=== PATIENT | female | born 1950 | race Caucasian/White ===

== ENCOUNTER 2016-09-11 10:35 | Outpatient (RCR) | payer MEDICARE ==
[~2016-09-11 10:35] MED LIST: ASPI-266 PO; EZET1TAB16 PO; NAPR220C11 PO; OXYC1TAB25 PO; Oxycodone Hcl/Acetaminophen PO; PARO20TA4 PO; PROP40TA5 PO
--- OUTSIDE RECORDS SUMMARY | 2016-09-11 10:39 | XMS REPORT | Continuity of Care Document ---
Author Author [facility] Organization [facility] Address Unknown Phone Unavailable Care Team Providers Care Ending Machine Operator Name Role Phone Cher Mei PCP [phone] Source Comments Some departments are not documenting in the electronic medical record. If you do not see the information that you expected, contact Release of Information in the Health Information Management department at [phone] for further assistance in locating additional records.[facility] Active Allergies and Adverse Reactions Allergen Noted Date Severity Reactions Comments Codeine 11/01/2007 NAUSEA ONLY Morphine 11/01/2007 RASH Current Medications Prescription Sig. Disp. Refills Start End Date Status Date VYTORIN 10-40 PO take by mouth Daily. 11/01/19 Active Patient not sure of dose 08 TOBY PO take by mouth Daily. 11/01/19 Active Patient not sure of dose 08 INNOPRAN XL PO take by mouth Daily. 11/01/19 Active Patient not sure of dose 08 TAMOXIFEN PO take by mouth Daily. 11/01/19 Active Patient not sure of dose 08 PAXIL PO take by mouth Daily. 11/01/19 Active Patient not sure of dose 08 Aspirin 81 mg PO Tab take by mouth Daily. 11/01/19 Active 08 MULTIVITAMIN PO take by mouth Daily. 11/01/19 Active 08 Active Problems Not on file Social History Tobacco Use Types Packs/Day Years Used Date Never Assessed Plan of Care Health Maintenance Due Date Last Done Comments Physical (Comprehensive) 02/19/1956 Exam Pertussis Vaccine 02/19/1960 Tetanus Vaccine 1966 Breast Cancer Screening 1989 Colorectal Cancer 1999 Screening Shingles Vaccine 2009 Osteoporosis Screening 2014 Prevnar/Pneumovax (#1) 2014 Influenza Vaccine 06/26/2016 Results from Last 3 Months Not on file
[2016-09-11 11:07] LABS: BASOPHILS % (AUTO) 1 % (0-10); EOSINOPHILS # (AUTO) 0.1 10^3/uL (0.0-0.3); EOSINOPHILS % (AUTO) 1 % (0-10); LYMPHOCYTES % (AUTO) 31 % (12-44); MEAN CORPUSCULAR HEMOGLOBIN 30 PG (25-34); MEAN CORPUSCULAR HGB CONC 34 G/DL (32-36); MEAN CORPUSCULAR VOLUME 89 FL (80-99); MEAN PLATELET VOLUME 8.4 FL (7.4-10.4); MONOCYTES # (AUTO) 0.8 X 10^3 (0.0-1.0); MONOCYTES % (AUTO) 12 % (0-12); NEUTROPHILS # (AUTO) 3.5 X 10^3 (1.8-7.8); NEUTROPHILS % (AUTO) 55 % (42-75); PLATELET COUNT 281 10^3/uL (130-400); RED BLOOD COUNT 4.51 10^6/uL (4.35-5.85); WHITE BLOOD COUNT 6.5 10^3/uL (4.3-11.0)
[2016-09-11 12:01] LABS: BILIRUBIN,TOTAL 0.5 MG/DL (0.1-1.0); CALCIUM 9.1 MG/DL (8.5-10.1); CREATININE SERUM 1.1 MG/DL (0.60-1.30); POTASSIUM 4.2 MMOL/L (3.6-5.0); TOTAL PROTEIN 6.9 G/DL (6.4-8.2)
== END 2016-12-10 | disposition home or self-care (01) ==
LOC: ONC 10:35
PROVIDERS: ATTEND Internal Medicine Hematology & Oncology
DX: Z09 Encounter for follow-up examination after completed treatment for conditions other than malignant neoplasm (principal); Z86.000 Personal history of in-situ neoplasm of breast; I12.9 Hypertensive chronic kidney disease with stage 1 through stage 4 chronic kidney disease, or unspecified chronic kidney disease; N18.3 Chronic kidney disease, stage 3 (moderate); Z90.12 Acquired absence of left breast and nipple
CPT/HCPCS: 36415; 80053; 85025; 99213

== ENCOUNTER → 2017-10-07 | Outpatient (CLI) | payer MEDICARE, OTHER ==
[2017-10-07 10:12] LABS: BASOPHILS # (AUTO) 0.1 10^3/uL (0.0-0.1); BASOPHILS % (AUTO) 1 % (0-10); EOSINOPHILS # (AUTO) 0.1 10^3/uL (0.0-0.3); EOSINOPHILS % (AUTO) 2 % (0-10); LYMPHOCYTES % (AUTO) 36 % (12-44); MEAN CORPUSCULAR HEMOGLOBIN 31 PG (25-34); MEAN CORPUSCULAR HGB CONC 34 G/DL (32-36); MEAN CORPUSCULAR VOLUME 91 FL (80-99); MEAN PLATELET VOLUME 8.8 FL (7.4-10.4); MONOCYTES # (AUTO) 0.5 X 10^3 (0.0-1.0); MONOCYTES % (AUTO) 8 % (0-12); NEUTROPHILS % (AUTO) 53 % (42-75); PLATELET COUNT 259 10^3/uL (130-400); RED BLOOD COUNT 4.55 10^6/uL (4.35-5.85); RED CELL DISTRIBUTION WIDTH 13.1 % (10.0-14.5); WHITE BLOOD COUNT 5.7 10^3/uL (4.3-11.0)
[2017-10-07 10:30] LABS: ALBUMIN 3.9 GM/DL (3.2-4.5); BILIRUBIN,TOTAL 0.4 MG/DL (0.1-1.0); CALCIUM 9.3 MG/DL (8.5-10.1); CREATININE SERUM 1.02 MG/DL (0.60-1.30); POTASSIUM 4.2 MMOL/L (3.6-5.0); TOTAL PROTEIN 7.2 GM/DL (6.4-8.2)
== END ==
LOC: EDSTATUS 12-11 09:43 → ONC 09:59
PROVIDERS: ATTEND Internal Medicine Hematology & Oncology
DX: Z09 Encounter for follow-up examination after completed treatment for conditions other than malignant neoplasm (principal); Z86.000 Personal history of in-situ neoplasm of breast; I12.9 Hypertensive chronic kidney disease with stage 1 through stage 4 chronic kidney disease, or unspecified chronic kidney disease; N18.3 Chronic kidney disease, stage 3 (moderate)
CPT/HCPCS: 36415; 80053; 85025; 99213

== ENCOUNTER → 2018-10-05 | Outpatient (CLI) | payer MEDICARE, OTHER ==
[2018-10-05 10:15] LABS: BASOPHILS % (AUTO) 1 % (0-10); EOSINOPHILS # (AUTO) 0.1 10^3/uL (0.0-0.3); EOSINOPHILS % (AUTO) 1 % (0-10); HEMATOCRIT 41 % (35-52); HEMOGLOBIN 13.7 G/DL (11.5-16.0); LYMPHOCYTES # (AUTO) 1.9 X 10^3 (1.0-4.0); LYMPHOCYTES % (AUTO) 29 % (12-44); MEAN CORPUSCULAR HEMOGLOBIN 30 PG (25-34); MEAN CORPUSCULAR HGB CONC 33 G/DL (32-36); MEAN CORPUSCULAR VOLUME 90 FL (80-99); MEAN PLATELET VOLUME 8.7 FL (7.4-10.4); MONOCYTES # (AUTO) 0.4 X 10^3 (0.0-1.0); MONOCYTES % (AUTO) 6 % (0-12); NEUTROPHILS # (AUTO) 4.3 X 10^3 (1.8-7.8); NEUTROPHILS % (AUTO) 64 % (42-75); PLATELET COUNT 301 10^3/uL (130-400); RED BLOOD COUNT 4.61 10^6/uL (4.35-5.85); RED CELL DISTRIBUTION WIDTH 13.7 % (10.0-14.5); WHITE BLOOD COUNT 6.8 10^3/uL (4.3-11.0)
[2018-10-05 10:41] LABS: ALBUMIN 4.1 GM/DL (3.2-4.5); BILIRUBIN,TOTAL 0.5 MG/DL (0.1-1.0); CALCIUM 9.4 MG/DL (8.5-10.1); POTASSIUM 3.9 MMOL/L (3.6-5.0); TOTAL PROTEIN 7.4 GM/DL (6.4-8.2)
== END ==
LOC: ONC 10:05
PROVIDERS: ATTEND Internal Medicine Hematology & Oncology
DX: Z09 Encounter for follow-up examination after completed treatment for conditions other than malignant neoplasm (principal); Z86.000 Personal history of in-situ neoplasm of breast; I12.9 Hypertensive chronic kidney disease with stage 1 through stage 4 chronic kidney disease, or unspecified chronic kidney disease; N18.3 Chronic kidney disease, stage 3 (moderate); Z79.899 Other long term (current) drug therapy
CPT/HCPCS: 36415; 80053; 85025; 99213

== ENCOUNTER → 2018-10-21 | Outpatient (CLI) | payer MEDICARE, OTHER ==
--- NOTE | 2018-10-21 12:38 | Diagnostic Imaging Report ---
INDICATION: Routine screening. COMPARISON is made with prior right mammograms from 10/12/2017 and 09/08/2016. TECHNIQUE: Unilateral right 2-D and 3-D screening mammography was performed with CAD. FINDINGS: Right breast is heterogeneously dense, limiting the sensitivity of mammography. The parenchymal pattern is stable. There are numerous benign calcifications throughout the right breast. No mass or malignant-appearing microcalcifications are seen. Right axilla is unremarkable. IMPRESSION: BI-RADS category 2. No mammographic features suspicious for malignancy are identified. Dictated by: Dictated on workstation # [id number]
== END ==
LOC: RAD 08:34
PROVIDERS: ATTEND Internal Medicine Hematology & Oncology
DX: D05.12 Intraductal carcinoma in situ of left breast (principal); Z85.3 Personal history of malignant neoplasm of breast

== ENCOUNTER → 2019-10-06 | Outpatient (CLI) | payer MEDICARE, OTHER | LOC: ONC 10:30 | PROVIDERS: ATTEND Internal Medicine Hematology & Oncology | DX: I12.9 Hypertensive chronic kidney disease with stage 1 through stage 4 chronic kidney disease, or unspecified chronic kidney disease (principal); N18.3 Chronic kidney disease, stage 3 (moderate); E78.00 Pure hypercholesterolemia, unspecified; R92.8 Other abnormal and inconclusive findings on diagnostic imaging of breast; Z86.000 Personal history of in-situ neoplasm of breast; Z90.12 Acquired absence of left breast and nipple; Z92.3 Personal history of irradiation; Z79.810 Long term (current) use of selective estrogen receptor modulators (SERMs) | CPT/HCPCS: 99213 ==

== ENCOUNTER → 2019-10-24 | Outpatient (CLI) | payer MEDICARE, OTHER ==
--- NOTE | 2019-10-24 17:58 | Diagnostic Imaging Report ---
INDICATION: Routine screening. COMPARISON: Comparison is made with prior mammograms from 10/21/2018 and 10/12/2017. TECHNIQUE: 2-D and 3-D unilateral right screening mammography was performed. The current study was also evaluated with a Computer Aided Detection (CAD) system. 3-D tomosynthesis was also performed and reviewed. FINDINGS: The right breast remains heterogeneously dense, limiting the sensitivity of mammography. Innumerable calcifications throughout the right breast are again noted, limiting evaluation. There is a cluster in the superior right breast, slightly medial to the nipple line centrally located, which appears to show some more calcifications which are indeterminate. Magnification of this area is recommended. No mass is seen. Right axilla is unremarkable. IMPRESSION: Right breast calcifications. Additional views including magnification and 90 degree lateral views are recommended. ACR BI-RADS Category 0: Incomplete. (Needs additional imaging evaluation). Result letter will be mailed to the patient. Note: At least 10% of breast cancer is not imaged by mammography. Dictated by: Dictated on workstation # [id number]
== END ==
LOC: RAD 10:58
PROVIDERS: ATTEND Internal Medicine Hematology & Oncology
DX: Z12.31 Encounter for screening mammogram for malignant neoplasm of breast (principal); R92.1 Mammographic calcification found on diagnostic imaging of breast; Z86.000 Personal history of in-situ neoplasm of breast

== ENCOUNTER → 2019-10-28 | Outpatient (CLI) | payer MEDICARE, OTHER ==
--- NOTE | 2019-10-28 16:18 | Diagnostic Imaging Report ---
INDICATION: Right breast calcifications. Patient presents for additional views. COMPARISON: Correlation is made with screening study from 10/24/2019. TECHNIQUE: Unilateral right 2-D and 3-D diagnostic mammography was performed including magnification CC and ML views as well as a conventional 90 degree lateral view. The current study was also evaluated with a Computer Aided Detection (CAD) system. 3-D tomosynthesis was also performed and reviewed. FINDINGS: A cluster of microcalcifications in the upper right breast slightly medial to the nipple line is noted and is indeterminate. These appear more numerous than prior exam. There is some pleomorphism present. No associated mass is detected. No other abnormalities are seen. IMPRESSION: Cluster of microcalcifications in the upper and slightly inner right breast mid depth appear more numerous than prior mammograms. There is questionable pleomorphism. Tissue sampling is recommended. These would be amenable to stereotactic biopsy. ACR BI-RADS Category 4: Suspicious abnormality. Result letter will be mailed to the patient. Note: At least 10% of breast cancer is not imaged by mammography. Dictated by: Dictated on workstation # [id number]
== END ==
LOC: RAD 13:04
PROVIDERS: ATTEND Nurse Practitioner Adult Health
DX: D05.12 Intraductal carcinoma in situ of left breast (principal); R92.0 Mammographic microcalcification found on diagnostic imaging of breast; R92.8 Other abnormal and inconclusive findings on diagnostic imaging of breast

== ENCOUNTER → 2019-11-09 | Outpatient (CLI) | payer MEDICARE, OTHER ==
[~2019-11-09] VITALS: Ht 172.7 cm; Wt 90.9 kg
[~2019-11-09] MED LIST changes: +LIDOCAINE 1% INJ 20 ML 20 ML VIAL INJ ONE
--- NOTE | 2019-11-09 14:18 | Diagnostic Imaging Report ---
INDICATION: Right breast calcifications. Patient presents for stereotactic biopsy. TECHNIQUE: The patient was brought to the stereotactic suite and placed in a chair in the sitting upright position. The right breast was positioned craniocaudal. Calcifications in the upper central right breast were stereotactically targeted. The superior right breast was then prepped and draped in the usual sterile fashion. A small amount of 1% lidocaine was utilized for local anesthesia. An 8 gauge stereotactic needle was advanced into the right breast from a craniocaudal approach and placed per stereotactic coordinates. A total of four core biopsies was obtained with the vacuum-assisted device. The specimen radiograph does show microcalcifications in all four samples. The images were viewed on a dedicated workstation. A marker clip was deployed. The needle was removed and hemostasis was obtained. The followup CC and ML mammography demonstrates a marker clip in the upper central right breast. IMPRESSION: Successful stereotactic biopsy of right breast calcifications in the upper central aspect. Pathology results are currently pending. Dictated by: Dictated on workstation # [id number]
== END ==
LOC: RAD 09:51
PROVIDERS: ATTEND Nurse Practitioner Adult Health
DX: D05.12 Intraductal carcinoma in situ of left breast (principal); R92.8 Other abnormal and inconclusive findings on diagnostic imaging of breast
CPT/HCPCS: 19081

== ENCOUNTER 2019-11-24 05:30 | Outpatient (CLI) | payer MEDICARE, OTHER ==
[~2019-11-24] VITALS: Ht 172 cm; Wt 95.4 kg
[~2019-11-24 05:30] MED LIST changes: -LIDOCAINE 1% INJ 20 ML 20 ML VIAL INJ ONE
[2019-11-24] MEDS ORDERED: ASPI-999 PO (09:27)
[2019-11-24] MEDS ORDERED: PROP40TA5 PO (09:27)
[2019-11-24] MEDS ORDERED: SIMV80TA21 PO (09:27)
[2019-11-24] MEDS ORDERED: PARO20TA5 PO (09:27)
== END 2019-11-24 09:39 | disposition home or self-care (01) ==
LOC: PREOP 05:30
PROVIDERS: ATTEND Surgery
DX: Z01.818 Encounter for other preprocedural examination (principal)

== ENCOUNTER 2019-11-25 10:32 | Day surgery (SDC) | payer MEDICARE, OTHER ==
[~2019-11-25] VITALS: Ht 172 cm; Wt 95.4 kg
[2019-11-25] VITALS (8 sets, daily range): BP systolic 98–137; BP diastolic 62–76
[~2019-11-25 10:32] MED LIST changes: +ASPI-999 PO; +PARO20TA5 PO; +SIMV80TA21 PO
[2019-11-25] MEDS ORDERED: LACTATED RINGERS 1,000 ML IV PRN (10:40)
[2019-11-25] MEDS ORDERED: ceFAZolin 2 GM/50 ML NS 50 ML IV ONE (10:45)
[2019-11-25] MEDS ORDERED: PROPOFOL INJECTION 50 ML IV ONE ×2 (12:23→13:38)
[2019-11-25] MEDS ORDERED: MIDAZOLAM 2 MG/2 ML (VERSED) VIAL ONE (12:23)
[2019-11-25] MEDS ORDERED: 0.9% SODIUM CHLORIDE PF INJ 20 ML VIAL ONE (12:43)
[2019-11-25] MEDS ORDERED: BUP/EPI 0.5% 1:200,000 (SENSORCAINE) 30 ML VIAL ONE (12:43)
[2019-11-25] MEDS ORDERED: HEParin (CENTRAL IV FLUSH) 500 UNIT/5 ML SYR ONE (12:43)
--- NOTE | 2019-11-25 13:57 | Progress Note-Post Operative ---
Post-Operative Progess Note Surgeon (s)/Artillery Or Naval Gunfire Observer (s) Surgeon CAROLINA CASAS DO Artillery Or Naval Gunfire Observer: na Pre-Operative Diagnosis Right BREAST CANCER Post-Operative Diagnosis same Procedure & Operative Findings Date of Procedure 11/25/19 Procedure Performed/Findings left IJ u/s guided port placement Anesthesia Type per field project manager Estimated Blood Loss Estimated blood loss (mL): min Specimens/Packing Specimens Removed na CAROLINA CASAS DO Nov 25, 2019 13:57
[2019-11-25] MEDS ORDERED: MEPERIDINE (DEMEROL) INJ 50 MG/ML IVP ONE (14:00)
[2019-11-25] MEDS ORDERED: ONDANSETRON 4 MG/2 ML (SDV) Z0FRAN IVP PRN (14:00)
[2019-11-25] MEDS ORDERED: fentaNYL INJECTION 100 MCG/2 ML AMP IVP ONE (14:00)
--- NOTE | 2019-11-25 14:03 | Discharge Inst-Simple/Standard ---
Discharge Inst-Standard Patient Instructions/Follow Up Plan of Care/Instructions/FU: 2 weeks Jorge Activity as Tolerated: No Discharge Diet: Regular Diet Other Inst to Patient Follow up Appt: Make appointment for 2 week. Instructions: No lifting greater than 10 pounds. No strenuous activity. May shower in 24 hours, no tub bath or soaking. Use incentive spirometer at home as directed. No Smoking Skin/Wound Care: May remove bandages in 24 hours, you have special glue over incisions it will fall off on its own. Place ice pack on 15 min then off 30 min and repeat to reduce swelling and discomfort for first 48 hours while awake. Symptoms to Report: Appetite Changes, Extremity Discoloration, Numbness/Tingling, Swelling Increased, Bleeding Excessive, Eyesight Changes, Pain Increased, Urine Color Change, Constipation(Persistent), Fever over 101 degree F, Pain/Pressure in chest, Urinating Difficulty, Cough Up/Vomit Blood, Heart Beat Irreg/Pounding, Pa in/Pressure in jaw, Vaginal Bleeding Increase, Cramps in feet or legs, Lightheadedness, Pain/Pressure in shoulder, Diarrhea(Persistent), Memory Changes Suddenly, Questions/Concerns, Weight gain consecutive days, Dizziness/Fainting, Nausea/Vomiting, Shortness of Breath, Weight gain over 2 pounds If questions or concerns contact your physician Or seek help at emergency department. CAROLINA CASAS DO Nov 25, 2019 14:03
--- NOTE | 2019-11-25 14:29 | Anesthesia-General Post-Op ---
MAC Patient Condition Mental Status/LOC: Same as Preop Cardiovascular: Satisfactory Nausea/Vomiting: Absent Respiratory: Satisfactory Pain: Controlled Complications: Absent Post Op Complications Complications None Follow Up Care/Instructions Patient Instructions None needed. Anesthesiology Discharge Order Discharge Order Patient is doing well, no complaints, stable vital signs, no apparent adverse anesthesia problems. No complications reported per nursing. RED SEN CRNA Nov 25, 2019 14:29
--- NOTE | 2019-11-25 14:39 | Diagnostic Imaging Report ---
INDICATION: Port placement. TIME OF EXAM: 2:16 p.m. FINDINGS: Left-sided port has tip overlying the SVC. Lungs are clear. No pneumothorax is detected. There is no effusion. IMPRESSION: Port placement. No pneumothorax is identified. Dictated by: Dictated on workstation # [id number]
--- NOTE | 2019-11-25 15:05 | Diagnostic Imaging Report ---
INDICATION: Undergoing port placement. TECHNIQUE: Single intraprocedural images superior [facility] [place] [facility]. FINDINGS/ IMPRESSION: The hospital radiology department provided fluoroscopic imaging for the clinical service in support of an interventional procedure. A radiologist was not involved in the procedure. Please reference the operating provider's procedure note. FLUOROSCOPY TIME: 38.0 seconds. Single intraprocedure image demonstrates a left IJ Ordgsr-E-Tkwx catheter to be present. Tip projects over the right paramediastinal region. If further imaging evaluation is desired, post-procedure chest radiograph would be recommended. Dictated by: Dictated on workstation # [id number]
--- NOTE | 2019-11-25 21:59 | OPERATIVE REPORT ---
DATE OF SERVICE: 11/25/2019 PREOPERATIVE DIAGNOSIS: Right breast cancer. POSTOPERATIVE DIAGNOSIS: Right breast cancer. PROCEDURE: Left internal jugular vein ultrasound-guided port placement. SURGEON: Carolina Patel DO ANESTHESIA: MAC with local. ESTIMATED BLOOD LOSS: Minimal. COMPLICATIONS: None. INDICATIONS: The patient is a 69-year-old female with recent diagnosis of right breast cancer. She needs port for chemotherapy. She understands risks and benefits of procedure and wished to proceed with procedure. Consent was signed in the chart. DESCRIPTION OF PROCEDURE: The patient was taken to the operating suite, was prepped and draped in sterile fashion. Timeout was performed. Ultrasound was used to locate the left internal jugular vein. Local anesthetic was infiltrated around it and the vein was then accessed using micro access needle. Dark nonpulsatile blood was withdrawn. Micro access wire was inserted through the needle and the needle was removed. A #11 blade scalpel was used to make a small stab incision. Dilator was then advanced over the guidewire and the guidewire and the dilator were removed. The normal guidewire was inserted through the sheath and the sheath was then removed. Fluoroscopy assured proper placement. The wire was then secured. Local anesthetic was infiltrated from the left neck down to the left chest for pocket creation. A 15 blade scalpel was used to make a skin incision on the left chest and taken down to the pectoral muscle, which was then bluntly dissected for pocket. The dilator sheath was then advanced over the guidewire under fluoroscopy and the dilator and wire were removed. The Groshong catheter was inserted through the sheath and the sheath was then removed. The Groshong wire was then removed and the catheter was then tunneled from the insertion point down to the pocket that was created on the left chest. The fluoroscopy was used to cut the catheter to length and this was then attached to the port and secured and then placed within the pocket in the usual fashion. The port was then accessed without difficulty and then flushed with saline and then heparin. Subcutaneous tissues were then reapproximated using 3-0 Vicryl and the skin was then closed using Skin Affix at the incision and on the left neck insertion site. The patient tolerated procedure well without any complications. She was taken to recovery room in stable condition. Chest x-ray pending. Job ID: [id number] DocumentID: [id number] Dictated Date: 11/25/2019 20:30:51 Tariff Compiling Clerk Date: 11/25/2019 21:58:42 Dictated By: CAROLINA PATEL DO
== END 2019-11-25 15:00 | disposition home or self-care (01) ==
LOC: SDC 10:32
PROVIDERS: ATTEND Surgery
DX: C50.911 Malignant neoplasm of unspecified site of right female breast (principal); I10 Essential (primary) hypertension; G43.909 Migraine, unspecified, not intractable, without status migrainosus; E78.00 Pure hypercholesterolemia, unspecified; E78.5 Hyperlipidemia, unspecified; E66.9 Obesity, unspecified; F41.9 Anxiety disorder, unspecified; F32.9 Major depressive disorder, single episode, unspecified; Z68.32 Body mass index [BMI] 32.0-32.9, adult; Z90.12 Acquired absence of left breast and nipple; Z79.899 Other long term (current) drug therapy; Z90.49 Acquired absence of other specified parts of digestive tract; Z90.710 Acquired absence of both cervix and uterus; Z88.5 Allergy status to narcotic agent; Z82.49 Family history of ischemic heart disease and other diseases of the circulatory system; Z80.0 Family history of malignant neoplasm of digestive organs
CPT/HCPCS: 71045; 87081

== ENCOUNTER → 2019-11-29 | Outpatient (CLI) | payer MEDICARE, OTHER | END | disposition home or self-care (01) | LOC: PREOP 05:41 | PROVIDERS: ATTEND Surgery | DX: Z01.818 Encounter for other preprocedural examination (principal) ==

== ENCOUNTER → 2019-11-29 | Outpatient (CLI) | payer MEDICARE, OTHER ==
--- NOTE | 2019-11-29 15:02 | Diagnostic Imaging Report ---
INDICATION: Left breast carcinoma. Patient also has newly diagnosed right breast carcinoma. TECHNIQUE: Serum blood glucose level at the time of injection is 94 mg/dL. Patient was administered 14.8 mCi F-18 FDG intravenously in the right antecubital location and PET imaging was performed from the top of the skull through mid thighs. Noncontrast CT was also performed for attenuation correction and anatomic correlation. All CT scans use one or more of the following dose optimizing techniques: Automated exposure control, MA and/or KvP adjustment based on patient size and exam type or iterative reconstruction. COMPARISON: No prior studies are available for comparison. FINDINGS: Symmetric uptake of activity by the brain is identified. There is normal physiologic activity in the oropharynx. There is fairly diffuse and symmetric uptake of activity within both lobes of the thyroid gland. This could be on the basis of chronic thyroiditis. Postsurgical changes of left mastectomy are noted. There is a focus of uptake in the right breast with SUV max of approximately 3.8. This likely represents patient's known recently diagnosed breast carcinoma. No definite mediastinal or hilar hypermetabolism is identified. No pulmonary parenchymal hypermetabolism is identified. Imaging through the abdomen and pelvis demonstrates physiologic activity within the GI and tracts. No suspicious focus of FDG avidity is identified. IMPRESSION: 1. Focus of hypermetabolism in right breast, likely representing patient's recently diagnosed right breast carcinoma. 2. Diffuse uptake in both lobes of the thyroid gland, suggestive of chronic thyroiditis. 3. Otherwise, unremarkable PET/CT study. There are no findings to suggest metastatic disease. Dictated by: Dictated on workstation # [id number]
== END ==
LOC: RAD 11:12
PROVIDERS: ATTEND Nurse Practitioner Adult Health
DX: C50.211 Malignant neoplasm of upper-inner quadrant of right female breast (principal)

== ENCOUNTER → 2019-12-01 | Outpatient (CLI) | payer MEDICARE, OTHER | LOC: CARD 12:55 | PROVIDERS: ATTEND Nurse Practitioner Adult Health | DX: Z01.810 Encounter for preprocedural cardiovascular examination (principal); C50.211 Malignant neoplasm of upper-inner quadrant of right female breast; I34.0 Nonrheumatic mitral (valve) insufficiency | CPT/HCPCS: 93306 ==

== ENCOUNTER → 2020-02-20 | Outpatient (RCR) | payer MEDICARE, OTHER ==
[2019-11-29 09:33] LABS: BASOPHILS % (AUTO) 1 % (0-10); EOSINOPHILS # (AUTO) 0.1 10^3/uL (0.0-0.3); EOSINOPHILS % (AUTO) 2 % (0-10); HEMATOCRIT 37 % (35-52); HEMOGLOBIN 11.6 G/DL (11.5-16.0); LYMPHOCYTES # (AUTO) 1.6 X 10^3 (1.0-4.0); LYMPHOCYTES % (AUTO) 22 % (12-44); MEAN CORPUSCULAR HEMOGLOBIN 27 PG (25-34); MEAN CORPUSCULAR HGB CONC 32 G/DL (32-36); MEAN CORPUSCULAR VOLUME 85 FL (80-99); MEAN PLATELET VOLUME 8.8 FL (7.4-10.4); MONOCYTES # (AUTO) 0.6 X 10^3 (0.0-1.0); MONOCYTES % (AUTO) 9 % (0-12); NEUTROPHILS # (AUTO) 4.6 X 10^3 (1.8-7.8); NEUTROPHILS % (AUTO) 67 % (42-75); PLATELET COUNT 329 10^3/uL (130-400); RED CELL DISTRIBUTION WIDTH 13.9 % (10.0-14.5)
[2019-11-29 09:55] LABS: ALBUMIN 3.9 GM/DL (3.2-4.5); BILIRUBIN,TOTAL 0.3 MG/DL (0.1-1.0); CALCIUM 8.8 MG/DL (8.5-10.1); CREATININE SERUM 0.94 MG/DL (0.60-1.30); POTASSIUM 4.4 MMOL/L (3.6-5.0); TOTAL PROTEIN 7.2 GM/DL (6.4-8.2)
[2019-12-12 09:03] LABS: BASOPHILS % (AUTO) 1 % (0-10); EOSINOPHILS # (AUTO) 0.1 10^3/uL (0.0-0.3); EOSINOPHILS % (AUTO) 2 % (0-10); HEMATOCRIT 35 % (35-52); HEMOGLOBIN 10.9 G/DL (11.5-16.0); LYMPHOCYTES # (AUTO) 1.5 X 10^3 (1.0-4.0); LYMPHOCYTES % (AUTO) 25 % (12-44); MEAN CORPUSCULAR HEMOGLOBIN 27 PG (25-34); MEAN CORPUSCULAR HGB CONC 32 G/DL (32-36); MEAN CORPUSCULAR VOLUME 85 FL (80-99); MEAN PLATELET VOLUME 8.9 FL (7.4-10.4); MONOCYTES # (AUTO) 0.3 X 10^3 (0.0-1.0); MONOCYTES % (AUTO) 5 % (0-12); NEUTROPHILS # (AUTO) 4.1 X 10^3 (1.8-7.8); NEUTROPHILS % (AUTO) 67 % (42-75); PLATELET COUNT 339 10^3/uL (130-400); RED CELL DISTRIBUTION WIDTH 13.9 % (10.0-14.5); WHITE BLOOD COUNT 6.1 10^3/uL (4.3-11.0)
[2019-12-12 09:19] LABS: CALCIUM 8.6 MG/DL (8.5-10.1); CREATININE SERUM 0.92 MG/DL (0.60-1.30); POTASSIUM 3.9 MMOL/L (3.6-5.0)
[2019-12-19 09:25] LABS: BASOPHILS % (AUTO) 0 % (0-10); EOSINOPHILS % (AUTO) 0 % (0-10); HEMATOCRIT 35 % (35-52); HEMOGLOBIN 11.4 G/DL (11.5-16.0); LYMPHOCYTES # (AUTO) 0.7 X 10^3 (1.0-4.0); LYMPHOCYTES % (AUTO) 13 % (12-44); MEAN CORPUSCULAR HEMOGLOBIN 27 PG (25-34); MEAN CORPUSCULAR HGB CONC 32 G/DL (32-36); MEAN CORPUSCULAR VOLUME 83 FL (80-99); MEAN PLATELET VOLUME 8.6 FL (7.4-10.4); MONOCYTES # (AUTO) 0.1 X 10^3 (0.0-1.0); MONOCYTES % (AUTO) 1 % (0-12); NEUTROPHILS # (AUTO) 4.7 X 10^3 (1.8-7.8); NEUTROPHILS % (AUTO) 86 % (42-75); PLATELET COUNT 414 10^3/uL (130-400); RED CELL DISTRIBUTION WIDTH 14.3 % (10.0-14.5); WHITE BLOOD COUNT 5.5 10^3/uL (4.3-11.0)
[2019-12-19 09:47] LABS: CALCIUM 9.2 MG/DL (8.5-10.1); CREATININE SERUM 1.17 MG/DL (0.60-1.30); POTASSIUM 3.9 MMOL/L (3.6-5.0)
[2019-12-26 08:53] LABS: BASOPHILS % (AUTO) 0 % (0-10); EOSINOPHILS % (AUTO) 0 % (0-10); HEMATOCRIT 35 % (35-52); LYMPHOCYTES # (AUTO) 0.6 X 10^3 (1.0-4.0); LYMPHOCYTES % (AUTO) 17 % (12-44); MEAN CORPUSCULAR HEMOGLOBIN 26 PG (25-34); MEAN CORPUSCULAR HGB CONC 31 G/DL (32-36); MEAN CORPUSCULAR VOLUME 84 FL (80-99); MEAN PLATELET VOLUME 8.9 FL (7.4-10.4); MONOCYTES % (AUTO) 1 % (0-12); NEUTROPHILS # (AUTO) 2.8 X 10^3 (1.8-7.8); NEUTROPHILS % (AUTO) 82 % (42-75); PLATELET COUNT 379 10^3/uL (130-400); RED CELL DISTRIBUTION WIDTH 14.4 % (10.0-14.5); WHITE BLOOD COUNT 3.4 10^3/uL (4.3-11.0)
[2019-12-26 09:14] LABS: BILIRUBIN,TOTAL 0.2 MG/DL (0.1-1.0); CALCIUM 8.8 MG/DL (8.5-10.1); CREATININE SERUM 1.09 MG/DL (0.60-1.30); POTASSIUM 3.8 MMOL/L (3.6-5.0); TOTAL PROTEIN 7.2 GM/DL (6.4-8.2)
[2020-01-02 09:06] LABS: BASOPHILS % (AUTO) 1 % (0-10); EOSINOPHILS # (AUTO) 0.1 10^3/uL (0.0-0.3); EOSINOPHILS % (AUTO) 2 % (0-10); HEMATOCRIT 35 % (35-52); HEMOGLOBIN 10.9 G/DL (11.5-16.0); LYMPHOCYTES # (AUTO) 1.4 X 10^3 (1.0-4.0); LYMPHOCYTES % (AUTO) 31 % (12-44); MEAN CORPUSCULAR HEMOGLOBIN 27 PG (25-34); MEAN CORPUSCULAR HGB CONC 31 G/DL (32-36); MEAN CORPUSCULAR VOLUME 85 FL (80-99); MONOCYTES # (AUTO) 0.4 X 10^3 (0.0-1.0); MONOCYTES % (AUTO) 9 % (0-12); NEUTROPHILS # (AUTO) 2.6 X 10^3 (1.8-7.8); NEUTROPHILS % (AUTO) 57 % (42-75); PLATELET COUNT 360 10^3/uL (130-400); RED CELL DISTRIBUTION WIDTH 14.9 % (10.0-14.5); WHITE BLOOD COUNT 4.5 10^3/uL (4.3-11.0)
[2020-01-02 09:25] LABS: CALCIUM 8.8 MG/DL (8.5-10.1); POTASSIUM 3.5 MMOL/L (3.6-5.0)
[2020-01-09 09:24] LABS: BASOPHILS % (AUTO) 1 % (0-10); EOSINOPHILS # (AUTO) 0.1 10^3/uL (0.0-0.3); EOSINOPHILS % (AUTO) 2 % (0-10); HEMATOCRIT 35 % (35-52); HEMOGLOBIN 10.8 G/DL (11.5-16.0); LYMPHOCYTES # (AUTO) 1.5 X 10^3 (1.0-4.0); LYMPHOCYTES % (AUTO) 26 % (12-44); MEAN CORPUSCULAR HEMOGLOBIN 26 PG (25-34); MEAN CORPUSCULAR HGB CONC 31 G/DL (32-36); MEAN CORPUSCULAR VOLUME 84 FL (80-99); MONOCYTES # (AUTO) 0.5 X 10^3 (0.0-1.0); MONOCYTES % (AUTO) 8 % (0-12); NEUTROPHILS # (AUTO) 3.5 X 10^3 (1.8-7.8); NEUTROPHILS % (AUTO) 63 % (42-75); PLATELET COUNT 345 10^3/uL (130-400); WHITE BLOOD COUNT 5.5 10^3/uL (4.3-11.0)
[2020-01-09 09:44] LABS: ALBUMIN 3.8 GM/DL (3.2-4.5); BILIRUBIN,TOTAL 0.4 MG/DL (0.1-1.0); CALCIUM 8.8 MG/DL (8.5-10.1); CREATININE SERUM 0.96 MG/DL (0.60-1.30); POTASSIUM 3.6 MMOL/L (3.6-5.0); TOTAL PROTEIN 6.5 GM/DL (6.4-8.2)
[2020-01-16 09:24] LABS: BASOPHILS # (AUTO) 0.1 10^3/uL (0.0-0.1); BASOPHILS % (AUTO) 1 % (0-10); EOSINOPHILS # (AUTO) 0.1 10^3/uL (0.0-0.3); EOSINOPHILS % (AUTO) 1 % (0-10); HEMATOCRIT 33 % (35-52); HEMOGLOBIN 10.7 G/DL (11.5-16.0); LYMPHOCYTES # (AUTO) 1.6 X 10^3 (1.0-4.0); LYMPHOCYTES % (AUTO) 23 % (12-44); MEAN CORPUSCULAR HEMOGLOBIN 27 PG (25-34); MEAN CORPUSCULAR HGB CONC 32 G/DL (32-36); MEAN CORPUSCULAR VOLUME 84 FL (80-99); MEAN PLATELET VOLUME 8.6 FL (7.4-10.4); MONOCYTES # (AUTO) 0.5 X 10^3 (0.0-1.0); MONOCYTES % (AUTO) 7 % (0-12); NEUTROPHILS # (AUTO) 4.8 X 10^3 (1.8-7.8); NEUTROPHILS % (AUTO) 68 % (42-75); PLATELET COUNT 348 10^3/uL (130-400)
[2020-01-16 09:42] LABS: ALBUMIN 3.8 GM/DL (3.2-4.5); BILIRUBIN,TOTAL 0.3 MG/DL (0.1-1.0); CALCIUM 8.6 MG/DL (8.5-10.1); CREATININE SERUM 0.96 MG/DL (0.60-1.30); POTASSIUM 3.6 MMOL/L (3.6-5.0); TOTAL PROTEIN 6.6 GM/DL (6.4-8.2)
[2020-01-23 09:45] LABS: BASOPHILS # (AUTO) 0.1 10^3/uL (0.0-0.1); BASOPHILS % (AUTO) 1 % (0-10); EOSINOPHILS # (AUTO) 0.1 10^3/uL (0.0-0.3); EOSINOPHILS % (AUTO) 2 % (0-10); HEMATOCRIT 35 % (35-52); HEMOGLOBIN 11.2 G/DL (11.5-16.0); LYMPHOCYTES # (AUTO) 1.5 X 10^3 (1.0-4.0); LYMPHOCYTES % (AUTO) 23 % (12-44); MEAN CORPUSCULAR HEMOGLOBIN 27 PG (25-34); MEAN CORPUSCULAR HGB CONC 32 G/DL (32-36); MEAN CORPUSCULAR VOLUME 84 FL (80-99); MEAN PLATELET VOLUME 8.9 FL (7.4-10.4); MONOCYTES # (AUTO) 0.4 X 10^3 (0.0-1.0); MONOCYTES % (AUTO) 6 % (0-12); NEUTROPHILS # (AUTO) 4.2 X 10^3 (1.8-7.8); NEUTROPHILS % (AUTO) 68 % (42-75); PLATELET COUNT 384 10^3/uL (130-400); RED CELL DISTRIBUTION WIDTH 16.2 % (10.0-14.5); WHITE BLOOD COUNT 6.3 10^3/uL (4.3-11.0)
[2020-01-23 10:01] LABS: CALCIUM 8.5 MG/DL (8.5-10.1); CREATININE SERUM 1.16 MG/DL (0.60-1.30); POTASSIUM 3.3 MMOL/L (3.6-5.0)
[2020-01-30 09:15] LABS: BASOPHILS % (AUTO) 1 % (0-10); EOSINOPHILS # (AUTO) 0.1 10^3/uL (0.0-0.3); EOSINOPHILS % (AUTO) 1 % (0-10); HEMATOCRIT 33 % (35-52); HEMOGLOBIN 10.6 G/DL (11.5-16.0); LYMPHOCYTES # (AUTO) 1.6 X 10^3 (1.0-4.0); LYMPHOCYTES % (AUTO) 27 % (12-44); MEAN CORPUSCULAR HEMOGLOBIN 27 PG (25-34); MEAN CORPUSCULAR HGB CONC 32 G/DL (32-36); MEAN CORPUSCULAR VOLUME 85 FL (80-99); MEAN PLATELET VOLUME 8.5 FL (7.4-10.4); MONOCYTES # (AUTO) 0.4 X 10^3 (0.0-1.0); MONOCYTES % (AUTO) 6 % (0-12); NEUTROPHILS # (AUTO) 3.8 X 10^3 (1.8-7.8); NEUTROPHILS % (AUTO) 64 % (42-75); PLATELET COUNT 346 10^3/uL (130-400); WHITE BLOOD COUNT 5.9 10^3/uL (4.3-11.0)
[2020-01-30 09:35] LABS: CALCIUM 8.6 MG/DL (8.5-10.1); CREATININE SERUM 1.01 MG/DL (0.60-1.30); POTASSIUM 3.5 MMOL/L (3.6-5.0)
[2020-02-06 09:20] LABS: BASOPHILS # (AUTO) 0.1 10^3/uL (0.0-0.1); BASOPHILS % (AUTO) 1 % (0-10); EOSINOPHILS # (AUTO) 0.1 10^3/uL (0.0-0.3); EOSINOPHILS % (AUTO) 1 % (0-10); HEMATOCRIT 34 % (35-52); LYMPHOCYTES # (AUTO) 1.8 X 10^3 (1.0-4.0); LYMPHOCYTES % (AUTO) 23 % (12-44); MEAN CORPUSCULAR HEMOGLOBIN 27 PG (25-34); MEAN CORPUSCULAR HGB CONC 32 G/DL (32-36); MEAN CORPUSCULAR VOLUME 84 FL (80-99); MEAN PLATELET VOLUME 8.5 FL (7.4-10.4); MONOCYTES # (AUTO) 0.6 X 10^3 (0.0-1.0); MONOCYTES % (AUTO) 8 % (0-12); NEUTROPHILS # (AUTO) 5.2 X 10^3 (1.8-7.8); NEUTROPHILS % (AUTO) 67 % (42-75); PLATELET COUNT 386 10^3/uL (130-400); RED CELL DISTRIBUTION WIDTH 17.3 % (10.0-14.5); WHITE BLOOD COUNT 7.8 10^3/uL (4.3-11.0)
[2020-02-06 09:28] LABS: ALBUMIN 3.7 GM/DL (3.2-4.5); CHLORIDE 105 MMOL/L (98-107); POTASSIUM 3.7 MMOL/L (3.6-5.0); SODIUM 140 MMOL/L (135-145)
[2020-02-06 09:30] LABS: CALCIUM 8.6 MG/DL (8.5-10.1)
[2020-02-06 09:31] LABS: GLUCOSE 99 MG/DL (70-105); TOTAL PROTEIN 6.7 GM/DL (6.4-8.2)
[2020-02-06 09:32] LABS: CARBON DIOXIDE 25 MMOL/L (21-32)
[2020-02-06 09:33] LABS: BILIRUBIN,TOTAL 0.3 MG/DL (0.1-1.0)
[2020-02-06 09:34] LABS: ALKALINE PHOSPHATASE 93 U/L (40-136); GFR ESTIMATED > 60
[2020-02-06 09:35] LABS: BUN/CREATININE RATIO 12
[2020-02-06 09:37] LABS: ALANINE AMINOTRANSFERASE 11 U/L (0-55); MAGNESIUM 2.1 MG/DL (1.6-2.4)
[2020-02-13 09:19] LABS: BASOPHILS % (AUTO) 1 % (0-10); EOSINOPHILS # (AUTO) 0.2 10^3/uL (0.0-0.3); EOSINOPHILS % (AUTO) 2 % (0-10); HEMATOCRIT 34 % (35-52); HEMOGLOBIN 10.8 G/DL (11.5-16.0); LYMPHOCYTES # (AUTO) 1.5 X 10^3 (1.0-4.0); LYMPHOCYTES % (AUTO) 20 % (12-44); MEAN CORPUSCULAR HEMOGLOBIN 28 PG (25-34); MEAN CORPUSCULAR HGB CONC 32 G/DL (32-36); MEAN CORPUSCULAR VOLUME 86 FL (80-99); MEAN PLATELET VOLUME 8.7 FL (7.4-10.4); MONOCYTES # (AUTO) 0.5 X 10^3 (0.0-1.0); MONOCYTES % (AUTO) 6 % (0-12); NEUTROPHILS # (AUTO) 5.6 X 10^3 (1.8-7.8); NEUTROPHILS % (AUTO) 72 % (42-75); PLATELET COUNT 369 10^3/uL (130-400); RED CELL DISTRIBUTION WIDTH 17.5 % (10.0-14.5); WHITE BLOOD COUNT 7.8 10^3/uL (4.3-11.0)
[2020-02-13 09:39] LABS: CALCIUM 8.4 MG/DL (8.5-10.1); CREATININE SERUM 0.97 MG/DL (0.60-1.30); POTASSIUM 3.7 MMOL/L (3.6-5.0)
[~2020-02-20] VITALS: Ht 172.7 cm; Wt 96.2 kg
[~2020-02-20] MED LIST changes: +FAMOTIDINE 20MG/2ML IV (CANCER CTR) IV SCH; +NS IV 1000 ML (CANCER CTR) IV SCH; +NS IV SCH; +ONDANSETRON MDV (CANCER CENTER 16 MG, DEXAMETHASONE INJECTION 10 MG in NS (IVPB) CANCER... IV SCH; +PACLITAXEL IV SCH; +SODIUM CHLORIDE IV SCH; +TRASTUZUMAB IV SCH; +diphenhydrAMINE 25 MG TAB (BENADRYL) CANCER CENTER PO SCH; +diphenhydrAMINE 50 MG/ML INJ (CANCER CENTER) IV PRN
[2020-02-20 09:21] LABS: BASOPHILS # (AUTO) 0.1 10^3/uL (0.0-0.1); BASOPHILS % (AUTO) 1 % (0-10); EOSINOPHILS # (AUTO) 0.2 10^3/uL (0.0-0.3); EOSINOPHILS % (AUTO) 2 % (0-10); HEMATOCRIT 35 % (35-52); HEMOGLOBIN 11.1 G/DL (11.5-16.0); LYMPHOCYTES # (AUTO) 1.9 X 10^3 (1.0-4.0); LYMPHOCYTES % (AUTO) 20 % (12-44); MEAN CORPUSCULAR HEMOGLOBIN 28 PG (25-34); MEAN CORPUSCULAR HGB CONC 32 G/DL (32-36); MEAN CORPUSCULAR VOLUME 86 FL (80-99); MEAN PLATELET VOLUME 8.9 FL (7.4-10.4); MONOCYTES # (AUTO) 0.6 X 10^3 (0.0-1.0); MONOCYTES % (AUTO) 7 % (0-12); NEUTROPHILS # (AUTO) 6.7 X 10^3 (1.8-7.8); NEUTROPHILS % (AUTO) 71 % (42-75); PLATELET COUNT 439 10^3/uL (130-400); RED CELL DISTRIBUTION WIDTH 17.8 % (10.0-14.5); WHITE BLOOD COUNT 9.4 10^3/uL (4.3-11.0)
[2020-02-20 09:37] LABS: CALCIUM 8.8 MG/DL (8.5-10.1); CREATININE SERUM 1.04 MG/DL (0.60-1.30); MAGNESIUM 2.1 MG/DL (1.6-2.4); POTASSIUM 3.9 MMOL/L (3.6-5.0)
== END | disposition home or self-care (01) ==
LOC: ONC 11-22 14:25
PROVIDERS: ATTEND Internal Medicine Hematology & Oncology
DX: Z09 Encounter for follow-up examination after completed treatment for conditions other than malignant neoplasm (principal); Z86.000 Personal history of in-situ neoplasm of breast; C50.211 Malignant neoplasm of upper-inner quadrant of right female breast; I12.9 Hypertensive chronic kidney disease with stage 1 through stage 4 chronic kidney disease, or unspecified chronic kidney disease; N18.3 Chronic kidney disease, stage 3 (moderate); Z79.899 Other long term (current) drug therapy
CPT/HCPCS: 36591; 80048; 80053; 83735; 85025; 87015; 87045; 87046; 87324; 87449; 87899; 96375; 96413; 96417

== ENCOUNTER → 2020-02-23 | Outpatient (CLI) | payer MEDICARE, OTHER ==
[~2020-02-23] MED LIST changes: -FAMOTIDINE 20MG/2ML IV (CANCER CTR) IV SCH; -NS IV 1000 ML (CANCER CTR) IV SCH; -NS IV SCH; -ONDANSETRON MDV (CANCER CENTER 16 MG, DEXAMETHASONE INJECTION 10 MG in NS (IVPB) CANCER... IV SCH; -PACLITAXEL IV SCH; -SODIUM CHLORIDE IV SCH; -TRASTUZUMAB IV SCH; -diphenhydrAMINE 25 MG TAB (BENADRYL) CANCER CENTER PO SCH; -diphenhydrAMINE 50 MG/ML INJ (CANCER CENTER) IV PRN
--- NOTE | 2020-02-23 09:35 | Diagnostic Imaging Report ---
INDICATION: Right breast carcinoma. Correlation is made with prior mammograms from 10/24/2019 and 10/21/2018. Unilateral right 2-D and 3-D diagnostic mammography was performed with CAD. Right breast remains heterogenously dense, limiting sensitivity of mammography. There are biopsy changes in the upper right breast mid depth. Previously noted suspicious microcalcifications have largely been removed. There are numerous additional calcifications throughout the right breast which appear to be fairly stable. No discrete mass is identified. The right axilla is unremarkable. IMPRESSION: BI-RADS Category 6 Postbiopsy changes in the right breast. Previously noted suspicious microcalcifications have largely been removed. There are numerous additional calcifications which are benign. No mass is seen. ACR BI-RADS Category 6: Known biopsy proven malignancy. Result letter will be mailed to the patient. Note: At least 10% of breast cancer is not imaged by mammography. Dictated by: Dictated on workstation # [id number]
--- NOTE | 2020-02-23 09:43 | Diagnostic Imaging Report ---
INDICATION: Right breast carcinoma. Correlation made with diagnostic mammogram earlier same day. Sonographic interrogation of the upper right breast from the 10-3 o'clock location was performed. No sonographic abnormality is identified. No discrete solid or cystic mass is detected. IMPRESSION: BI-RADS 6 Known right breast carcinoma status post biopsy. No discrete breast mass is identified sonographically. ACR BI-RADS Category 6: Known biopsy proven malignancy. Result letter will be mailed to the patient. Note: At least 10% of breast cancer is not imaged by mammography. Dictated by: Dictated on workstation # [id number]
== END ==
LOC: RAD 08:36
PROVIDERS: ATTEND Internal Medicine Hematology & Oncology
DX: C50.211 Malignant neoplasm of upper-inner quadrant of right female breast (principal)

== ENCOUNTER → 2020-03-01 | Outpatient (CLI) | payer MEDICARE, OTHER | LOC: CARD 12:39 | PROVIDERS: ATTEND Nurse Practitioner Adult Health | DX: Z51.81 Encounter for therapeutic drug level monitoring (principal); C50.211 Malignant neoplasm of upper-inner quadrant of right female breast; I10 Essential (primary) hypertension; R06.02 Shortness of breath; I34.0 Nonrheumatic mitral (valve) insufficiency | CPT/HCPCS: 93306 ==

== ENCOUNTER 2020-03-12 09:32 | Outpatient (RCR) | payer MEDICARE, OTHER ==
[~2020-03-12] VITALS: Ht 172 cm; Wt 91.8 kg
[~2020-03-12 09:32] MED LIST changes: +PROP20TA5 PO
== END 2020-03-12 15:04 | disposition home or self-care (01) ==
LOC: PREOP 09:32
PROVIDERS: ATTEND Surgery
DX: Z01.818 Encounter for other preprocedural examination (principal); Z01.812 Encounter for preprocedural laboratory examination; C50.911 Malignant neoplasm of unspecified site of right female breast
CPT/HCPCS: 87635

== ENCOUNTER 2020-05-21 08:49 | Outpatient (RCR) | payer MEDICARE, OTHER ==
[2020-02-27 09:12] LABS: BASOPHILS # (AUTO) 0.1 10^3/uL (0.0-0.1); BASOPHILS % (AUTO) 1 % (0-10); EOSINOPHILS # (AUTO) 0.1 10^3/uL (0.0-0.3); EOSINOPHILS % (AUTO) 2 % (0-10); HEMATOCRIT 33 % (35-52); HEMOGLOBIN 10.5 G/DL (11.5-16.0); LYMPHOCYTES # (AUTO) 1.6 X 10^3 (1.0-4.0); LYMPHOCYTES % (AUTO) 24 % (12-44); MEAN CORPUSCULAR HEMOGLOBIN 28 PG (25-34); MEAN CORPUSCULAR HGB CONC 32 G/DL (32-36); MEAN CORPUSCULAR VOLUME 87 FL (80-99); MEAN PLATELET VOLUME 8.6 FL (7.4-10.4); MONOCYTES # (AUTO) 0.4 X 10^3 (0.0-1.0); MONOCYTES % (AUTO) 6 % (0-12); NEUTROPHILS # (AUTO) 4.4 X 10^3 (1.8-7.8); NEUTROPHILS % (AUTO) 67 % (42-75); PLATELET COUNT 416 10^3/uL (130-400); WHITE BLOOD COUNT 6.6 10^3/uL (4.3-11.0)
[2020-02-27 09:35] LABS: ALBUMIN 3.7 GM/DL (3.2-4.5); BILIRUBIN,TOTAL 0.3 MG/DL (0.1-1.0); CALCIUM 8.5 MG/DL (8.5-10.1); CREATININE SERUM 1.02 MG/DL (0.60-1.30); POTASSIUM 3.6 MMOL/L (3.6-5.0); TOTAL PROTEIN 6.6 GM/DL (6.4-8.2)
[2020-03-26 09:12] LABS: BASOPHILS # (AUTO) 0.1 10^3/uL (0.0-0.1); BASOPHILS % (AUTO) 1 % (0-10); EOSINOPHILS # (AUTO) 0.6 10^3/uL (0.0-0.3); EOSINOPHILS % (AUTO) 6 % (0-10); HEMATOCRIT 32 % (35-52); HEMOGLOBIN 9.7 G/DL (11.5-16.0); LYMPHOCYTES # (AUTO) 1.2 X 10^3 (1.0-4.0); LYMPHOCYTES % (AUTO) 12 % (12-44); MEAN CORPUSCULAR HEMOGLOBIN 27 PG (25-34); MEAN CORPUSCULAR HGB CONC 31 G/DL (32-36); MEAN CORPUSCULAR VOLUME 87 FL (80-99); MEAN PLATELET VOLUME 8.8 FL (7.4-10.4); MONOCYTES # (AUTO) 0.5 X 10^3 (0.0-1.0); MONOCYTES % (AUTO) 6 % (0-12); NEUTROPHILS # (AUTO) 7.3 X 10^3 (1.8-7.8); NEUTROPHILS % (AUTO) 75 % (42-75); PLATELET COUNT 407 10^3/uL (130-400); WHITE BLOOD COUNT 9.7 10^3/uL (4.3-11.0)
[2020-03-26 09:37] LABS: ALBUMIN 3.4 GM/DL (3.2-4.5); BILIRUBIN,TOTAL 0.3 MG/DL (0.1-1.0); CALCIUM 8.6 MG/DL (8.5-10.1); CREATININE SERUM 0.99 MG/DL (0.60-1.30); POTASSIUM 3.6 MMOL/L (3.6-5.0); TOTAL PROTEIN 6.8 GM/DL (6.4-8.2)
[2020-04-23 08:59] LABS: BASOPHILS # (AUTO) 0.1 10^3/uL (0.0-0.1); BASOPHILS % (AUTO) 2 % (0-10); EOSINOPHILS # (AUTO) 0.3 10^3/uL (0.0-0.3); EOSINOPHILS % (AUTO) 6 % (0-10); HEMATOCRIT 32 % (35-52); HEMOGLOBIN 9.9 G/DL (11.5-16.0); LYMPHOCYTES # (AUTO) 1.3 X 10^3 (1.0-4.0); LYMPHOCYTES % (AUTO) 27 % (12-44); MEAN CORPUSCULAR HEMOGLOBIN 26 PG (25-34); MEAN CORPUSCULAR HGB CONC 31 G/DL (32-36); MEAN CORPUSCULAR VOLUME 85 FL (80-99); MEAN PLATELET VOLUME 8.4 FL (7.4-10.4); MONOCYTES # (AUTO) 0.5 X 10^3 (0.0-1.0); MONOCYTES % (AUTO) 10 % (0-12); NEUTROPHILS # (AUTO) 2.6 X 10^3 (1.8-7.8); NEUTROPHILS % (AUTO) 55 % (42-75); PLATELET COUNT 359 10^3/uL (130-400); RED CELL DISTRIBUTION WIDTH 15.3 % (10.0-14.5); WHITE BLOOD COUNT 4.8 10^3/uL (4.3-11.0)
[2020-04-23 09:12] LABS: ALBUMIN 3.7 GM/DL (3.2-4.5); POTASSIUM 3.9 MMOL/L (3.6-5.0)
[2020-04-23 09:14] LABS: CALCIUM 8.7 MG/DL (8.5-10.1)
[2020-04-23 09:15] LABS: TOTAL PROTEIN 7.1 GM/DL (6.4-8.2)
[2020-04-23 09:17] LABS: BILIRUBIN,TOTAL 0.3 MG/DL (0.1-1.0)
[2020-04-23 09:18] LABS: CREATININE SERUM 1.02 MG/DL (0.60-1.30)
[~2020-05-21 08:49] MED LIST changes: +DOCU-143 PO; +FAMOTIDINE 20MG/2ML IV (CANCER CTR) IV SCH; +HYDR-3812 PO; +NS IV 1000 ML (CANCER CTR) IV SCH; +NS IV SCH; +ONDANSETRON MDV (CANCER CENTER 16 MG, DEXAMETHASONE INJECTION 10 MG in NS (IVPB) CANCER... IV SCH; +TRASTUZUMAB IV SCH; +diphenhydrAMINE 25 MG TAB (BENADRYL) CANCER CENTER PO SCH
[2020-05-21 09:24] LABS: BASOPHILS # (AUTO) 0.1 10^3/uL (0.0-0.1); BASOPHILS % (AUTO) 1 % (0-10); EOSINOPHILS # (AUTO) 0.2 10^3/uL (0.0-0.3); EOSINOPHILS % (AUTO) 3 % (0-10); HEMATOCRIT 31 % (35-52); HEMOGLOBIN 9.4 G/DL (11.5-16.0); LYMPHOCYTES # (AUTO) 1.6 X 10^3 (1.0-4.0); LYMPHOCYTES % (AUTO) 27 % (12-44); MEAN CORPUSCULAR HEMOGLOBIN 24 PG (25-34); MEAN CORPUSCULAR HGB CONC 30 G/DL (32-36); MEAN CORPUSCULAR VOLUME 81 FL (80-99); MEAN PLATELET VOLUME 8.3 FL (7.4-10.4); MONOCYTES # (AUTO) 0.5 X 10^3 (0.0-1.0); MONOCYTES % (AUTO) 9 % (0-12); NEUTROPHILS # (AUTO) 3.5 X 10^3 (1.8-7.8); NEUTROPHILS % (AUTO) 60 % (42-75); PLATELET COUNT 355 10^3/uL (130-400); RED CELL DISTRIBUTION WIDTH 15.2 % (10.0-14.5); WHITE BLOOD COUNT 5.9 10^3/uL (4.3-11.0)
[2020-05-21 09:43] LABS: ALBUMIN 3.6 GM/DL (3.2-4.5); BILIRUBIN,TOTAL 0.3 MG/DL (0.1-1.0); CALCIUM 8.6 MG/DL (8.5-10.1); CREATININE SERUM 0.95 MG/DL (0.60-1.30); POTASSIUM 4.1 MMOL/L (3.6-5.0); TOTAL PROTEIN 6.9 GM/DL (6.4-8.2)
== END 2020-05-27 | disposition home or self-care (01) ==
LOC: ONC 08:49
PROVIDERS: ATTEND Internal Medicine Hematology & Oncology
DX: Z51.11 Encounter for antineoplastic chemotherapy (principal); C50.211 Malignant neoplasm of upper-inner quadrant of right female breast; I12.9 Hypertensive chronic kidney disease with stage 1 through stage 4 chronic kidney disease, or unspecified chronic kidney disease; N18.3 Chronic kidney disease, stage 3 (moderate); E78.00 Pure hypercholesterolemia, unspecified; Z86.000 Personal history of in-situ neoplasm of breast; Z79.899 Other long term (current) drug therapy; Z90.12 Acquired absence of left breast and nipple; Z92.3 Personal history of irradiation
CPT/HCPCS: 80053; 85025; 96413; G0463; 36591

== ENCOUNTER → 2020-06-11 | Outpatient (CLI) | payer MEDICARE, OTHER ==
[~2020-06-11] MED LIST changes: -FAMOTIDINE 20MG/2ML IV (CANCER CTR) IV SCH; -NS IV 1000 ML (CANCER CTR) IV SCH; -NS IV SCH; -ONDANSETRON MDV (CANCER CENTER 16 MG, DEXAMETHASONE INJECTION 10 MG in NS (IVPB) CANCER... IV SCH; -TRASTUZUMAB IV SCH; -diphenhydrAMINE 25 MG TAB (BENADRYL) CANCER CENTER PO SCH
== END ==
LOC: CARD 09:40
PROVIDERS: ATTEND Internal Medicine Hematology & Oncology
DX: Z51.11 Encounter for antineoplastic chemotherapy (principal); I34.0 Nonrheumatic mitral (valve) insufficiency; I51.7 Cardiomegaly; C50.211 Malignant neoplasm of upper-inner quadrant of right female breast; Z20.828 Contact with and (suspected) exposure to other viral communicable diseases; Z79.899 Other long term (current) drug therapy
CPT/HCPCS: 93306

== ENCOUNTER 2020-08-10 05:34 | Outpatient (RCR) | payer MEDICARE, OTHER ==
[~2020-08-10] VITALS: Ht 172 cm; Wt 88.6 kg
[~2020-08-10 05:34] MED LIST changes: +ACHD5005 PO; -HYDR-3812 PO
[2020-08-14] MEDS ORDERED: SUCR1TAB36 PO (09:49)
[2020-08-14] MEDS ORDERED: PANT40TA2 PO (09:49)
== END 2020-08-10 09:45 | disposition home or self-care (01) ==
LOC: PREOP 05:34
PROVIDERS: ATTEND Surgery
DX: Z01.812 Encounter for preprocedural laboratory examination (principal); Z20.828 Contact with and (suspected) exposure to other viral communicable diseases
CPT/HCPCS: 87635

== ENCOUNTER 2020-08-14 06:58 | Day surgery (SDC) | payer MEDICARE, OTHER ==
[~2020-08-14] VITALS: Ht 172 cm; Wt 88.6 kg
[2020-08-14] MEDS ORDERED: LACTATED RINGERS 1,000 ML IV STA (07:05)
[2020-08-14] MEDS ORDERED: LACTATED RINGERS 1,000 ML IV ONE (07:06)
[2020-08-14] MEDS ORDERED: HURRICAINE EXT TUBE (BENZOCAINE) XX PRN (07:15)
[2020-08-14 07:19] VITALS: BP 134/78
[2020-08-14] MEDS ORDERED: MIDAZOLAM 2 MG/2 ML (VERSED) VIAL ONE (07:23)
[2020-08-14] MEDS ORDERED: PROPOFOL INJECTION 50 ML IV ONE ×2 (07:23→08:42)
[2020-08-14] MEDS ORDERED: HURRICAINE EXT TUBE (BENZOCAINE) ONE (08:21)
[2020-08-14 09:30] VITALS: BP 110/68
[2020-08-14 09:35] VITALS: BP 111/74
--- NOTE | 2020-08-14 09:37 | Progress Note-Post Operative ---
Post-Operative Progess Note Surgeon (s)/Joinery Machinist (s) Surgeon CAROLINA CASAS DO Joinery Machinist: na Pre-Operative Diagnosis iron def anemia Post-Operative Diagnosis hiatal hernia, schotski's ring, reflux esophagititis, small gastric ulcers ascending colon mass, descending colon polyp, sigmoid polyp, rectal polyp, diverticulosis Procedure & Operative Findings Date of Procedure 08/14/20 Procedure Performed/Findings egd c biopsies, colonoscopy c cold biposies ascending colon mass c tattooing, hot bx polypectomy descending colon, snare polypectomy sigmoid colon polyp c tattooing, hot bx polypectomy rectal polyp Anesthesia Type per monorail hooker Estimated Blood Loss Estimated blood loss (mL): scant Specimens/Packing Specimens Removed antum, body, ge, ascending colon, descending colon sigmoid, rectal polyp CAROLINA CASAS DO Aug 14, 2020 09:37
--- NOTE | 2020-08-14 09:38 | Discharge Inst-Simple/Standard ---
Discharge Inst-Standard Discharge Medications New, Converted or Re-Newed RX: RX on Chart Patient Instructions/Follow Up Plan of Care/Instructions/FU: 2 weeks Jorge Activity as Tolerated: Yes Discharge Diet: Regular Diet (ulcer diet) CAROLINA CASAS DO Aug 14, 2020 09:38
[2020-08-14 09:40] VITALS: BP 134/65
[2020-08-14] MEDS ORDERED: SUCR1TAB36 PO (09:49)
[2020-08-14] MEDS ORDERED: PANT40TA2 PO (09:49)
[2020-08-14 10:10] VITALS: BP 113/56
[2020-08-14 10:20] VITALS: BP 113/56
--- NOTE | 2020-08-14 12:00 | OPERATIVE REPORT ---
DATE OF SERVICE: 08/14/2020 PREOPERATIVE DIAGNOSIS: Iron deficiency anemia. POSTOPERATIVE DIAGNOSES: Hiatal hernia, Schatzki's ring, reflux esophagitis, small gastric ulcers, ascending colon mass descending colon polyp, sigmoid polyp, rectal polyp, diverticulosis. PROCEDURE: EGD with biopsies, colonoscopy with cold biopsies, ascending colon mass with tattooing, hot biopsy polypectomy descending colon. Snare polypectomy, sigmoid colon polyp; with tattooing, hot biopsy polypectomy of rectal polyp. SURGEON: Carolina Patel DO ANESTHESIA: Per TECHNOLOGY DIRECTOR. ESTIMATED BLOOD LOSS: Scant. COMPLICATIONS: None. INDICATIONS: The patient is a 70-year-old female with iron deficiency anemia. She understands risks and benefits of procedure and wished to proceed with procedure. Consent was signed in the chart. DESCRIPTION OF PROCEDURE: The patient was taken to endoscopy suite, placed in the left lateral recumbent position. Timeout was performed. Scope was inserted in mouth, down the esophagus, stomach and into the duodenum without difficulty. There were no polyps, masses or ulcerations in the duodenum. Scope was slowly retracted back into the stomach where it was further insufflated. Small antral erosions/ulcerations were present in the antrum and one on the body. Biopsies of the antrum and body were obtained. Scope was retroflexed noting a small hiatal hernia. Scope was then returned to its normal position, slowly withdrawn to distal esophagus. Biopsy of the GE junction was obtained. A small Schatzki's ring was present. Some evidence of reflux esophagitis present. Scope was then slowly retracted back to completely remove noting no other pathology. Digital rectal exam was performed. There were no palpable polyps, masses or ulcerations. Scope was inserted in the rectum and advanced all the way to cecum with minimal difficulty. Prep was adequate. Scope was then slowly retracted back. There were no polyps, masses or ulcerations within the cecum. In the ascending colon, larger rectal mass was present. Multiple cold biopsies were obtained. Just distal to this area, Rimma ink was instilled in three different locations for a total of 3 mL. Scope was then slowly retracted back. No other polyps, masses or ulcerations of the ascending, transverse colon. In the descending colon, a small polyp was present, which hot biopsy polypectomy was performed. Scope was then continuously retracted back into the sigmoid colon where another larger polyp was present, which was able to have snare polypectomy performed in piecemeal. Just distal to this area, this area was tattooed as well in the same fashion previously. Scope was then continuously retracted back in the rectum, a small polyp was present, which hot biopsy polypectomy was performed. In the sigmoid colon, a minimal amount of diverticulosis was present as well to be noted. Once in the rectum, it was retroflexed noting no other pathology, scope was returned to its normal position, slowly withdrawn until completely removed. The patient tolerated procedure well without any complications. She was taken to recovery room in stable condition. RECOMMENDATIONS: The patient to follow up on biopsy results. The patient will be started on Protonix 40 mg daily and Carafate 1 gram four times a day. The patient will await biopsy results. We will discuss surgical options at that time once pathology available. Job ID: [id number] DocumentID: [id number] Dictated Date: 08/14/2020 09:43:09 Computer Lab Para Professional Date: 08/14/2020 12:00:03 Dictated By: CAROLINA PATEL DO
--- NOTE | 2020-08-14 12:10 | Anesthesia-General Post-Op ---
MAC Patient Condition Mental Status/LOC: Same as Preop Cardiovascular: Satisfactory Nausea/Vomiting: Absent Respiratory: Satisfactory Pain: Controlled Complications: Absent Post Op Complications Complications None Follow Up Care/Instructions Patient Instructions None needed. Anesthesiology Discharge Order Discharge Order Patient is doing well, no complaints, stable vital signs, no apparent adverse anesthesia problems. No complications reported per nursing. PAWEL RAMIREZ CRNA Aug 14, 2020 12:10
== END 2020-08-14 10:20 | disposition home or self-care (01) ==
LOC: ENDO 06:58
PROVIDERS: ATTEND Surgery
DX: D50.9 Iron deficiency anemia, unspecified (principal); K44.9 Diaphragmatic hernia without obstruction or gangrene; K29.50 Unspecified chronic gastritis without bleeding; K21.00 Gastro-esophageal reflux disease with esophagitis, without bleeding; D12.4 Benign neoplasm of descending colon; D12.5 Benign neoplasm of sigmoid colon; K62.1 Rectal polyp; K25.9 Gastric ulcer, unspecified as acute or chronic, without hemorrhage or perforation; K57.30 Diverticulosis of large intestine without perforation or abscess without bleeding; I12.9 Hypertensive chronic kidney disease with stage 1 through stage 4 chronic kidney disease, or unspecified chronic kidney disease; N18.30 Chronic kidney disease, stage 3 unspecified; D63.1 Anemia in chronic kidney disease; J43.9 Emphysema, unspecified; E66.9 Obesity, unspecified; Z68.29 Body mass index [BMI] 29.0-29.9, adult; Z79.82 Long term (current) use of aspirin; Z79.51 Long term (current) use of inhaled steroids; Z79.899 Other long term (current) drug therapy; Z88.5 Allergy status to narcotic agent; Z90.12 Acquired absence of left breast and nipple; Z90.710 Acquired absence of both cervix and uterus; Z90.722 Acquired absence of ovaries, bilateral

== ENCOUNTER 2020-08-20 08:58 | Outpatient (RCR) | payer MEDICARE, OTHER ==
[2020-06-18 09:05] LABS: BASOPHILS # (AUTO) 0.1 10^3/uL (0.0-0.1); BASOPHILS % (AUTO) 1 % (0-10); EOSINOPHILS # (AUTO) 0.2 10^3/uL (0.0-0.3); EOSINOPHILS % (AUTO) 2 % (0-10); HEMATOCRIT 33 % (35-52); HEMOGLOBIN 9.9 G/DL (11.5-16.0); LYMPHOCYTES # (AUTO) 1.5 X 10^3 (1.0-4.0); LYMPHOCYTES % (AUTO) 21 % (12-44); MEAN CORPUSCULAR HEMOGLOBIN 24 PG (25-34); MEAN CORPUSCULAR HGB CONC 30 G/DL (32-36); MEAN CORPUSCULAR VOLUME 79 FL (80-99); MEAN PLATELET VOLUME 8.7 FL (7.4-10.4); MONOCYTES # (AUTO) 0.5 X 10^3 (0.0-1.0); MONOCYTES % (AUTO) 7 % (0-12); NEUTROPHILS % (AUTO) 70 % (42-75); PLATELET COUNT 372 10^3/uL (130-400); WHITE BLOOD COUNT 7.2 10^3/uL (4.3-11.0)
[2020-06-18 09:31] LABS: ALBUMIN 3.7 GM/DL (3.2-4.5); BILIRUBIN,TOTAL 0.3 MG/DL (0.1-1.0); CALCIUM 8.5 MG/DL (8.5-10.1); CREATININE SERUM 0.95 MG/DL (0.60-1.30); POTASSIUM 4.1 MMOL/L (3.6-5.0); TOTAL PROTEIN 7.2 GM/DL (6.4-8.2)
[2020-07-16 09:26] LABS: BASOPHILS # (AUTO) 0.1 10^3/uL (0.0-0.1); BASOPHILS % (AUTO) 1 % (0-10); EOSINOPHILS # (AUTO) 0.1 10^3/uL (0.0-0.3); EOSINOPHILS % (AUTO) 2 % (0-10); HEMATOCRIT 37 % (35-52); HEMOGLOBIN 11.5 G/DL (11.5-16.0); LYMPHOCYTES # (AUTO) 1.5 X 10^3 (1.0-4.0); LYMPHOCYTES % (AUTO) 22 % (12-44); MEAN CORPUSCULAR HEMOGLOBIN 26 PG (25-34); MEAN CORPUSCULAR HGB CONC 31 G/DL (32-36); MEAN CORPUSCULAR VOLUME 83 FL (80-99); MEAN PLATELET VOLUME 8.8 FL (7.4-10.4); MONOCYTES # (AUTO) 0.5 X 10^3 (0.0-1.0); MONOCYTES % (AUTO) 8 % (0-12); NEUTROPHILS # (AUTO) 4.5 X 10^3 (1.8-7.8); NEUTROPHILS % (AUTO) 67 % (42-75); PLATELET COUNT 345 10^3/uL (130-400); WHITE BLOOD COUNT 6.8 10^3/uL (4.3-11.0)
[2020-07-16 09:43] LABS: ALBUMIN 3.8 GM/DL (3.2-4.5); BILIRUBIN,TOTAL 0.4 MG/DL (0.1-1.0); CALCIUM 8.6 MG/DL (8.5-10.1); CREATININE SERUM 1.01 MG/DL (0.60-1.30); TOTAL PROTEIN 7.3 GM/DL (6.4-8.2)
[2020-08-13 09:07] LABS: BASOPHILS # (AUTO) 0.1 10^3/uL (0.0-0.1); BASOPHILS % (AUTO) 1 % (0-10); EOSINOPHILS # (AUTO) 0.2 10^3/uL (0.0-0.3); EOSINOPHILS % (AUTO) 2 % (0-10); HEMATOCRIT 37 % (35-52); LYMPHOCYTES # (AUTO) 1.8 10^3/uL (1.0-4.0); LYMPHOCYTES % (AUTO) 27 % (12-44); MEAN CORPUSCULAR HEMOGLOBIN 28 pg (25-34); MEAN CORPUSCULAR HGB CONC 33 g/dL (32-36); MEAN CORPUSCULAR VOLUME 86 fL (80-99); MEAN PLATELET VOLUME 8.8 fL (9.0-12.2); MONOCYTES # (AUTO) 0.5 10^3/uL (0.0-1.0); MONOCYTES % (AUTO) 7 % (0-12); NEUTROPHILS # (AUTO) 4.2 10^3/uL (1.8-7.8); NEUTROPHILS % (AUTO) 63 % (42-75); PLATELET COUNT 322 10^3/uL (130-400); WHITE BLOOD COUNT 6.7 10^3/uL (4.3-11.0)
[2020-08-13 09:29] LABS: ALBUMIN 3.8 GM/DL (3.2-4.5); BILIRUBIN,TOTAL 0.5 MG/DL (0.1-1.0); CALCIUM 8.7 MG/DL (8.5-10.1); CREATININE SERUM 1.03 MG/DL (0.60-1.30); POTASSIUM 3.8 MMOL/L (3.6-5.0); TOTAL PROTEIN 7.1 GM/DL (6.4-8.2)
[~2020-08-20 08:58] MED LIST changes: +FERRIC CARBOXYMALTOSE (CANCER) 750 MG in NS (IVPB) CANCER CENTER 250 ML IV SCH; +NS IV 1000 ML (CANCER CTR) IV SCH; +NS IV SCH; +PANT40TA2 PO; +SUCR1TAB36 PO; +TRASTUZUMAB ANNS IV SCH; +TRASTUZUMAB IV SCH
== END 2020-08-26 | disposition home or self-care (01) ==
LOC: ONC 08:58
PROVIDERS: ATTEND Internal Medicine Hematology & Oncology
DX: Z51.11 Encounter for antineoplastic chemotherapy (principal); C50.211 Malignant neoplasm of upper-inner quadrant of right female breast; I12.9 Hypertensive chronic kidney disease with stage 1 through stage 4 chronic kidney disease, or unspecified chronic kidney disease; N18.30 Chronic kidney disease, stage 3 unspecified; E78.00 Pure hypercholesterolemia, unspecified; Z86.000 Personal history of in-situ neoplasm of breast; Z79.899 Other long term (current) drug therapy; Z90.12 Acquired absence of left breast and nipple; Z92.3 Personal history of irradiation
CPT/HCPCS: 36591; 80053; 82728; 83540; 85025; 96365; 96367; 96413

== ENCOUNTER → 2020-08-23 | Outpatient (CLI) | payer MEDICARE, OTHER ==
[~2020-08-23] MED LIST changes: -FERRIC CARBOXYMALTOSE (CANCER) 750 MG in NS (IVPB) CANCER CENTER 250 ML IV SCH; -NS IV 1000 ML (CANCER CTR) IV SCH; -NS IV SCH; -TRASTUZUMAB ANNS IV SCH; -TRASTUZUMAB IV SCH
[2020-08-23 08:30] LABS: BASOPHILS # (AUTO) 0.1 10^3/uL (0.0-0.1); BASOPHILS % (AUTO) 1 % (0-10); EOSINOPHILS # (AUTO) 0.2 10^3/uL (0.0-0.3); EOSINOPHILS % (AUTO) 3 % (0-10); HEMATOCRIT 35 % (35-52); HEMOGLOBIN 11.4 g/dL (11.5-16.0); LYMPHOCYTES # (AUTO) 1.7 10^3/uL (1.0-4.0); LYMPHOCYTES % (AUTO) 26 % (12-44); MEAN CORPUSCULAR HEMOGLOBIN 29 pg (25-34); MEAN CORPUSCULAR HGB CONC 33 g/dL (32-36); MEAN CORPUSCULAR VOLUME 87 fL (80-99); MEAN PLATELET VOLUME 8.8 fL (9.0-12.2); MONOCYTES # (AUTO) 0.5 10^3/uL (0.0-1.0); MONOCYTES % (AUTO) 7 % (0-12); NEUTROPHILS % (AUTO) 63 % (42-75); PLATELET COUNT 302 10^3/uL (130-400); WHITE BLOOD COUNT 6.4 10^3/uL (4.3-11.0)
--- NOTE | 2020-08-23 08:43 | Diagnostic Imaging Report ---
INDICATION: Colon cancer PA and lateral chest Left IJ Port-A-Cath tip projects over the SVC. Heart size and pulmonary vascularity are normal. Lungs are clear. There are no effusions or pneumothoraces. IMPRESSION: No acute abnormalities in the chest. Dictated by: Dictated on workstation # [id number]
[2020-08-23 08:49] LABS: ALBUMIN 3.7 GM/DL (3.2-4.5); BILIRUBIN,TOTAL 0.4 MG/DL (0.1-1.0); CALCIUM 8.7 MG/DL (8.5-10.1); CREATININE SERUM 1.11 MG/DL (0.60-1.30); POTASSIUM 3.6 MMOL/L (3.6-5.0); TOTAL PROTEIN 6.8 GM/DL (6.4-8.2)
== END ==
LOC: LAB 08:05 → RAD 08:05
PROVIDERS: ATTEND Surgery
DX: C18.9 Malignant neoplasm of colon, unspecified (principal)
CPT/HCPCS: 36415; 71046; 80053; 82378; 85025

== ENCOUNTER → 2020-08-29 | Outpatient (CLI) | payer MEDICARE, OTHER ==
[~2020-08-29] MED LIST changes: +CATHETER FLUSH 10 ML SYR IV PRN; +HOLD METFORMIN - RECEIVED CONTRAST 20 ML VIAL IV SCH; +IOHEXOL 350 MG/ML 100 ML (OMNIPAQUE 350) VIAL IV ONE; +LETR2.5T6 PO; +NS 100 ML (IVPB) BAG IV ONE; +PANT40TA52 PO; +SUCR1TAB PO
[2020-08-29 09:26] LABS: BASOPHILS # (AUTO) 0.1 10^3/uL (0.0-0.1); BASOPHILS % (AUTO) 1 % (0-10); EOSINOPHILS # (AUTO) 0.2 10^3/uL (0.0-0.3); EOSINOPHILS % (AUTO) 3 % (0-10); HEMATOCRIT 34 % (35-52); HEMOGLOBIN 10.8 g/dL (11.5-16.0); LYMPHOCYTES # (AUTO) 1.2 10^3/uL (1.0-4.0); LYMPHOCYTES % (AUTO) 22 % (12-44); MEAN CORPUSCULAR HEMOGLOBIN 29 pg (25-34); MEAN CORPUSCULAR HGB CONC 32 g/dL (32-36); MEAN CORPUSCULAR VOLUME 90 fL (80-99); MEAN PLATELET VOLUME 8.8 fL (9.0-12.2); MONOCYTES # (AUTO) 0.4 10^3/uL (0.0-1.0); MONOCYTES % (AUTO) 7 % (0-12); NEUTROPHILS # (AUTO) 3.7 10^3/uL (1.8-7.8); NEUTROPHILS % (AUTO) 67 % (42-75); PLATELET COUNT 264 10^3/uL (130-400); WHITE BLOOD COUNT 5.5 10^3/uL (4.3-11.0)
[2020-08-29 09:49] LABS: ALBUMIN 3.7 GM/DL (3.2-4.5); POTASSIUM 3.9 MMOL/L (3.6-5.0)
[2020-08-29 09:50] LABS: CALCIUM 8.5 MG/DL (8.5-10.1)
[2020-08-29 09:51] LABS: TOTAL PROTEIN 6.7 GM/DL (6.4-8.2)
[2020-08-29 09:53] LABS: BILIRUBIN,TOTAL 0.3 MG/DL (0.1-1.0)
--- NOTE | 2020-08-29 10:26 | Diagnostic Imaging Report ---
PROCEDURE: CT abdomen and pelvis with contrast. TECHNIQUE: Multiple contiguous axial images were obtained through the abdomen and pelvis after administration of intravenous contrast. Auto Exposure Controls were utilized during the CT exam to meet ALARA standards for radiation dose reduction. All CT scans use one or more of the following dose optimizing techniques: automated exposure control, MA and/or KvP adjustment based on patient size and exam type or iterative reconstruction. INDICATION: Colon carcinoma. COMPARISON: Correlation is made to prior CT from 10/04/2007. FINDINGS: The lung bases are clear. No discrete liver mass is identified. Gallbladder is surgically absent. No biliary ductal dilatation is seen. Pancreas and spleen are unremarkable. No adrenal mass is identified. Kidneys are unremarkable. Aorta is non-aneurysmal. No central, retroperitoneal or mesenteric lymphadenopathy is detected. There is diverticulosis of the sigmoid but no evidence of acute diverticulitis. Cecum is located in the midline deep pelvis. No pelvic lymphadenopathy is identified. Bladder is unremarkable. Uterus appears to be surgically absent. IMPRESSION: 1. Uncomplicated diverticulosis. 2. No abdominal or pelvic lymphadenopathy or mass is detected. Dictated by: Dictated on workstation # [id number]
== END ==
LOC: RAD 09:45
PROVIDERS: ATTEND Surgery
DX: C18.9 Malignant neoplasm of colon, unspecified (principal)
CPT/HCPCS: 36415; 74177; 80053; 82378; 85025

== ENCOUNTER 2020-09-03 05:45 | Outpatient (RCR) | payer MEDICARE, OTHER ==
[~2020-09-03] VITALS: Ht 172.7 cm; Wt 84.1 kg
[~2020-09-03 05:45] MED LIST changes: -CATHETER FLUSH 10 ML SYR IV PRN; -HOLD METFORMIN - RECEIVED CONTRAST 20 ML VIAL IV SCH; -IOHEXOL 350 MG/ML 100 ML (OMNIPAQUE 350) VIAL IV ONE; -NS 100 ML (IVPB) BAG IV ONE
== END 2020-09-03 09:45 | disposition home or self-care (01) ==
LOC: PREOP 05:45
PROVIDERS: ATTEND Surgery
DX: Z01.812 Encounter for preprocedural laboratory examination (principal); C18.9 Malignant neoplasm of colon, unspecified; Z20.828 Contact with and (suspected) exposure to other viral communicable diseases
CPT/HCPCS: 87635

== ENCOUNTER 2020-09-10 06:01 | Inpatient (IN) | payer MEDICARE, OTHER ==
[~2020-09-10] VITALS: Ht 172.2 cm; Wt 82.6 kg
[~2020-09-10 06:01] MED LIST changes: +HYDR-4226 PO
[2020-09-10] MEDS ORDERED: NS IV 1000 ML 1,000 ML IV STA (06:24)
[2020-09-10] MEDS ORDERED: FAMOTIDINE 20MG/2ML IV (PEPCID) IV STA (06:24)
--- NOTE | 2020-09-10 06:24 | ED GI ---
General Stated Complaint: VOMITING - POST SURG History of Present Illness Date Seen by Provider: Sep 10, 2020 Time Seen by Provider: 06:15 Allergies and Home Medications Allergies Coded Allergies: morphine (Unverified Allergy, Mild, RASH, has rec Lortab in the past, 09/06/20) codeine (Unverified Adverse Reaction, Mild, NAUSEA, 08/09/20) Home Medications Hydrocodone/Acetaminophen 1 Each Tablet, 1 TAB PO Q4-6HR Prescribed by: CAROLINA PATEL on 09/09/20 0946 Letrozole 2.5 Mg Tablet, 2.5 MG PO DAILY, (Reported) Pantoprazole Sodium 40 Mg Tablet.dr, 40 MG PO DAILY, (Reported) Paroxetine HCl 20 Mg Tablet, 20 MG PO DAILY, (Reported) Propranolol HCl 40 Mg Tablet, 40 MG PO BID, (Reported) Simvastatin 80 Mg Tablet, 80 MG PO HS, (Reported) Sucralfate 1 Gm Tablet, 1 GM PO QID PRN for ULCERS, (Reported) Patient Home Medication List Home Medication List Reviewed: Yes Review of Systems Review of Systems Constitutional: No chills, No fever EENTM: No Symptoms Reported Respiratory: No Symptoms Reported Cardiovascular: No Symptoms Reported Gastrointestinal: Abdominal Pain, Nausea, Vomiting Genitourinary: No Symptoms Reported Musculoskeletal: no symptoms reported Skin: no symptoms reported Endocrine: No Symptoms Reported Past Dyxldcp-Dfeynr-Byckpm Hx Past Med/Social Hx: Reviewed Nursing Past Med/Soc Hx Patient Social History Alcohol Beverage of Choice: Wine 2nd Hand Smoke Exposure: No Recent Hopitalizations: No Immunizations Up To Date Tetanus Booster (TDap): Less than 5yrs Date of Pneumonia Vaccine: Aug 01, 2019 Date of Influenza Vaccine: Jul 30, 2020 Seasonal Allergies Seasonal Allergies: Yes (MILD) Past Medical History Surgeries: Yes (ACOUSTIC NEUROMA, JUAN MASTECTOMY, PORT) Gallbladder, Hysterectomy Respiratory: No Currently Using CPAP: No Currently Using BIPAP: No Cardiac: Yes High Cholesterol, Hypertension Neurological: Yes Headaches /Migraines 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 Sexually Transmitted Disease: No HIV/AIDS: No Genitourinary: No Gastrointestinal: Yes (colon ca) Chronic Diarrhea Musculoskeletal: Yes (HANDS/FEET) Arthritis Endocrine: No HEENT: Yes (GLASSES) Loss of Vision: Denies Hearing Impairment: Denies Cancer: Yes Breast Did You Recieve Any Treatments: Yes What Type of Treatment Did You: Chemotherapy, Radiation, Surgical Intervention Psychosocial: Yes Anxiety, Depression Integumentary: No Recent Skin Changes Blood Disorders: Yes (FE DEF ANEMIA) Adverse Reaction/Blood Tranf: No (N/A) Family Medical History Completed stroke 19 MOTHER, FH: pancreatic cancer 19 FATHER, Hypertension 19 FATHER, 19 MOTHER, G8 BROTHER, G8 SISTER Respiratory disorder G8 BROTHER, Physical Exam Vital Signs Vital Signs - First Documented 09/10/20 06:10 Temp 35.4 Pulse 88 Resp 20 B/P (MAP) 120/82 (95) O2 Delivery Room Air Capillary Refill : Height/Weight/BMI Height: 5'8.00" Weight: 195lbs. 0.0oz. [id number]; 28.19 BMI Method: General Appearance: no apparent distress Respiratory: lungs clear, normal breath sounds Cardiovascular: normal peripheral pulses, regular rate, rhythm Gastrointestinal: soft; No guarding, No rebound; other (post surgical tende rness, incisions c/d/i ) Extremities: normal range of motion Neurologic/Psychiatric: alert, normal mood/affect, oriented x 3 Skin: other (abdominal midline incision, well healing, no signs of infection ) Progress/Results/Core Measures Results/Orders Lab Results Laboratory Tests Test 09/10/20 06:20 Range/Units White Blood Count 13.6 H 4.3-11.0 10^3/uL Red Blood Count 3.90 3.80-5.11 10^6/uL Hemoglobin 11.4 #L 11.5-16.0 g/dL Hematocrit 36 35-52 % Mean Corpuscular Volume 92 80-99 fL Mean Corpuscular Hemoglobin 29 25-34 pg Mean Corpuscular Hemoglobin Concent 32 32-36 g/dL Red Cell Distribution Width 16.2 H 10.0-14.5 % Platelet Count 426 H 130-400 10^3/uL Mean Platelet Volume 8.8 L 9.0-12.2 fL Immature Granulocyte % (Auto) 0 % Neutrophils (%) (Auto) 84 H 42-75 % Lymphocytes (%) (Auto) 10 L 12-44 % Monocytes (%) (Auto) 4 0-12 % Eosinophils (%) (Auto) 1 0-10 % Basophils (%) (Auto) 0 0-10 % Neutrophils # (Auto) 11.5 H 1.8-7.8 10^3/uL Lymphocytes # (Auto) 1.4 1.0-4.0 10^3/uL Monocytes # (Auto) 0.6 0.0-1.0 10^3/uL Eosinophils # (Auto) 0.2 0.0-0.3 10^3/uL Basophils # (Auto) 0.0 0.0-0.1 10^3/uL Immature Granulocyte # (Auto) 0.1 0.0-0.1 10^3/uL Sodium Level 141 135-145 MMOL/L Potassium Level 3.8 3.6-5.0 MMOL/L Chloride Level 104 98-107 MMOL/L Carbon Dioxide Level 23 21-32 MMOL/L Anion Gap 14 5-14 MMOL/L Blood Urea Nitrogen 17 7-18 MG/DL Creatinine 1.11 0.60-1.30 MG/DL Estimat Glomerular Filtration Rate 48 BUN/Creatinine Ratio 15 Glucose Level 132 H 70-105 MG/DL Calcium Level 9.3 8.5-10.1 MG/DL Corrected Calcium 9.5 8.5-10.1 MG/DL Total Bilirubin 0.5 0.1-1.0 MG/DL Aspartate Amino Transf (AST/SGOT) 17 5-34 U/L Alanine Aminotransferase (ALT/SGPT) 19 0-55 U/L Alkaline Phosphatase 83 40-136 U/L Total Protein 7.5 6.4-8.2 GM/DL Albumin 3.8 3.2-4.5 GM/DL My Orders Orders - EDWARDS,YANETH L DO Cbc With Automated Diff (09/10/20 06:24) Comprehensive Metabolic Panel (09/10/20 06:24) Ua Culture If Indicated (09/10/20 06:24) Acute Abd Series (09/10/20 06:24) Ondansetron Injection (Zofran Injectio (09/10/20 06:30) Ns Iv 1000 Ml (Sodium Chloride 0.9%) (09/10/20 06:24) Famotidine Injection (Pepcid Injection) (09/10/20 06:24) Ed Iv/Invasive Line Start (09/10/20 06:24) Promethazine Injection (Phenergan Injec (09/10/20 07:35) Medications Given in ED Current Medications Medications Dose Ordered Sig/Mary Route Start Time Stop Time Status Last Admin Dose Admin Ondansetron HCl 4 mg ONCE ONCE IVP 09/10/20 06:30 09/10/20 06:31 DC 09/10/20 06:37 4 MG Vital Signs/I&O 09/10/20 06:10 Temp 35.4 Pulse 88 Resp 20 B/P (MAP) 120/82 (95) O2 Delivery Room Air Progress Progress Note : Time: 08:13 Progress Note Discussed with Dr. Patel. Patient with what appears be a postop ileus. We will admit her for IV fluids and further management per Dr. Patel. Patient admitted in stable condition Diagnostic Imaging Diagonstic Imaging: Xray Plain Films/CT/US/NM/MRI: abdomen Comments post op ileus Reviewed: Reviewed by Me, Reviewed/Discussed Departure Communication (Admissions) Time/Spoke to Admitting Phy: 08:00 okay to admit, iv fluids, please consult hospitalist Time/Spoke to Consulting Phy: 08:16 Impression Primary Impression: Ileus following gastrointestinal surgery Disposition: ADMITTED INPATIENT Condition: Stable Admissions Decision to Admit Reason: Admit from ER (General) Decision to Admit/Date: Sep 10, 2020 Time/Decision to Admit Time: 08:15 Departure-Patient Inst. Referrals: SRINATH LONG MD (PCP/Family) Primary Care Physician YANETH EDWARDS DO Sep 10, 2020 06:23
[2020-09-10] MEDS ORDERED: ONDANSETRON 4 MG/2 ML (SDV) Z0FRAN IVP ONE (06:30)
[2020-09-10 06:37] LABS: BASOPHILS % (AUTO) 0 % (0-10); EOSINOPHILS # (AUTO) 0.2 10^3/uL (0.0-0.3); EOSINOPHILS % (AUTO) 1 % (0-10); HEMATOCRIT 36 % (35-52); HEMOGLOBIN 11.4 g/dL (11.5-16.0); LYMPHOCYTES # (AUTO) 1.4 10^3/uL (1.0-4.0); LYMPHOCYTES % (AUTO) 10 % (12-44); MEAN CORPUSCULAR HEMOGLOBIN 29 pg (25-34); MEAN CORPUSCULAR HGB CONC 32 g/dL (32-36); MEAN CORPUSCULAR VOLUME 92 fL (80-99); MEAN PLATELET VOLUME 8.8 fL (9.0-12.2); MONOCYTES # (AUTO) 0.6 10^3/uL (0.0-1.0); MONOCYTES % (AUTO) 4 % (0-12); NEUTROPHILS # (AUTO) 11.5 10^3/uL (1.8-7.8); NEUTROPHILS % (AUTO) 84 % (42-75); PLATELET COUNT 426 10^3/uL (130-400); WHITE BLOOD COUNT 13.6 10^3/uL (4.3-11.0)
[2020-09-10 06:50] LABS: ALBUMIN 3.8 GM/DL (3.2-4.5)
[2020-09-10 06:51] LABS: POTASSIUM 3.8 MMOL/L (3.6-5.0)
[2020-09-10 06:52] LABS: CALCIUM 9.3 MG/DL (8.5-10.1)
[2020-09-10 06:53] LABS: TOTAL PROTEIN 7.5 GM/DL (6.4-8.2)
[2020-09-10 06:55] LABS: BILIRUBIN,TOTAL 0.5 MG/DL (0.1-1.0)
[2020-09-10 06:57] LABS: CREATININE SERUM 1.11 MG/DL (0.60-1.30)
--- NOTE | 2020-09-10 06:59 | NUR ---
REPORT TO ABRIL VERAS
[2020-09-10] MEDS ORDERED: PROMETHAZINE INJ 25 MG/ML (PHENERGAN) AMP IVP STA (07:35)
--- NOTE | 2020-09-10 08:12 | Diagnostic Imaging Report ---
INDICATION: Abdominal pain. Supine and upright views of the abdomen are obtained with single view of the chest. FINDINGS: Lungs appear clear bilaterally. There is diffuse gaseous distention of small bowel. No definite free intraperitoneal gas is identified. IMPRESSION: Mild dilatation in gaseous distention of small bowel. This may reflect small bowel ileus although at least partial distal small bowel obstruction cannot be fully excluded. Dictated by: Dictated on workstation # [id number]
--- NOTE | 2020-09-10 08:18 | NUR ---
CALLED FOR ROOM
--- NOTE | 2020-09-10 08:22 | NUR ---
CALLED AND GAVE UPDATE TO AND BRING HER THINGS TO ER DOOR AND WE WILL GET THEN TO HER.
--- NOTE | 2020-09-10 08:36 | NUR ---
CALLED TO GIVE REPORT NURSE WILL CALL BACK.
--- NOTE | 2020-09-10 08:50 | NUR ---
CALLED HOUSE SUP TO COME GET PATIENT AND TRANSPORT TO FLOOR. WILL SEND SOMEONE.
--- NOTE | 2020-09-10 09:44 | NUR ---
CALLED HOUSE CHECKING TO SEE WHEN THEY MAY BE COMING TO GET PATIENT
--- NOTE | 2020-09-10 09:48 | NUR ---
STAFF FROM FLOOR HERE TO GET PATIENT.
--- NOTE | 2020-09-10 09:57 | NUR ---
NEDA RIVERA admitted to room 417-1, with an admitting diagnosis of POST OP ILEUS, on 09/10/20 from ED via WHEELCHAIR, accompanied by ED STAFF.NEDA RIVERA introduced to surroundings, call light, bed controls, phone, TV, temperature control, lights, meal times, smoking policy, visitor policy, side rail policy, bathrooms and showers. Patient Rights given to patient in the handbook. NEDA RIVERA verbalizes understanding that [facility] is not responsible for the loss or damage to any personal effects or valuables that are kept in the patients posession during their hospitalization. NEDA RIVERA verbalizes understanding of Interdisciplinary Patient Education. Patient and/or family were informed about the Rapid Response Team and its purpose.
[2020-09-10 10:04] VITALS: BP 156/81
[2020-09-10] MEDS ORDERED: ONDANSETRON 4 MG/2 ML (SDV) Z0FRAN IVP PRN ×2 (10:30→18:30)
[2020-09-10] MEDS ORDERED: NS IV 1000 ML 1,000 ML IV SCH (10:30)
--- NOTE | 2020-09-10 10:55 | Consultation - Hospitalist ---
ROBERT TYLER MED STUDENT 09/10/20 1055: HPI History of Present Illness: HPI/Chief Complaint Medicine was asked to consult for medical management on Rossana Hallman, a 70y/o F with PMH of colorectal ca r/c, breast ca r/c, HTN, hyperc holesterolemia, and gastric ulcer. Pt presented to the ER this morning with nausea and vomiting. Pt was discharged yesterday after being monitored post sub- total colectomy, performed by Dr Patel, for resection of colorectal adenocarcinoma. Pt returned to ER this morning after having persistent nausea, vomiting and dehydration. Pt looked more nauseous than when I last spoke to her two days ago, Pt states nausea got a little worse last night and she vomited 'black-green and oily' emesis five times, after speaking with a nurse on the phone pt then returned to ER. Pts nausea has persisted since the surgery, pt denies much of any improvement since the surgery. Pt states she fell full 'no room for another bit' of food when she attempts to eat. Pt denies any abd pain, chest pain, or fever. Source: patient, EMS notes reviewed, old records, other Date Seen 09/10/20 Attending Physician Mike Patel DO PCP Cher Mei MD Referring Physician Date of Admission Sep 10, 2020 at 08:10 Home Medications & Allergies Home Medications Reviewed patient Home Medication Reconciliation performed by pharmacy medication reconciliations hvac technician and/or nursing. Patients Allergies have been reviewed. Allergies Allergies Coded Allergies morphine (Unverified Allergy, Mild, RASH, has rec Lortab in the past, 09/06/20) codeine (Unverified Adverse Reaction, Mild, NAUSEA, 08/09/20) Past Blpevlo-Snpjri-Hiykxt Hx Patient Social History Alcohol Use: Regular Use Alcohol Beverage of Choice: Wine Recreational Drug Use: No 2nd Hand Smoke Exposure: No Recent Foreign Travel: No Contact w/other who traveled: No Recent Hopitalizations: No Recent Infectious Disease Expo: No Immunizations Up To Date Tetanus Booster (TDap): Less than 5yrs Date of Pneumonia Vaccine: Aug 01, 2019 Date of Influenza Vaccine: Jul 30, 2020 Seasonal Allergies Seasonal Allergies: Yes (MILD) Past Medical History Surgeries: Gallbladder, Hysterectomy Currently Using CPAP: No Currently Using BIPAP: No Cardiac: High Cholesterol, Hypertension Neurological: Headaches /Migraines Reproductive: No Sexually Transmitted Disease: No HIV/AIDS: No Hysterectomy Gastrointestinal: Chronic Diarrhea Musculoskeletal: Arthritis Loss of Vision: Denies Hearing Impairment: Denies Cancer: Breast Did You Recieve Any Treatments: Yes What Type of Treatment Did You: Chemotherapy, Radiation, Surgical Intervention Psychosocial: Anxiety, Depression Skin/Integumentary: Recent Skin Changes History of Blood Disorders: Yes (FE DEF ANEMIA) Adverse Reaction to Blood Rowley: No (N/A) Family History Completed stroke 19 MOTHER, FH: pancreatic cancer 19 FATHER, Hypertension 19 FATHER, 19 MOTHER, G8 BROTHER, G8 SISTER Respiratory disorder G8 BROTHER, Review of Systems Constitutional: No chills; diaphoresis; No dizziness, No fever Respiratory: No cough, No dyspnea on exertion, No short of breath Cardiovascular: No chest pain, No palpitations, No syncope Gastrointestinal: No abdominal pain, No constipation; diarrhea, nausea, vomiting Genitourinary: No dysuria, No incontinence Physical Exam Physical Exam Vital Signs Vital Signs - First Documented 09/10/20 09/10/20 06:10 08:50 Temp 35.4 Pulse 88 Resp 20 B/P (MAP) 120/82 (95) Pulse Ox 99 O2 Delivery Room Air Capillary Refill : Less Than 3 Seconds Height, Weight, BMI Height: 5'8.00" Weight: 195lbs. 0.0oz. 88.498498ry; 27.85 BMI Method: General Appearance: WD/WN, Mild Distress Eyes: Bilateral Eye Normal Inspection, Bilateral Eye PERRL, Bilateral Eye EOMI HEENT: PERRL/EOMI, Normal ENT Inspection Neck: Full Range of Motion, Normal Inspection Respiratory: Lungs Clear, Normal Breath Sounds, No Accessory Muscle Use, No Respiratory Distress Cardiovascular: Regular Rate, Rhythm, No Gallop, No JVD, No Murmur, Normal Peripheral Pulses Gastrointestinal: Soft, Abnormal Bowel Sounds (hyperactive BS), Distended, Tenderness Rectal: Deferred Extremity: Normal Capillary Refill, Normal Inspection Neurologic/Psychiatric: Alert, Oriented x3, Normal Mood/Affect, planograph operator II-XII Norm as Tested Skin: Normal Color, Warm/Dry Results Results/Procedures Labs Laboratory Tests 09/10/20 06:20 Patient resulted labs reviewed. Assessment/Plan Assessment and Plan Assess & Plan/Chief Complaint Post-op ileus likely causing intractable nausea and vomiting. 09/10 abd series mild gaseous SB distention likely from ileus, partial SBO could not be ruled out. NG tube ordered by sx. Repeat CMP and mag levels tomorrow. Continue IV NS solution Pt started on zofran and promethazine. Pt on NPO status, let surgery advance diet at there discretion. Encourage ambulation, consider PT/OT. Leukocytosis Pt has an elevated WBC, platelet count, and Hgb today compared to labs from couple days ago. This is likely 2/2 volume contraction due to intractable nausea and vomiting Vs an infectious etiology Vs a stress response. Colorectal adenocarcinoma Post resection. Brest Ca, r/c. Ulcer HTN Hypercholesterolemia Hold home medication. Pt on NPO status Start I.V. pantoprazole. DVT prophylaxis Start lovenox 40mg MAEVE GOODEN MD 09/10/20 1530: HPI Referring Physician Dr Patel Past Tuvsqkv-Kyzgyy-Jlhgbv Hx Past Med/Social Hx: Reviewed Nursing Past Med/Soc Hx Family History Completed stroke 19 MOTHER, FH: pancreatic cancer 19 FATHER, Hypertension 19 FATHER, 19 MOTHER, G8 BROTHER, G8 SISTER Respiratory disorder G8 BROTHER, Assessment/Plan Assessment and Plan Assess & Plan/Chief Complaint Pt admitted with post op ileus s/p total colectomy for newly diagnosed colorectal cancer, not yet staged. Management of ileus per primary. Continue with IV fluids and antiemetics. NGT ordered by Surgery. Continue PPI for small gastric ulcers and reflux esophagitis. Resume home meds when able to take PO. Diagnosis/Problems Diagnosis/Problems (1) Ileus following gastrointestinal surgery Status: Acute (2) HLD (hyperlipidemia) Status: Chronic (3) HTN (hypertension) Status: Chronic (4) GERD (gastroesophageal reflux disease) Status: Chronic (5) Colon cancer Status: Acute Qualifiers: Colon location: unspecified part of colon Qualified Codes: C18.9 - Malignant neoplasm of colon, unspecified (6) Breast cancer Status: Chronic Qualifiers: Breast location: unspecified site of breast Estrogen receptor status: unspecified Patient sex: female Laterality: unspecified laterality Qualified Codes: C50.919 - Malignant neoplasm of unspecified site of unspecified female breast (7) Depression Status: Chronic (8) Iron deficiency anemia (9) S/P colectomy Status: Acute Supervisory-Addendum Brief Verification & Attestation Participated in pt care: history, MDM, physical Personally performed: exam, history, MDM, supervision of care Care discussed with: Medical Student Procedures: n/a Results interpretation: Verified all documentation Verification and Attestation of Medical Student E/M Service A medical student performed and documented this service in my presence. I revie wed and verified all information documented by the medical student and made modifications to such information, when appropriate. I personally performed the physical exam and medical decision making. Maeve Gooden, Sep 10, 2020,15:26 ROBERT TYLER MED STUDENT Sep 10, 2020 10:55 MAEVE GOODEN MD Sep 10, 2020 15:30
[2020-09-10 12:00] VITALS: BP 145/80
--- NOTE | 2020-09-10 12:30 | NUR ---
CASAS OF PTS ON GOING NAUSEA AND VOMITING. ORDERS TO PLACE NG TUBE OBTAINED AT THIS TIME.
[2020-09-10] MEDS ORDERED: PROMETHAZINE INJ 25 MG/ML (PHENERGAN) AMP IVP PRN (13:30)
[2020-09-10] MEDS ORDERED: LIDOCAINE 2% VISCOUS 15 ML UDC ONE (14:01)
[2020-09-10] MEDS ORDERED: CHLORASEPTIC SPRAY 177 ML LIQUID MC PRN (14:15)
--- NOTE | 2020-09-10 14:39 | NUR ---
PT UNABLE TO TOLERATE NG PLACEMENT. AUGUSTO NOTIFIED. WILL NOT ATTEMPT PLACEMENT AGAIN AT THIS TIME PER AUGUSTO.
--- NOTE | 2020-09-10 15:05 | NUR ---
Pt is Anglican. Would like Communion when not NPO. Rn Field offered blessing.
[2020-09-10] MEDS ORDERED: PROMETHAZINE INJ 25 MG/ML (PHENERGAN) AMP ONE (15:47)
[2020-09-10] MEDS: PROMETHAZINE INJ 25 MG/ML (PHENERGAN) AMP IVP PRN ×2 (15:53→23:11)
[2020-09-10] MEDS: fentaNYL INJECTION 100 MCG/2 ML AMP IVP PRN (15:54)
[2020-09-10 16:00] VITALS: BP 124/81
[2020-09-10] MEDS ORDERED: ACHD5005 PO (16:05)
--- NOTE | 2020-09-10 16:07 | NUR ---
I SPOKE WITH THE PATIENT AND WENT THROUGH THE EXTERNAL MED HISTORY TO COMPLETE THIS MED REC. PATIENT WAS HERE LAST WEEK AND MEDICATIONS STAYED THE SAME, THE ONLY THING I ADDED WAS HYDRO/APAP. PATIENT IS NOT ON ANY OTC AT THIS TIME.
--- NOTE | 2020-09-10 17:34 | History & Physical-Surgical ---
CAMILLE SNIDER MED STUDENT 09/10/20 1734: History of Present Illness History of Present Illness Reason for visit/HPI N/V, s/p subtotal colectomy Date of Admission Sep 10, 2020 at 08:10 Date Seen by a Provider: Sep 10, 2020 Time Seen by a Provider: 17:00 I consulted on this patient on 09/10/20 17:00 Attending Physician Carolina Casas DO Admitting Physician Cher Mei MD Consult Rossana Hallman is a 70 YO female who had a subtotal colectomy on 09/06 for colon cancer. Pt was passing gas and having bowel movements, so she was discharged from the hospital yesterday. She returned to the ER this morning for nausea and vomiting. Pt still having liquid bowel movements. Labs done in the ER showed WBC 13.6 and hgb 11.4. Acute abdominal series showed mild dilatation and gaseous distension of small bowel, indicative of ileus or partial obstruction. After admission pt received Phenergan and Fentanyl for her symptoms and on exam denied abdominal pain. Allergies and Home Medications Allergies Coded Allergies: morphine (Unverified Allergy, Mild, RASH, has rec Lortab in the past, 09/06/20) codeine (Unverified Adverse Reaction, Mild, NAUSEA, 08/09/20) Home Medications Hydrocodone/Acetaminophen 1 Each Tablet, 1 EACH PO Q4H PRN for PAIN-MODERATE (5- 7), (Reported) Letrozole 2.5 Mg Tablet, 2.5 MG PO DAILY, (Reported) Pantoprazole Sodium 40 Mg Tablet.dr, 40 MG PO DAILY, (Reported) Paroxetine HCl 20 Mg Tablet, 20 MG PO DAILY, (Reported) Propranolol HCl 40 Mg Tablet, 40 MG PO BID, (Reported) Simvastatin 80 Mg Tablet, 80 MG PO HS, (Reported) Sucralfate 1 Gm Tablet, 1 GM PO QID PRN for ULCERS, (Reported) Patient Home Medication List Home Medication List Reviewed: Yes Past Ybynnyz-Qkegsr-Zbgwlk Hx Patient Social History Alcohol Use: Regular Use Number of Drinks Today: HH Recreational Drug Use: No 2nd Hand Smoke Exposure: No Recent Foreign Travel: No Contact w/Someone Who Travel: No Recent Infectious Disease Expo: No Recent Hopitalizations: No Immunizations Up To Date Tetanus Booster (TDap): Less than 5yrs Date of Pneumonia Vaccine: Aug 01, 2019 Date of Influenza Vaccine: Jul 30, 2020 Seasonal Allergies Seasonal Allergies: Yes (MILD) Surgeries History of Surgeries: Yes (ACOUSTIC NEUROMA, JUAN MASTECTOMY, PORT) Surgeries: Gallbladder, Hysterectomy Respiratory History of Respiratory Disorde: No Cardiovascular History of Cardiac Disorders: Yes Cardiac Disorders: High Cholesterol, Hypertension Neurological History of Neurological Disord: Yes Neurological Disorders: Headaches /Migraines Reproductive System Hx Reproductive Disorders: No Sexually Transmitted Disease: No HIV/AIDS: No ARTS THERAPIST History: Hysterectomy Genitourinary History of Genitourinary Disor: No Gastrointestinal History of Gastrointestinal Di: Yes (colon ca) Gastrointestinal Disorders: Chronic Diarrhea Musculoskeletal History of Musculoskeletal Dis: Yes (HANDS/FEET) Musculoskeletal Disorders: Arthritis Endocrine History of Endocrine Disorders: No HEENT History of HEENT Disorders: Yes (GLASSES) Loss of Vision: Denies Hearing Impairment: Denies Cancer History of Cancer: Yes Cancer: Breast Psychosocial History of Psychiatric Problem: Yes Behavioral Health Disorders: Anxiety, Depression Integumentary History of Skin or Integumenta: No Skin/Integumentary Disorders: Recent Skin Changes Blood Transfusions History of Blood Disorders: Yes (FE DEF ANEMIA) Adverse Reaction to a Blood Tr: No (N/A) Family Medical History Family Medial History: Completed stroke 19 MOTHER, FH: pancreatic cancer 19 FATHER, Hypertension 19 FATHER, 19 MOTHER, G8 BROTHER, G8 SISTER Respiratory disorder G8 BROTHER, Review of Systems Constitutional: No chills, No fever EENTM: No blurred vision, No double vision Respiratory: No cough, No short of breath Cardiovascular: No chest pain, No palpitations Gastrointestinal: nausea, vomiting Genitourinary: No dysuria, No frequency Musculoskeletal: No back pain, No joint pain Skin: No change in color, No change in hair/nails Psychiatric/Neurological: Denies Headache, Denies Numbness All Other Systems Reviewed Negative Unless Noted: Yes Physical Exam Vital Signs Vital Signs - First Documented 09/10/20 09/10/20 06:10 08:50 Temp 35.4 Pulse 88 Resp 20 B/P (MAP) 120/82 (95) Pulse Ox 99 O2 Delivery Room Air Capillary Refill : Less Than 3 Seconds Height, Weight, BMI Height: 5'8.00" Weight: 195lbs. 0.0oz. [id number]; 27.85 BMI Method: General Appearance: No Apparent Distress, WD/WN Eyes: Bilateral Eye Normal Inspection, Bilateral Eye EOMI HEENT: PERRL/EOMI, Normal ENT Inspection Neck: Normal Inspection, Supple Respiratory: Chest Non Tender, No Accessory Muscle Use, No Respiratory Distress Cardiovascular: Regular Rate, Rhythm, No Edema Gastrointestinal: Non Tender, Soft, Distended Rectal: Deferred Extremity: Normal Inspection, Non Tender, No Pedal Edema Neurologic/Psychiatric: Alert, Oriented x3, No Motor/Sensory Deficits, Normal Mood/Affect Skin: Normal Color, Warm/Dry Data Review Labs Laboratory Tests 09/10/20 06:20: White Blood Count 13.6H, Red Blood Count 3.90, Hemoglobin 11.4#L, Hematocrit 36, Mean Corpuscular Volume 92, Mean Corpuscular Hemoglobin 29, Mean Corpuscular Hemoglobin Concent 32, Red Cell Distribution Width 16.2H, Platelet Count 426H, Mean Platelet Volume 8.8L, Immature Granulocyte % (Auto) 0, Neutrophils (%) (Auto) 84H, Lymphocytes (%) (Auto) 10L, Monocytes (%) (Auto) 4, Eosinophils (%) (Auto) 1, Basophils (%) (Auto) 0, Neutrophils # (Auto) 11.5H, Lymphocytes # (Auto) 1.4, Monocytes # (Auto) 0.6, Eosinophils # (Auto) 0.2, Basophils # (Auto) 0.0, Immature Granulocyte # (Auto) 0.1, Sodium Level 141, Potassium Level 3.8, Chloride Level 104, Carbon Dioxide Level 23, Anion Gap 14, Blood Urea Nitrogen 17, Creatinine 1.11, Estimat Glomerular Filtration Rate 48, BUN/Creatinine Ratio 15, Glucose Level 132H, Calcium Level 9.3, Corrected Calcium 9.5, Total Bilirubin 0.5, Aspartate Amino Transf (AST/SGOT) 17, Alanine Aminotransferase (ALT/SGPT) 19, Alkaline Phosphatase 83, Total Protein 7.5, Albumin 3.8 Assessment/Plan Assessment/Plan Admission Diagonsis N/V, post-op ileus Assessment/Plan s/p subtotal colectomy colon cancer N/V post-op ileus IV fluids monitor labs pain control NPO encouraged ambulation and using incentive spirometer NG tube not placed d/t pt still having bowel movements Clinical Quality Measures DVT/VTE Risk/Contraindication: Risk Factor Score Per Nursin RFS Level Per Nursing on Admit: 4+=Very High CAROLINA CASAS DO 09/11/20 1631: History of Present Illness History of Present Illness Reason for visit/HPI Rossana Hallman is a 70 YO female who had a subtotal colectomy on 09/06 for colon cancer. Pt was passing gas and having bowel movements, so she was discharged from the hospital yesterday. She returned to the ER this morning for nausea and vomiting. Pt still having liquid bowel movements. Labs done in the ER showed WBC 13.6 and hgb 11.4. Acute abdominal series showed mild dilatation and gaseous distension of small bowel, indicative of ileus or partial obstruction. After admission pt received Phenergan and Fentanyl for her symptoms and on exam denied abdominal pain. Patient is a 70-year-old female who just underwent subtotal colectomy. Patient was just discharged yesterday after passing flatus. Patient went home began having increasing nausea and vomiting. She states she still having some slight liquid bowel movements. She had an x-ray of abdomen demonstrating mild dilatation gaseous distention of the small bowel. Patient with no other comp laints at this time. Denies any fever sweats chills shortness of breath or chest pain. Allergies and Home Medications Allergies Coded Allergies: morphine (Unverified Allergy, Mild, RASH, has rec Lortab in the past, 09/06/20) codeine (Unverified Adverse Reaction, Mild, NAUSEA, 08/09/20) Home Medications Hydrocodone/Acetaminophen 1 Each Tablet, 1 EACH PO Q4H PRN for PAIN-MODERATE (5- 7), (Reported) Letrozole 2.5 Mg Tablet, 2.5 MG PO DAILY, (Reported) Pantoprazole Sodium 40 Mg Tablet.dr, 40 MG PO DAILY, (Reported) Paroxetine HCl 20 Mg Tablet, 20 MG PO DAILY, (Reported) Propranolol HCl 40 Mg Tablet, 40 MG PO BID, (Reported) Simvastatin 80 Mg Tablet, 80 MG PO HS, (Reported) Sucralfate 1 Gm Tablet, 1 GM PO QID PRN for ULCERS, (Reported) Patient Home Medication List Home Medication List Reviewed: Yes Past Ngwcnqg-Kdbqla-Mliehh Hx Reviewed Nursing Assessment Reviewed/Agree w Nursing PMH: Yes Family Medical History Significant Family History: No Pertinent Family Hx Family Medial History: Completed stroke 19 MOTHER, FH: pancreatic cancer 19 FATHER, Hypertension 19 FATHER, 19 MOTHER, G8 BROTHER, G8 SISTER Respiratory disorder G8 BROTHER, Review of Systems Constitutional: No chills, No fever EENTM: No blurred vision, No double vision Respiratory: No cough, No short of breath Cardiovascular: No chest pain, No palpitations Gastrointestinal: nausea, vomiting Genitourinary: No dysuria, No frequency Musculoskeletal: No back pain, No joint pain Skin: No change in color, No change in hair/nails Psychiatric/Neurological: Denies Headache, Denies Numbness All Other Systems Reviewed Negative Unless Noted: Yes (Negative excepted noted.) Physical Exam General Appearance: No Apparent Distress, WD/WN HEENT: PERRL/EOMI, Normal ENT Inspection Neck: Normal Inspection, Supple Respiratory: Chest Non Tender, No Accessory Muscle Use, No Respiratory Distress Cardiovascular: Regular Rate, Rhythm, No Edema Gastrointestinal: Distended, Other (Incisional tenderness incisions are clean dry intact no signs of infection) Rectal: Deferred Back: Normal Inspection, No CVA Tenderness Extremity: Normal Inspection, Non Tender Neurologic/Psychiatric: Alert, Oriented x3, No Motor/Sensory Deficits, Normal Mood/Affect Skin: Normal Color, Warm/Dry Lymphatic: No Adenopathy Assessment/Plan Assessment/Plan Admission Diagonsis Nausea vomiting Postop ileus Status post subtotal colectomy Admission Status: Inpatient Order (span 2 midnights) Reason for Inpatient Admission: Patient needs to be admitted for return of bowel function and continue monitoring. We will likely need two nights minimum Assessment/Plan s/p subtotal colectomy colon cancer N/V post-op ileus IV fluids monitor labs pain control NPO encouraged ambulation and using incentive spirometer NG tube not placed d/t pt still having bowel movements Supervisory-Addendum Brief Verification & Attestation Participated in pt care: history, MDM, physical Personally performed: exam, history, MDM, supervision of care Care discussed with: Medical Student Procedures: n/a Results interpretation: Verified all documentation Verification and Attestation of Medical Student E/M Service A medical student performed and documented this service in my presence. I reviewed and verified all information documented by the medical student and made modifications to such information, when appropriate. I personally performed the physical exam and medical decision making. Carolina Casas, Sep 10, 2020,17:00 SNIDER,CAMILLE MED STUDENT Sep 10, 2020 17:34 CAROLINA CASAS DO Sep 11, 2020 16:31
[2020-09-10] MEDS: LACTATED RINGERS 1,000 ML IV SCH (19:53)
[2020-09-10 20:00] VITALS: BP 134/84
[2020-09-10] MEDS: ONDANSETRON 4 MG/2 ML (SDV) Z0FRAN IVP PRN (20:37)
--- NOTE | 2020-09-10 23:37 | NUR ---
Recvd report from Noel, assuming care of patient at this time.
[2020-09-11 00:06] VITALS: BP 170/79
[2020-09-11] MEDS: ONDANSETRON 4 MG/2 ML (SDV) Z0FRAN IVP PRN ×3 (02:06→20:29)
[2020-09-11] MEDS: fentaNYL INJECTION 100 MCG/2 ML AMP IVP PRN ×4 (02:06→15:14)
[2020-09-11] MEDS: LACTATED RINGERS 1,000 ML IV SCH ×3 (03:53→20:27)
[2020-09-11 04:00] VITALS: BP 157/77
[2020-09-11 05:01] LABS: BASOPHILS % (AUTO) 0 % (0-10); EOSINOPHILS # (AUTO) 0.1 10^3/uL (0.0-0.3); EOSINOPHILS % (AUTO) 1 % (0-10); HEMATOCRIT 31 % (35-52); HEMOGLOBIN 9.8 g/dL (11.5-16.0); LYMPHOCYTES % (AUTO) 13 % (12-44); MEAN CORPUSCULAR HEMOGLOBIN 29 pg (25-34); MEAN CORPUSCULAR HGB CONC 32 g/dL (32-36); MEAN CORPUSCULAR VOLUME 91 fL (80-99); MEAN PLATELET VOLUME 8.9 fL (9.0-12.2); MONOCYTES # (AUTO) 0.5 10^3/uL (0.0-1.0); MONOCYTES % (AUTO) 7 % (0-12); NEUTROPHILS # (AUTO) 6.1 10^3/uL (1.8-7.8); NEUTROPHILS % (AUTO) 79 % (42-75); PLATELET COUNT 392 10^3/uL (130-400); WHITE BLOOD COUNT 7.7 10^3/uL (4.3-11.0)
[2020-09-11 05:13] LABS: ALBUMIN 3.5 GM/DL (3.2-4.5); CHLORIDE 109 MMOL/L (98-107); POTASSIUM 3.5 MMOL/L (3.6-5.0); SODIUM 144 MMOL/L (135-145)
[2020-09-11 05:14] LABS: CALCIUM 8.2 MG/DL (8.5-10.1)
[2020-09-11 05:15] LABS: GLUCOSE 124 MG/DL (70-105); TOTAL PROTEIN 6.6 GM/DL (6.4-8.2)
[2020-09-11 05:16] LABS: CARBON DIOXIDE 20 MMOL/L (21-32)
[2020-09-11 05:17] LABS: BILIRUBIN,TOTAL 0.4 MG/DL (0.1-1.0)
[2020-09-11 05:19] LABS: ALKALINE PHOSPHATASE 68 U/L (40-136); GFR ESTIMATED > 60
[2020-09-11 05:20] LABS: BUN/CREATININE RATIO 21
[2020-09-11 05:22] LABS: ALANINE AMINOTRANSFERASE 18 U/L (0-55)
[2020-09-11] MEDS: PROMETHAZINE INJ 25 MG/ML (PHENERGAN) AMP IVP PRN ×2 (06:08→15:14)
--- NOTE | 2020-09-11 07:35 | Progress Note - Surgery ---
CAMILLE SNIDER MED STUDENT 09/11/20 0734: Subjective Date Seen by a Provider: Sep 11, 2020 Time Seen by a Provider: 06:45 Subjective/Events-last exam Per nurse, pt had nausea all night and one episode of vomiting that was dark green and feculent-smelling. Nurse states has had liquid BM's, but none since midnight. Pt complains of nausea and dizziness, but denies any abdominal pain, headache, or shortness of breath. Says her pain is under control with medication, but whatever she is being given for nausea is not helping. Has not been ambulating or using IS much because she does not feel well. WBC today is 7.7, hgb is 9.8, down from 11.4 yesterday. Potassium 3.5. Objective Exam Vital Signs Date Time Temp Pulse Resp B/P (MAP) Pulse Ox O2 Delivery O2 Flow Rate FiO2 09/11/20 04:00 36.6 101 20 157/77 (103) 95 Room Air 09/11/20 00:06 36.9 105 16 170/79 (109) 97 Room Air 09/10/20 20:39 Room Air 09/10/20 20:00 36.3 101 16 134/84 (101) 97 Room Air 09/10/20 16:00 36.6 99 16 124/81 (95) 95 Room Air 09/10/20 12:00 36.1 80 20 145/80 (101) 98 Room Air 09/10/20 11:00 Room Air 09/10/20 10:04 35.6 82 20 156/81 97 Room Air 09/10/20 08:50 75 18 135/72 99 Room Air I & O 09/11/20 07:00 Intake Total 3050 ml Output Total 650 ml Balance 2400 ml Capillary Refill : Less Than 3 Seconds General Appearance: No Apparent Distress, WD/WN HEENT: PERRL/EOMI, Normal ENT Inspection Neck: Normal Inspection, Supple Respiratory: Chest Non Tender, No Accessory Muscle Use, No Respiratory Distress Cardiovascular: No Edema, Tachycardia Gastrointestinal: soft; No guarding, No rebound; other (mild diffuse tenderness, incisions c/d/i ) Extremity: Normal Inspection, Non Tender, No Pedal Edema Neurologic/Psychiatric: Oriented x3, No Motor/Sensory Deficits, Normal Mood/ Affect, Other (awake but drowsy) Skin: Normal Color, Warm/Dry Results Lab Laboratory Tests 09/11/20 04:50: White Blood Count 7.7, Red Blood Count 3.38L, Hemoglobin 9.8L, Hematocrit 31L, Mean Corpuscular Volume 91, Mean Corpuscular Hemoglobin 29, Mean Corpuscular He moglobin Concent 32, Red Cell Distribution Width 16.0H, Platelet Count 392, Mean Platelet Volume 8.9L, Immature Granulocyte % (Auto) 0, Neutrophils (%) (Auto) 79H, Lymphocytes (%) (Auto) 13, Monocytes (%) (Auto) 7, Eosinophils (%) (Auto) 1, Basophils (%) (Auto) 0, Neutrophils # (Auto) 6.1, Lymphocytes # (Auto) 1.0, Monocytes # (Auto) 0.5, Eosinophils # (Auto) 0.1, Basophils # (Auto) 0.0, Immature Granulocyte # (Auto) 0.0, Sodium Level 144, Potassium Level 3.5L, Chloride Level 109H, Carbon Dioxide Level 20L, Anion Gap 15H, Blood Urea Nitrogen 17, Creatinine 0.80, Estimat Glomerular Filtration Rate > 60, BUN/Creatinine Ratio 21, Glucose Level 124H, Calcium Level 8.2L, Corrected Calcium 8.6, Total Bilirubin 0.4, Aspartate Amino Transf (AST/SGOT) 15, Alanine Aminotransferase (ALT/SGPT) 18, Alkaline Phosphatase 68, Total Protein 6.6, Albumin 3.5 Assessment/Plan Assessment/Plan Assessment/Plan s/p subtotal colectomy colon cancer N/V post-op ileus mild hypokalemia IV fluids anti-emetics monitor labs pain control NPO no NG tube-pt having BM's Clinical Quality Measures DVT/VTE Risk/Contraindication: Risk Factor Score Per Nursin RFS Level Per Nursing on Admit: 4+=Very High CAROLINA PATEL DO 09/12/201930: Subjective Subjective/Events-last exam Patient still with nausea and some emesis. Still having some slight liquid bowel movement. Pain is under control. Ambulating some in the room. No other complaints at this time denies any fever sweats chills shortness of breath or chest pain. Objective Exam General Appearance: No Apparent Distress, WD/WN HEENT: PERRL/EOMI Neck: Non Tender, Supple Respiratory: Chest Non Tender, No Accessory Muscle Use, No Respiratory Distress Cardiovascular: Regular Rate, Rhythm, No JVD Gastrointestinal: soft, tenderness (Incisional, incisions clean dry intact no signs of infection) Neurologic/Psychiatric: Alert, Oriented x3, No Motor/Sensory Deficits Skin: Normal Color, Warm/Dry Lymphatic: No Adenopathy Assessment/Plan Assessment/Plan Assessment/Plan s/p subtotal colectomy colon cancer N/V post-op ileus mild hypokalemia IV fluids anti-emetics monitor labs pain control NPO no NG tube-pt having BM's Supervisory-Addendum Brief Verification & Attestation Participated in pt care: history, MDM, physical Personally performed: exam, history, MDM, supervision of care Care discussed with: Medical Student Procedures: n/a Results interpretation: Verified all documentation Verification and Attestation of Medical Student E/M Service A medical student performed and documented this service in my presence. I reviewed and verified all information documented by the medical student and made modifications to such information, when appropriate. I personally performed the physical exam and medical decision making. Carolina Patel, Sep 11, 2020,19:31 CAMILLE SNIDER MED STUDENT Sep 11, 2020 07:34 CAROLINA PATEL DO Sep 12, 2020 19:31
[2020-09-11 08:02] VITALS: BP 147/85
--- NOTE | 2020-09-11 08:52 | Progress Note - Hospitalist ---
ROBERT TYLER MED STUDENT 09/11/20 0852: Subjective HPI/CC On Admission Time Seen by Provider: 08:25 Medicine was asked to consult for medical management on Rossana Hallman, a 70y/o F with PMH of colorectal ca r/c, breast ca r/c, HTN, hypercholesterolemia, and gastric ulcer. Pt presented to the ER this morning with nausea and vomiting. Pt was discharged yesterday after being monitored post sub-total colectomy, performed by Dr Patel, for resection of colorectal adenocarcinoma. Pt returned to ER this morning after having persistent nausea, vomiting and dehydration. Pt looked more nauseous than when I last spoke to her two days ago, Pt states nausea got a little worse last night and she vomited 'black-green and oily' emesis five times, after speaking with a nurse on the phone pt then returned to ER. Pts nausea has persisted since the surgery, pt denies much of any improvement since the surgery. Pt states she fell full 'no room for another bit' of food when she attempts to eat. Pt denies any abd pain, chest pain, or fever. Subjective/Events-last exam Pts nausea is worse then when I last spoke to her yesterday. When asked if its the worse its been since the sx she agreed that yes it was. Pt vomited and passed stool 30 minutes before my visit. Pt denies any relief with current anti- emetic regimen. Pt has no other complaints at this time, but is clearly distressed from the severity of her nausea. Pt had the NGT removed yesterday because it was causing her pain and discomfort. No calf tenderness palpated or erythema inspected apon PE. Review of Systems General: No Night Sweats, No Fatigue Pulmonary: No Dyspnea, No Cough, No Pleuritic Chest Pain Cardiovascular: No: Chest Pain, Palpitations Gastrointestinal: Nausea, Vomiting, Diarrhea; No: Abdominal Pain, Constipation Objective Exam Vital Signs Vital Signs Date Time Temp Pulse Resp B/P (MAP) Pulse Ox O2 Delivery O2 Flow Rate FiO2 09/11/20 08:02 36.8 99 16 147/85 (105) 97 Room Air Capillary Refill : Less Than 3 Seconds General Appearance: WD/WN, Mild Distress HEENT: PERRL/EOMI; No Moist Mucous Membranes; Other (Dry mucous membranes ) Neck: Full Range of Motion, Normal Inspection Respiratory: Lungs Clear, Normal Breath Sounds, No Accessory Muscle Use, No Respiratory Distress Cardiovascular: Regular Rate, Rhythm, No Edema, No JVD, Normal Peripheral Pulse s Gastrointestinal: Normal Bowel Sounds, Other (did not palpate stomach due to pts level of nausea. ) Rectal: Deferred Extremity: Normal Inspection, Non Tender, No Calf Tenderness, No Pedal Edema Neurologic/Psychiatric: Alert, Oriented x3, film replacement orderer II-XII Norm as Tested, Depressed Affect Results/Procedures Lab Laboratory Tests 09/11/20 04:50 Patient resulted labs reviewed. Assessment/Plan Assessment and Plan Assess & Plan/Chief Complaint Post-op ileus likely causing intractable nausea and vomiting. NG tube discontinued due to pt intolerance. Repeat CMP and mag levels tomorrow. Continue fluid replacement. Contine zofran and promethazine. Continue increasing Zofran to 8mg Q8hr. Pt on NPO status, let surgery advance diet at there discretion. Encourage ambulation, consider PT/OT. Add scopolamine to regimen. Hypokalemia Mildly decreased at 3.5 today. Add 40mEQ K I.V. Post-surgical anemia, normocytic. Hgb decreased to 9.8 today from 11.4. This is likely 2/2 pt fluid dehydration. Current Hgb status similiar to values from last week. Follow serially, no intervention required. Prerenal DELMI Resolved. Creatinine decreased to 0.8 from 1.11 yesterday. Colorectal adenocarcinoma Post resection via subtotal colectomy; this sx is source of post-op ileus. Brest Ca, post resection via b/l mastectomy. Gastric Ulcer HTN Hypercholesterolemia Hold home medication. Pt on NPO status Start I.V. pantoprazole. DVT prophylaxis Start lovenox 40mg Clinical Quality Measures DVT/VTE Risk/Contraindication: Risk Factor Score Per Nursin RFS Level Per Nursing on Admit: 4+=Very High MAEVE GOODEN MD 09/11/20 1456: Assessment/Plan Assessment and Plan Assess & Plan/Chief Complaint Pt about the same as yesterday. Still passing gas but still having nausea. Was unable to tolerate NGT placement so no decompression was done. Will increase Zofran dose and add scopolamine patch. Discussed with Surgery and plan to continue to monitor. Diagnosis/Problems Diagnosis/Problems (1) S/P colectomy Status: Acute (2) Colon cancer Status: Acute Qualifiers: Qualified Codes: C18.9 - Malignant neoplasm of colon, unspecified (3) Breast cancer Status: Chronic Qualifiers: Qualified Codes: C50.919 - Malignant neoplasm of unspecified site of unspecified female breast (4) GERD (gastroesophageal reflux disease) Status: Chronic (5) HTN (hypertension) Status: Chronic (6) HLD (hyperlipidemia) Status: Chronic (7) Ileus following gastrointestinal surgery Status: Acute Supervisory-Addendum Brief Verification & Attestation Participated in pt care: history, MDM, physical Personally performed: exam, history, MDM, supervision of care Care discussed with: Medical Student Procedures: n/a Results interpretation: Verified all documentation Verification and Attestation of Medical Student E/M Service A medical student performed and documented this service in my presence. I reviewed and verified all information documented by the medical student and made modifications to such information, when appropriate. I personally performed the physical exam and medical decision making. Maeve Gooden, Sep 11, 2020,14:51 ROBERT TYLER MED STUDENT Sep 11, 2020 08:52 MAEVE GOODEN MD Sep 11, 2020 14:56
[2020-09-11] MEDS ORDERED: SCOPOLAMINE 1.5 MG (TRANSDERM-SCOP) PATCH TD NR (09:30)
[2020-09-11] MEDS: PANTOPRAZOLE 40 MG (PROTONIX) VIAL IV SCH (09:44)
[2020-09-11 11:44] VITALS: BP 143/84
--- NOTE | 2020-09-11 14:03 | NUR ---
International Project Engineer provided prayer and blessing.
[2020-09-11 15:30] VITALS: BP 153/84
[2020-09-11 19:31] VITALS: BP 146/82
[2020-09-12 00:13] VITALS: BP 132/62
[2020-09-12] MEDS: LACTATED RINGERS 1,000 ML IV SCH ×3 (04:54→22:13)
[2020-09-12 04:59] VITALS: BP 111/58
[2020-09-12 07:56] VITALS: BP 125/72
[2020-09-12] MEDS: PANTOPRAZOLE 40 MG (PROTONIX) VIAL IV SCH (08:32)
--- NOTE | 2020-09-12 08:52 | Progress Note - Surgery ---
CAMILLE SNIDER MED STUDENT 09/12/20 0852: Subjective Date Seen by a Provider: Sep 12, 2020 Time Seen by a Provider: 07:00 Subjective/Events-last exam Pt states she feels much improved from yesterday after scopolamine patch. States she only had one episode of vomiting after the patch was placed, none today. Continues to pass flatus and have liquid bowel movements. Has been eating ice chips with no problems. States she has not been walking or using incentive spirometer because of her nausea yesterday but says she will work on it today. Objective Exam Vital Signs Date Time Temp Pulse Resp B/P (MAP) Pulse Ox O2 Delivery O2 Flow Rate FiO2 09/12/20 07:56 36.4 74 20 125/72 (89) 97 Room Air 09/12/20 04:59 36.4 83 20 111/58 (75) 97 Room Air 09/12/20 00:13 36.5 88 18 132/62 (85) 95 Room Air 09/11/20 20:27 Room Air 09/11/20 19:31 36.6 101 20 146/82 (103) 98 Room Air 09/11/20 15:30 36.4 106 18 153/84 (107) 97 Room Air 09/11/20 11:44 36.8 103 18 143/84 (103) 98 Room Air I & O 09/12/20 07:00 Intake Total 1000 ml Output Total 1250 ml Balance -250 ml Capillary Refill : Less Than 3 Seconds General Appearance: No Apparent Distress, WD/WN HEENT: PERRL/EOMI, Normal ENT Inspection Neck: Normal Inspection, Supple Respiratory: Chest Non Tender, No Accessory Muscle Use, No Respiratory Distress Cardiovascular: Regular Rate, Rhythm, No Edema Gastrointestinal: non tender, soft; No guarding, No rebound; other (incision c/d/i) Extremity: Normal Inspection, Non Tender, No Pedal Edema Neurologic/Psychiatric: Alert, Oriented x3, No Motor/Sensory Deficits, Normal Mood/Affect, Other (somnolent, but awake and answering questions) Skin: Normal Color, Warm/Dry Lymphatic: No Adenopathy Assessment/Plan Assessment/Plan Assessment/Plan s/p subtotal colectomy colon cancer N/V post-op ileus IV fluids monitor labs pain control advance to clear liquid diet encouraged ambulation and using incentive spirometer NG tube not placed d/t pt still having bowel movements Clinical Quality Measures DVT/VTE Risk/Contraindication: Risk Factor Score Per Nursin RFS Level Per Nursing on Admit: 4+=Very High CAROLINA PATEL DO 09/12/201933: Subjective Subjective/Events-last exam Patient is having better bowel movements. She is not really having any nausea or vomiting after scopolamine patch placed. Patient tolerating ice chips and wanting liquids. She is walking some she is using incentive spirometer minimally, but planning on increasing activity now. Denies any fever chills shortness of breath or chest pain at this time. Objective Exam General Appearance: No Apparent Distress, WD/WN HEENT: PERRL/EOMI, Normal ENT Inspection Neck: Normal Inspection, Supple Respiratory: Chest Non Tender, No Accessory Muscle Use, No Respiratory Distress Cardiovascular: Regular Rate, Rhythm, No Edema Gastrointestinal: non tender, soft; No guarding, No rebound; other (incision c/d/i) Extremity: Normal Inspection, Non Tender Neurologic/Psychiatric: Alert, Oriented x3, No Motor/Sensory Deficits, Normal Mood/Affect Skin: Normal Color, Warm/Dry Lymphatic: No Adenopathy Assessment/Plan Assessment/Plan Assessment/Plan s/p subtotal colectomy colon cancer N/V post-op ileus Hypokalemia IV fluids replace potassium monitor labs pain control advance to clear liquid diet encouraged ambulation and using incentive spirometer Supervisory-Addendum Brief Verification & Attestation Participated in pt care: history, MDM, physical Personally performed: exam, history, MDM, supervision of care Care discussed with: Medical Student Procedures: n/a Results interpretation: Verified all documentation Verification and Attestation of Medical Student E/M Service A medical student performed and documented this service in my presence. I reviewed and verified all information documented by the medical student and made modifications to such information, when appropriate. I personally performed the physical exam and medical decision making. Carolina Patel, Sep 12, 2020,19:33 CAMILLE SNIDER MED STUDENT Sep 12, 2020 08:52 CAROLINA PATEL DO Sep 12, 2020 19:34
[2020-09-12 09:19] LABS: HEMOGLOBIN 8.8 g/dL (11.5-16.0); WHITE BLOOD COUNT 6.8 10^3/uL (4.3-11.0)
[2020-09-12 09:29] LABS: CHLORIDE 109 MMOL/L (98-107); POTASSIUM 2.8 MMOL/L (3.6-5.0); SODIUM 145 MMOL/L (135-145)
[2020-09-12 09:30] LABS: CALCIUM 7.9 MG/DL (8.5-10.1)
[2020-09-12 09:31] LABS: GLUCOSE 87 MG/DL (70-105)
[2020-09-12 09:32] LABS: CARBON DIOXIDE 26 MMOL/L (21-32)
[2020-09-12 09:35] LABS: CREATININE SERUM 0.81 MG/DL (0.60-1.30); GFR ESTIMATED > 60
[2020-09-12 09:36] LABS: BUN/CREATININE RATIO 19
--- NOTE | 2020-09-12 09:57 | Progress Note - Hospitalist ---
ROBERT TYLER MED STUDENT 09/12/20 0957: Subjective HPI/CC On Admission Time Seen by Provider: 08:40 Medicine was asked to consult for medical management on Rossana Hallman, a 70y/o F with PMH of colorectal ca r/c, breast ca r/c, HTN, hypercholesterolemia, and gastric ulcer. Pt presented to the ER this morning with nausea and vomiting. Pt was discharged yesterday after being monitored post sub-total colectomy, performed by Dr Patel, for resection of colorectal adenocarcinoma. Pt returned to ER this morning after having persistent nausea, vomiting and dehydration. Pt looked more nauseous than when I last spoke to her two days ago, Pt states nausea got a little worse last night and she vomited 'black-green and oily' emesis five times, after speaking with a nurse on the phone pt then returned to ER. Pts nausea has persisted since the surgery, pt denies much of any improvement since the surgery. Pt states she fell full 'no room for another bit' of food when she attempts to eat. Pt denies any abd pain, chest pain, or fever. Subjective/Events-last exam Pt markedly improved compared to yesterday visit. Pt has near no nausea and rest, and only notices it when she changes positions in bed. Pt has not received Zofran or promethazine this morning. Pt states her improvement started yesterday after the scopolamine patch was started and credits it for her improvement. Pt inquired about advancing her diet today. Pt has been passing frequent diarrhea the past day too. Pt denies any abd pain, chest pain, calf tenderness, and has negative Jer sign b/l. Review of Systems General: No Chills, No Night Sweats, No Fatigue Pulmonary: No Dyspnea, No Cough, No Pleuritic Chest Pain Cardiovascular: No: Chest Pain, Palpitations, Edema Gastrointestinal: Nausea, Diarrhea; No: Vomiting, Abdominal Pain, Constipation Genitourinary: No Dysuria, No Incontinence Objective Exam Vital Signs Vital Signs Date Time Temp Pulse Resp B/P (MAP) Pulse Ox O2 Delivery O2 Flow Rate FiO2 09/12/20 08:00 Room Air 09/12/20 07:56 36.4 74 20 125/72 (89) 97 Capillary Refill : Less Than 3 Seconds General Appearance: No Apparent Distress, Chronically ill HEENT: PERRL/EOMI, Normal ENT Inspection, Moist Mucous Membranes Neck: Full Range of Motion, Normal Inspection Respiratory: Lungs Clear, Normal Breath Sounds, No Accessory Muscle Use, No Respiratory Distress Cardiovascular: Regular Rate, Rhythm, No Edema, No Gallop, No Murmur, Normal Peripheral Pulses Gastrointestinal: Normal Bowel Sounds, Soft, Tenderness, Other (abd sx site c/d/i ) Rectal: Deferred Extremity: Normal Capillary Refill, Normal Inspection, No Calf Tenderness, No Pedal Edema, Other (neg jer sign b/l ) Neurologic/Psychiatric: Alert, Oriented x3, Normal Mood/Affect, census enumerator II-XII Norm as Tested Skin: Normal Color, Warm/Dry Results/Procedures Lab Laboratory Tests 09/12/20 09:07 Patient resulted labs reviewed. Assessment/Plan Assessment and Plan Assess & Plan/Chief Complaint Post-op ileus likely causing intractable nausea and vomiting. Continue fluid replacement. Discontinue zofran and promethazine. Continue scopolamine patch. Pt on NPO status, let surgery advance diet at there discretion. Encourage ambulation, consider PT/OT. Hypokalemia Moderately decreased at 2.8 today. Add 120mEQ K I.V. Post-surgical anemia, normocytic. Current Hgb status similiar to values from last week. Follow serially, no intervention required. Colorectal adenocarcinoma Post resection via subtotal colectomy; this sx is source of post-op ileus. Brest Ca, post resection via b/l mastectomy. Gastric Ulcer HTN Hypercholesterolemia Hold home medication. I.V. pantoprazole. DVT prophylaxis lovenox 40mg Prerenal DELMI Resolved. Clinical Quality Measures DVT/VTE Risk/Contraindication: Risk Factor Score Per Nursin RFS Level Per Nursing on Admit: 4+=Very High MAEVE GOODEN MD 09/12/20 1300: Assessment/Plan Assessment and Plan Assess & Plan/Chief Complaint patient doing much better. No further vomiting since last night. Would like to advance diet. Discussed with Surgery and will advance diet and monitor with hopeful plan to DC home tomorrow. Supervisory-Addendum Brief Verification & Attestation Participated in pt care: history, MDM, physical Personally performed: exam, history, MDM, supervision of care Care discussed with: Medical Student Procedures: n/a Results interpretation: Verified all documentation Verification and Attestation of Medical Student E/M Service A medical student performed and documented this service in my presence. I reviewed and verified all information documented by the medical student and made modifications to such information, when appropriate. I personally performed the physical exam and medical decision making. Maeve Gooden, Sep 12, 2020,12:57 ROBERT TYLER MED STUDENT Sep 12, 2020 09:57 MAEVE GOODEN MD Sep 12, 2020 13:00
[2020-09-12 12:00] VITALS: BP 118/62
--- NOTE | 2020-09-12 14:13 | Physical Therapy Evaluation ---
PT Evaluation-General Medical Diagnosis Admission Date Sep 10, 2020 at 08:10 Medical Diagnosis: subtotal colectomy Onset Date: Sep 10, 2020 Therapy Diagnosis Therapy Diagnosis: impaired mobility Height/Weight Height (Feet): 5 Height (Inches): 8.00 Weight (Pounds): 195 Weight (Ounces): 0.0 Precautions Precautions/Isolations: Standard Precautions Referral Physician: Giacomo Reason for Referral: Evaluation/Treatment Medical History Additional Medical History urgeries History of Surgeries: Yes (ACOUSTIC NEUROMA, JUAN MASTECTOMY, PORT) Surgeries: Gallbladder, Hysterectomy Respiratory History of Respiratory Disorde: No Cardiovascular History of Cardiac Disorders: Yes Cardiac Disorders: High Cholesterol, Hypertension Neurological History of Neurological Disord: Yes Neurological Disorders: Headaches /Migraines Reproductive System Hx Reproductive Disorders: No Sexually Transmitted Disease: No HIV/AIDS: 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 Genitourinary History of Genitourinary Disor: No Gastrointestinal History of Gastrointestinal Di: Yes (colon ca) Gastrointestinal Disorders: Chronic Diarrhea Musculoskeletal History of Musculoskeletal Dis: Yes (HANDS/FEET) Musculoskeletal Disorders: Arthritis Endocrine History of Endocrine Disorders: No HEENT History of HEENT Disorders: Yes (GLASSES) Loss of Vision: Denies Hearing Impairment: Denies Cancer History of Cancer: Yes Cancer: Breast Psychosocial History of Psychiatric Problem: Yes Behavioral Health Disorders: Anxiety, Depression Reviewed History: Yes Social History Home: Single Level Current Living Status: Spouse Entry Into Home: Stairs With Railing PT Steps Into Home: 4 Prior Prior Level of Function SCALE: Activities may be completed with or without assistive devices. 6-Gyvydhwopr-pinjhcg completes the activity by him/herself with no assistance from a helper. 5-Set-up or Clean-up Assistance-helper sets up or cleans up; patient completes activity. [place] assists only prior to or following the activity. 4-Supervision or Touching Assistance-helper provides verbal cues and/or touching/steadying and/or contact guard assistance as patient completes activity. Assistance may be provided throughout the activity or intermittently. 3-Partial/Moderate Assistance-helper does LESS THAN HALF the effort. [place] lifts, holds or supports trunk or limbs, but provides less than half the effort. 2-Substantial/Maximal Assistance-helper does MORE THAN HALF the effort. [place] lifts or holds trunk or limbs and provides more than half the effort. 7-Cbhwsxuyo-eqocof does ALL the effort. Patient does none of the effort to complete the activity. Or, the assistance of 2 or more helpers is required for the patient to complete the activity. If activity was not attempted, code reason: 7-Patient Refused. 9-Not Applicable-not attempted and the patient did not perform the activity before the current illness, exacerbation or injury. 10-Not Attempted due to Environmental Limitations-(lack of equipment, weather restraints, etc.). 88-Not Attempted due to Medical Conditions or Safety Concerns. Bed Mobility: 6 Transfers (B,C,W/C): 6 Gait: 6 Stairs: 6 Indoor Mobility (Ambulation): Independent Stairs: Independent PT Evaluation-Current Subjective Patient in bed pre tx, agrees to PT, has no pain at rest. Patient states she just ambulated in the hallway with nursing several hundred feet. She says she doesn't need any help other than to have somebody push the IV pole. Patient states she has no unsteadiness and feels totally confident in her ability to ambulate here and at home. The nurse also says she is ambulating in the anaya way with them, without difficulty. Pt/Family Goals "to go home" Objective Patient Orientation: Person, Place, Situation Attachments: IV ROM/Strength ROM Lower Extremities WNL Strength Lower Extremities LLE (hip flexion 5/5, knee flexion 5/5, knee extension 5/5, dorsiflexion 5/5), RLE (hip flexion 5/5, knee flexion 5/5, knee extension 5/5, dorsiflexion 5/5) Sensory Hearing: Functional Sensation Right Lower Extremit: Intact Sensation Left Lower Extremity: Intact Assessment/Needs Patient is ambulating in the hallway with nursing without difficulty. She has no strength or ROM impairments. Patient states she has no unsteadiness or lightheadedness during activity or ambulation. Patient will be discharged at this time. Rehab Potential: Good PT Plan Treatment/Plan Treatment Plan: Discontinue PT Treatment Duration: Sep 12, 2020 Frequency: Patient and/or Family Agrees t: Yes Discharge Recommendations Plan DC Therapy Discharge Recommendati: Home & Family Time/GCodes Time In: 1355 Time Out: 1405 Total Billed Treatment Time: 10 Total Billed Treatment 1 visit EVL CIRILO PURI PT Sep 12, 2020 14:13
--- NOTE | 2020-09-12 14:41 | NUR ---
"RD ASSESSMENT PMHx: s/p subtotal colectomy 09/06/2020; hypercholesterolemia; HTN; chronic diarrhea; CA(breast,colon) PT INTERACTION: Pt was awake and pleasant during nutritional assessment. Pt states current appetite is good. Note PO intake 25% x1meal, per chart review. Pt states following a regular diet at home, and has no issues with chewing/swallowing food. Pt states some recent issues with nausea and vomiting. Note episode of vomiting on 09/10, per chart review. Pt states recent issues with diarrhea. Note last BM was 09/11 and pt not currently on bowel regimen per chart review. Pt states recent wt loss, but is unsure of amount/timeframe. Note recent 20# wt loss x6mon, per chart review. ABNORMAL NUTRITION-RELATED LAB VALUES LOW: K 2.8; Ca 7.9; HIGH: Cl 109; Est. kcal needs: 0808-5729 kcal | 20-25 kcal/kg Est. Pro needs: 66-83 g Pro | 0.8-1.0 g Pro/kg PES STATEMENT: Inadequate oral intake (NI-2.1) related to loss of appetite, nausea, vomiting, and diarrhea, as evidenced by pt interview, chart review, and PO intake 25% x1meal. INTERVENTION: Continue with current diet order of Clear Liquid diet. Would recommend diet advancement as medically able and as tolerated. Pt may benefit from nutrition supplementation if PO intake declines. Encouraged pt to eat when able. Will continue to follow and reassess as pt needs, intake, and status change. Fifi Gerber, MS RD LD"
[2020-09-12 16:36] VITALS: BP 132/66
--- NOTE | 2020-09-12 18:44 | NUR ---
CALLED DR ALFARO ABOUT LOW POTASSIUM LAB. NEW ORDER RECEIVED.
[2020-09-12] MEDS: POTASSIUM CL 10MEQ/50ML IVPB 50 ML IV SCH ×4 (18:51→22:05)
[2020-09-12 21:00] VITALS: BP 132/89
[2020-09-13 00:36] VITALS: BP 139/77
[2020-09-13] MEDS: ONDANSETRON 4 MG/2 ML (SDV) Z0FRAN IVP PRN (00:46)
--- NOTE | 2020-09-13 01:30 | NUR ---
0046-pt c/o upset stomach, gas, heartburn, nausea prn zofran given-see dec 119-pt resting in bed with eyes closed, respirations even not labored, no distress noted
[2020-09-13 04:20] VITALS: BP 144/69
[2020-09-13] MEDS: PROMETHAZINE INJ 25 MG/ML (PHENERGAN) AMP IVP PRN (05:19)
[2020-09-13 06:46] LABS: HEMOGLOBIN 9.4 g/dL (11.5-16.0); MEAN PLATELET VOLUME 8.8 fL (9.0-12.2); WHITE BLOOD COUNT 7.6 10^3/uL (4.3-11.0)
[2020-09-13] MEDS: LACTATED RINGERS 1,000 ML IV SCH ×3 (06:54→16:01)
--- NOTE | 2020-09-13 06:57 | NUR ---
0519-pt voices nausea-prn Phenergan given see dec 599-pt resting in bed with eyes closed, respirations even not labored, no distress noted
[2020-09-13 07:11] LABS: BUN/CREATININE RATIO 10; CARBON DIOXIDE 24 MMOL/L (21-32); CHLORIDE 105 MMOL/L (98-107); CREATININE SERUM 0.78 MG/DL (0.60-1.30); GFR ESTIMATED > 60; GLUCOSE 102 MG/DL (70-105); MAGNESIUM 1.8 MG/DL (1.6-2.4); POTASSIUM 2.8 MMOL/L (3.6-5.0); SODIUM 140 MMOL/L (135-145)
[2020-09-13 07:45] VITALS: BP 130/65
--- NOTE | 2020-09-13 08:49 | Progress Note - Hospitalist ---
ROBERT TYLER MED STUDENT 09/13/20 0849: Subjective HPI/CC On Admission Medicine was asked to consult for medical management on Rossana Hallman, a 70y/o F with PMH of colorectal ca r/c, breast ca r/c, HTN, hypercholesterolemia, and gastric ulcer. Pt presented to the ER this morning with nausea and vomiting. Pt was discharged yesterday after being monitored post sub-total colectomy, performed by Dr Patel, for resection of colorectal adenoca rcinoma. Pt returned to ER this morning after having persistent nausea, vomiting and dehydration. Pt looked more nauseous than when I last spoke to her two days ago, Pt states nausea got a little worse last night and she vomited 'black-green and oily' emesis five times, after speaking with a nurse on the phone pt then returned to ER. Pts nausea has persisted since the surgery, pt denies much of an y improvement since the surgery. Pt states she fell full 'no room for another bit' of food when she attempts to eat. Pt denies any abd pain, chest pain, or fever. Subjective/Events-last exam Pts nausea has increased since yesterday. Pt states she was doing well throughout the day and tried a liquid diet with tolerance, but around midnight last night nausea has came back and persisted. Pt then received Zofran and later Promethazine this morning. Pt denies any improvement in nausea since it started, but does endorse that nausea is not as bad as a couple days ago when she rep orted back to the ED. Pt regularly passing stool. Pt denies abd pain, chest pain, and palpitations. Review of Systems General: No Chills, No Night Sweats Pulmonary: No Dyspnea, No Cough, No Pleuritic Chest Pain Cardiovascular: No: Chest Pain, Palpitations, Edema Gastrointestinal: Nausea, Diarrhea; No: Vomiting, Abdominal Pain, Constipation Genitourinary: No Dysuria, No Incontinence Objective Exam Vital Signs Vital Signs Date Time Temp Pulse Resp B/P (MAP) Pulse Ox O2 Delivery O2 Flow Rate FiO2 09/13/20 07:45 36.5 102 22 130/65 (86) 94 Room Air Capillary Refill : Less Than 3 Seconds General Appearance: No Apparent Distress, Chronically ill HEENT: PERRL/EOMI, Normal ENT Inspection, Moist Mucous Membranes Neck: Full Range of Motion, Normal Inspection Respiratory: Lungs Clear, Normal Breath Sounds, No Accessory Muscle Use, No Respiratory Distress Cardiovascular: Regular Rate, Rhythm, No Edema, No JVD, No Murmur, Normal Peripheral Pulses Gastrointestinal: Normal Bowel Sounds, Non Tender, Soft, Other (abd sx incision sites c/d/i ) Rectal: Deferred Extremity: Normal Capillary Refill, Non Tender, No Calf Tenderness, No Pedal Edema Neurologic/Psychiatric: Alert, Oriented x3, Normal Mood/Affect, station captain II-XII Norm as Tested Results/Procedures Lab Laboratory Tests 09/12/20 09:07 09/13/20 06:40 Patient resulted labs reviewed. Assessment/Plan Assessment and Plan Assess & Plan/Chief Complaint Post-op ileus likely causing intractable nausea and vomiting. Continue fluid replacement. zofran and promethazine given this morning. Pt went all yesterday without either. Continue scopolamine patch. Pt on liquid diet, let surgery advance diet at there discretion. Encourage ambulation, consulted PT/OT. Hypokalemia Likely contributes to post-op ileus and nausea. Moderately decreased at 2.8 today. Add 120mEQ K I.V. Post-surgical anemia, normocytic. Current Hgb status similiar to values from last week. Follow serially, no intervention required. Colorectal adenocarcinoma Post resection via subtotal colectomy; this sx is source of post-op ileus. [place] Ca, post resection via b/l mastectomy. Gastric Ulcer HTN Hypercholesterolemia Hold home medication. I.V. pantoprazole. DVT prophylaxis lovenox 40mg Prerenal DELMI Resolved. Clinical Quality Measures DVT/VTE Risk/Contraindication: Risk Factor Score Per Nursin RFS Level Per Nursing on Admit: 4+=Very High MAEVE GOODEN MD 09/13/20 1645: Subjective HPI/CC On Admission Date Seen by Provider: Sep 13, 2020 Time Seen by Provider: 16:42 Assessment/Plan Assessment and Plan Assess & Plan/Chief Complaint Patient a little worse overnight with nausea but doing better now. Will continue to take it slow with oral intake and continue antinausea regimen. Supervisory-Addendum Brief Verification & Attestation Participated in pt care: history, MDM, physical Personally performed: exam, history, MDM, supervision of care Care discussed with: Medical Student Procedures: n/a Results interpretation: Verified all documentation Verification and Attestation of Medical Student E/M Service A medical student performed and documented this service in my presence. I reviewed and verified all information documented by the medical student and made modifications to such information, when appropriate. I personally performed the physical exam and medical decision making. Maeve Gooden, Sep 13, 2020,16:43 ROBERT TYLER MED STUDENT Sep 13, 2020 08:49 MAEVE GOODEN MD Sep 13, 2020 16:45
[2020-09-13] MEDS: PANTOPRAZOLE 40 MG (PROTONIX) VIAL IV SCH (08:58)
[2020-09-13] MEDS: POTASSIUM CL 10MEQ/50ML IVPB 50 ML IV SCH ×5 (08:58→13:25)
[2020-09-13 11:52] VITALS: BP 133/79
--- NOTE | 2020-09-13 13:55 | Physician Query Clarification ---
"Physician Query-General Query to Physician: The medical record reflects the following clinical scenario: History/Risk factors: Laparoscopic hand assisted Subtotal Colectomy 09/06, General Anesthesia Clinical Findings: Intractable N/V, SBO could not be ruled out on Abd series Treatment: NPO, NG tube, Zofran, IV fluids, Surgical consult Question: Can you further specify Post-op ileus per the clinical indicators above? Please document response in the Progress Notes or Discharge Summary. 1. Is the Ileus due to/related to/complication of the previous surgery/colectomy? 2. Post-operative phase Ileus (not related to or considered a complication to the previous procedure) 3. Other, with explanation of clinical findings 4. Clinically undetermined, no explanation for clinical findings Please remember a lack of response to the above will prompt a phone page by CDI/coding staff. In responding to this query, please exercise your independent professional judgment. The purpose of this communication is to more accurately reflect the complexity of your patients condition. The fact that a question is asked does not imply that any particular answer is desired or expected. The medical record reflects the following clinical scenario: Juju Moreno, MSN, RN RN Specialist-Clinical Doc Improvement CD -Health Info Mgmt Operations [address] [facility] t: [phone] | f: [phone] If you are unable to reach me at my extension, I may be working from home. Eva malin contact me at [phone] PHYSICIAN RESPONSE: Based on the clinical findings in the record, please respond to the query above on this document as an addendum. Physician Response: Physician Response 2 If you have questions please contact: Procurement Manager: Ext: Thank you for your time and cooperation. Clinical Hair Or Beauty Salon Manager/Procurement Manager This is a permanent part of the medical record JUJU MORENO Sep 13, 2020 13:55 CAROLINA CASAS DO Oct 05, 2020 20:12"
[2020-09-13] MEDS ORDERED: MAGNESIUM 1 GM/100 ML IVPB 200 ML IV ONE (14:31)
[2020-09-13] MEDS: MAGNESIUM 1 GM/100 ML IVPB 100 ML IV SCH ×2 (14:43→16:01)
--- NOTE | 2020-09-13 15:14 | Progress Note - Surgery ---
CAMILLE SNIDER MED STUDENT 09/13/20 1514: Subjective Date Seen by a Provider: Sep 13, 2020 Time Seen by a Provider: 07:15 Subjective/Events-last exam Pt states she is doing well, but having some nausea. No vomiting or pain. Continues to have liquid BM's. Able to have some bites of food. States she has been walking and using IS today. Potassium is 2.8 today. Objective Exam Vital Signs Date Time Temp Pulse Resp B/P (MAP) Pulse Ox O2 Delivery O2 Flow Rate FiO2 09/13/20 11:52 36.7 98 20 133/79 (97) 95 Room Air 09/13/20 08:00 Room Air 09/13/20 07:45 36.5 102 22 130/65 (86) 94 Room Air 09/13/20 04:20 37.0 93 18 144/69 (94) 95 Room Air 09/13/20 00:36 36.3 98 20 139/77 (97) 96 Room Air 09/12/20 21:00 36.4 84 20 132/89 (103) 97 Room Air 09/12/20 19:45 Room Air 09/12/20 16:36 36.6 76 18 132/66 (88) 95 Room Air I & O 09/13/20 07:00 Intake Total 1970 ml Output Total 725 ml Balance 1245 ml Capillary Refill : Less Than 3 SecondsLess Than 3 Seconds General Appearance: No Apparent Distress, Chronically ill HEENT: PERRL/EOMI, Normal ENT Inspection Neck: Normal Inspection, Supple Respiratory: Chest Non Tender, No Accessory Muscle Use, No Respiratory Distress Cardiovascular: Regular Rate, Rhythm, No Edema Gastrointestinal: non tender, soft; No guarding, No rebound; other (incision c/d/i) Extremity: Non Tender, No Calf Tenderness, No Pedal Edema Neurologic/Psychiatric: Alert, Oriented x3, No Motor/Sensory Deficits, Normal Mood/Affect Skin: Normal Color, Warm/Dry Lymphatic: No Adenopathy Results Lab Laboratory Tests 09/13/20 06:40: White Blood Count 7.6, Red Blood Count 3.16L, Hemoglobin 9.4L, Hematocrit 29L, Mean Corpuscular Volume 92, Mean Corpuscular Hemoglobin 30, Mean Corpuscular Hemoglobin Concent 32, Red Cell Distribution Width 15.9H, Platelet Count 307, Mean Platelet Volume 8.8L, Sodium Level 140, Potassium Level 2.8L, Chloride Level 105, Carbon Dioxide Level 24, Anion Gap 11, Blood Urea Nitrogen 8, Creatinine 0.78, Estimat Glomerular Filtration Rate > 60, BUN/Creatinine Ratio 10, Glucose Level 102, Calcium Level 8.0L, Magnesium Level 1.8 Assessment/Plan Assessment/Plan Assessment/Plan s/p subtotal colectomy colon cancer N/V post-op ileus Hypokalemia IV fluids replace potassium monitor labs pain control advance to soft diet encouraged ambulation and using incentive spirometer Clinical Quality Measures DVT/VTE Risk/Contraindication: Risk Factor Score Per Nursin RFS Level Per Nursing on Admit: 4+=Very High MACIE PATELTT Arleen DO 09/13/202226: Subjective Subjective/Events-last exam Some nausea today no vomiting. Her pain is under control. Patient having better bowel movements and passing flatus. Patient tolerating liquids but wants food. Potassium decreased and being replaced. Denies any fever sweats chills shortness of breath or chest pain. Objective Exam General Appearance: No Apparent Distress, Chronically ill HEENT: PERRL/EOMI, Normal ENT Inspection Respiratory: Chest Non Tender, No Accessory Muscle Use, No Respiratory Distress Cardiovascular: Regular Rate, Rhythm, No Edema Gastrointestinal: non tender, soft, other (incision c/d/i, minimal distention) Extremity: Non Tender, No Calf Tenderness Neurologic/Psychiatric: Alert, Oriented x3, No Motor/Sensory Deficits, Normal Mood/Affect Skin: Normal Color, Warm/Dry Lymphatic: No Adenopathy Assessment/Plan Assessment/Plan Assessment/Plan s/p subtotal colectomy colon cancer N/V post-op ileus Hypokalemia Potassium being replaced. Continue to follow and replace as needed Patient wanting food we will try a soft diet Patient to continue increasing activity and using incentive spirometer as she is doing. Supervisory-Addendum Brief Verification & Attestation Participated in pt care: history, MDM, physical Personally performed: exam, history, MDM, supervision of care Care discussed with: Medical Student Procedures: n/a Results interpretation: Verified all documentation Verification and Attestation of Medical Student E/M Service A medical student performed and documented this service in my presence. I reviewed and verified all information documented by the medical student and made modifications to such information, when appropriate. I personally performed the physical exam and medical decision making. Carolina Patel, Sep 13, 2020,22:26 CAMILLE SNIDER MED STUDENT Sep 13, 2020 15:14 CAROLINA PATEL DO Sep 13, 2020 22:27
[2020-09-13 16:34] VITALS: BP 129/73
[2020-09-13 20:16] VITALS: BP 138/96
[2020-09-14] VITALS: BP 135/71
[2020-09-14] MEDS: LACTATED RINGERS 1,000 ML IV SCH ×2 (00:59→09:05)
[2020-09-14 03:32] VITALS: BP 136/65
[2020-09-14 05:57] LABS: CHLORIDE 102 MMOL/L (98-107); SODIUM 138 MMOL/L (135-145)
[2020-09-14 05:58] LABS: CALCIUM 7.7 MG/DL (8.5-10.1)
[2020-09-14 05:59] LABS: GLUCOSE 102 MG/DL (70-105)
[2020-09-14 06:00] LABS: CARBON DIOXIDE 25 MMOL/L (21-32)
[2020-09-14] MEDS ORDERED: KCL 20 MEQ TAB (K-DUR) PO SCH (06:00)
[2020-09-14] MEDS ORDERED: MAGNESIUM 1 GM/100 ML IVPB 100 ML IV SCH (06:00)
[2020-09-14] MEDS ORDERED: POTASSIUM CL 10MEQ/50ML IVPB 50 ML IV SCH (06:00)
[2020-09-14 06:03] LABS: CREATININE SERUM 0.76 MG/DL (0.60-1.30); GFR ESTIMATED > 60
[2020-09-14 06:04] LABS: BUN/CREATININE RATIO 7
[2020-09-14 06:05] LABS: MAGNESIUM 2.1 MG/DL (1.6-2.4)
[2020-09-14] MEDS: POTASSIUM CL 10MEQ/50ML IVPB 50 ML IV SCH ×5 (06:33→10:17)
--- NOTE | 2020-09-14 07:41 | Progress Note - Surgery ---
CAMILLE SNIDER MED STUDENT 09/14/20 0741: Subjective Date Seen by a Provider: Sep 14, 2020 Time Seen by a Provider: 06:50 Subjective/Events-last exam Pt doing well today, no N/V. Objective Exam Vital Signs Date Time Temp Pulse Resp B/P (MAP) Pulse Ox O2 Delivery O2 Flow Rate FiO2 09/14/20 03:32 36.6 94 19 136/65 (88) 98 Room Air 09/14/20 00:00 36.5 94 19 135/71 (92) 92 Room Air 09/13/20 20:16 36.4 94 18 138/96 (110) 94 Room Air 09/13/20 20:00 Room Air 09/13/20 16:34 36.6 93 22 129/73 (91) 94 Room Air 09/13/20 11:52 36.7 98 20 133/79 (97) 95 Room Air 09/13/20 08:00 Room Air 09/13/20 07:45 36.5 102 22 130/65 (86) 94 Room Air I & O 09/14/20 07:00 Intake Total 2370 ml Output Total 500 ml Balance 1870 ml Capillary Refill : Less Than 3 SecondsLess Than 3 Seconds General Appearance: No Apparent Distress, Chronically ill HEENT: PERRL/EOMI, Normal ENT Inspection Neck: Normal Inspection, Supple Respiratory: Chest Non Tender, No Accessory Muscle Use, No Respiratory Distress Cardiovascular: Regular Rate, Rhythm, No Edema Gastrointestinal: non tender, soft, other (incision c/d/i, minimal distention) Extremity: Non Tender, No Calf Tenderness Neurologic/Psychiatric: Alert, Oriented x3, No Motor/Sensory Deficits, Normal Mood/Affect Skin: Normal Color, Warm/Dry Lymphatic: No Adenopathy Results Lab Laboratory Tests 09/13/20 16:25: Potassium Level 3.3L 09/14/20 05:20: Potassium Level 3.0L, Sodium Level 138, Chloride Level 102, Carbon Dioxide Level 25, Anion Gap 11, Blood Urea Nitrogen 5L, Creatinine 0.76, Estimat Glomerular Filtration Rate > 60, BUN/Creatinine Ratio 7, Glucose Level 102, Calcium Level 7.7L, Magnesium Level 2.1 Assessment/Plan Assessment/Plan Assessment/Plan s/p subtotal colectomy colon cancer N/V post-op ileus Hypokalemia Potassium being replaced. Continue to follow and replace as needed Patient wanting food we will try a soft diet Patient to continue increasing activity and using incentive spirometer as she is doing. Clinical Quality Measures DVT/VTE Risk/Contraindication: Risk Factor Score Per Nursin RFS Level Per Nursing on Admit: 4+=Very High CAROLINA PATEL DO 09/14/20 1419: Subjective Subjective/Events-last exam Patient no n/v. Tolerating diet. Multiple bowel movements. Wanting to go home. Denies fever sweats chills shortness of breath or chest pain. Objective Exam General Appearance: No Apparent Distress, Chronically ill HEENT: PERRL/EOMI, Normal ENT Inspection Neck: Normal Inspection, Supple Respiratory: Chest Non Tender, No Accessory Muscle Use, No Respiratory Distress Cardiovascular: Regular Rate, Rhythm, No Edema Gastrointestinal: non tender, soft, other (incision c/d/i, minimal distention) Extremity: Non Tender, No Calf Tenderness Neurologic/Psychiatric: Alert, Oriented x3, No Motor/Sensory Deficits, Normal Mood/Affect Skin: Normal Color, Warm/Dry Lymphatic: No Adenopathy Assessment/Plan Assessment/Plan Assessment/Plan s/p subtotal colectomy colon cancer N/V post-op ileus Hypokalemia Potassium being replaced. Continue to follow and replace as needed, can follow up labs outpatient, diet as tolerates Patient to continue increasing activity and using incentive spirometer as she is doing. Will dc home any issues be seen at that time. Supervisory-Addendum Brief Verification & Attestation Participated in pt care: history, MDM, physical Personally performed: exam, history, MDM, supervision of care Care discussed with: Medical Student Procedures: n/a Results interpretation: Verified all documentation Verification and Attestation of Medical Student E/M Service A medical student performed and documented this service in my presence. I reviewed and verified all information documented by the medical student and made modifications to such information, when appropriate. I personally performed the physical exam and medical decision making. Carolina Patel, Sep 14, 2020,14:19 CAMILLE SNIDER MED STUDENT Sep 14, 2020 07:41 CAROLINA PATEL DO Sep 14, 2020 14:19
[2020-09-14 08:04] VITALS: BP_SYST 115; BP_SYST 136; BP_DIAS 60; BP_DIAS 73
[2020-09-14] MEDS: PANTOPRAZOLE 40 MG (PROTONIX) VIAL IV SCH (09:05)
--- NOTE | 2020-09-14 09:08 | Progress Note - Hospitalist ---
ROBERT TYLER MED STUDENT 09/14/20 0908: Subjective HPI/CC On Admission Time Seen by Provider: 08:25 Medicine was asked to consult for medical management on Rossana Hallman, a 70y/o F with PMH of colorectal ca r/c, breast ca r/c, HTN, hypercholesterolemia, and gastric ulcer. Pt presented to the ER this morning with nausea and vomiting. Pt was discharged yesterday after being monitored post sub-total colectomy, performed by Dr Patel, for resection of colorectal adenocarcinoma. Pt returned to ER this morning after having persistent nausea, vomiting and dehydration. Pt looked more nauseous than when I last spoke to her two days ago, Pt states nausea got a little worse last night and she vomited 'black-green and oily' emesis five times, after speaking with a nurse on the phone pt then returned to ER. Pts nausea has persisted since the surgery, pt denies much of any improvement since the surgery. Pt states she fell full 'no room for another bit' of food when she attempts to eat. Pt denies any abd pain, chest pain, or fever. Subjective/Events-last exam Pt denies any nausea since yesterday around 18:00. Pt tolerate liquid diet last night without postprandial pain or nausea, and ate all her eggs this morning without aggrevation of symptoms. Pt denies abd pain, chest pain or calf pain. Review of Systems General: No Chills, No Night Sweats Pulmonary: No Dyspnea, No Cough, No Pleuritic Chest Pain Cardiovascular: No: Chest Pain, Palpitations Gastrointestinal: Diarrhea; No: Nausea, Vomiting, Abdominal Pain Genitourinary: No Dysuria, No Incontinence Objective Exam Vital Signs Vital Signs Date Time Temp Pulse Resp B/P (MAP) Pulse Ox O2 Delivery O2 Flow Rate FiO2 09/14/20 08:04 36.6 96 18 115/60 (78) 93 Room Air Capillary Refill : Less Than 3 SecondsLess Than 3 Seconds General Appearance: No Apparent Distress, Chronically ill HEENT: PERRL/EOMI, Normal ENT Inspection, Moist Mucous Membranes Neck: Full Range of Motion, Normal Inspection Respiratory: Lungs Clear, Normal Breath Sounds, No Accessory Muscle Use, No Res piratory Distress Cardiovascular: Regular Rate, Rhythm, No Gallop, No Murmur, Normal Peripheral Pulses Gastrointestinal: Normal Bowel Sounds, Non Tender, Soft Rectal: Deferred Extremity: Normal Capillary Refill, No Calf Tenderness, No Pedal Edema Neurologic/Psychiatric: Alert, Oriented x3, Normal Mood/Affect, partition making machine operator II-XII Norm as Tested Skin: Normal Color, Warm/Dry Results/Procedures Lab Laboratory Tests 09/13/20 16:25 09/14/20 05:20 Patient resulted labs reviewed. Assessment/Plan Assessment and Plan Assess & Plan/Chief Complaint Post-op ileus likely causing intractable N/V due to sub-total colecotmy. Continue fluid replacement. zofran and promethazine has not been given since yesterday morning. Replace scopolamine patch. Pt on softs diet, let surgery advance diet at there discretion. Encourage ambulation Pt appears medically stable and ready for discharge. Hypokalemia Likely contributes to post-op ileus and nausea. Moderately decreased at 3.0 today. Add 100mEQ K I.V. Post-surgical anemia, normocytic. Current Hgb status similiar to values from last week. Follow serially, no intervention required. Colorectal adenocarcinoma Post resection via subtotal colectomy; this sx is source of post-op ileus. Brest Ca, post resection via b/l mastectomy. Gastric Ulcer HTN Hypercholesterolemia Hold home medication. I.V. pantoprazole. DVT prophylaxis lovenox 40mg Prerenal DELMI Resolved. Clinical Quality Measures DVT/VTE Risk/Contraindication: Risk Factor Score Per Nursin RFS Level Per Nursing on Admit: 4+=Very High MAEVE GOODEN MD 09/14/20 1429: Assessment/Plan Assessment and Plan Assess & Plan/Chief Complaint Patient is doing much better. No further nausea since last night. Doing well with current diet. Hopeful that she will be able to DC home today. Will sign off. Supervisory-Addendum Brief Verification & Attestation Participated in pt care: history, MDM, physical Personally performed: exam, history, MDM, supervision of care Care discussed with: Medical Student Procedures: n/a Results interpretation: Verified all documentation Verification and Attestation of Medical Student E/M Service A medical student performed and documented this service in my presence. I reviewed and verified all information documented by the medical student and made modifications to such information, when appropriate. I personally performed the physical exam and medical decision making. Maeve Gooden, Sep 14, 2020,14:28 ROBERT TYLER MED STUDENT Sep 14, 2020 09:08 MAEVE GOODEN MD Sep 14, 2020 14:29
[2020-09-14] MEDS ORDERED: SCOPOLAMINE PATCH REMOVAL TP ONE (09:45)
--- NOTE | 2020-09-14 11:20 | NUR ---
Pt feels much better and states her nausea has definitely lessened. She is pleased with plan to be discharged home today and has no post- hospital needs.pt's will be her primary caregiver.
[2020-09-14] MEDS ORDERED: SCOP1PAT11 TD (14:28)
[2020-09-14] MEDS ORDERED: POTA20TA8 PO (14:28)
--- NOTE | 2020-09-14 15:04 | Discharge Inst-Simple/Standard ---
Discharge Inst-Standard Discharge Medications New, Converted or Re-Newed RX: Transmitted to Pharmacy Patient Instructions/Follow Up Plan of Care/Instructions/FU: 1-2 weeks Jorge Have BMP drawn with in the next week to check electrolytes. Call office if need t order, or have drawn with cancer center. Activity as Tolerated: No Discharge Diet: Soft Diet Other Inst to Patient Follow up Appt: Make appointment for 1-2 week. Instructions: No lifting greater than 10 pounds. No strenuous activity. May shower in 24 hours, no tub bath or soaking. Use incentive spirometer at home as directed. No Smoking Skin/Wound Care: Keep incisions clean and dry. Symptoms to Report: Appetite Changes, Extremity Discoloration, Numbness/Tingling, Swelling Increased, Bleeding Excessive, Eyesight Changes, Pain Increased, Urine Color Change, Constipation(Persistent), Fever over 101 degree F, Pain/Pressure in chest, Urinating Difficulty, Cough Up/Vomit Blood, Heart Beat Irreg/Pounding, Pain/Pressure in jaw, Vaginal Bleeding Increase, Cramps in feet or legs, Lightheadedness, Pain/Pressure in shoulder, Diarrhea(Persistent), Memory Changes Suddenly, Questions/Concerns, Weight gain consecutive days, Dizziness/Fainting, Nausea/Vomiting, Shortness of Breath, Weight gain over 2 pounds If questions or concerns contact your physician Or seek help at emergency department. CAROLINA CASAS DO Sep 14, 2020 15:04
[2020-09-14 15:38] VITALS: BP 115/60
== END 2020-09-14 15:39 | disposition home or self-care (01) | DRG 390 ==
LOC: EDUNIT# 06:01 → ER 06:03 → 4TH 08:10
PROVIDERS: ADMIT Surgery; ATTEND Surgery
PROC: 0D9670Z Drainage of Stomach with Drainage Device, Via Natural or Artificial Opening (ICD-10-PCS; principal; 2020-09-10)
DX: K56.7 Ileus, unspecified (principal); E86.0 Dehydration; I10 Essential (primary) hypertension; E78.00 Pure hypercholesterolemia, unspecified; E78.5 Hyperlipidemia, unspecified; K25.9 Gastric ulcer, unspecified as acute or chronic, without hemorrhage or perforation; K21.00 Gastro-esophageal reflux disease with esophagitis, without bleeding; E87.6 Hypokalemia; D50.9 Iron deficiency anemia, unspecified; M19.041 Primary osteoarthritis, right hand; M19.042 Primary osteoarthritis, left hand; M19.071 Primary osteoarthritis, right ankle and foot; M19.072 Primary osteoarthritis, left ankle and foot; F41.9 Anxiety disorder, unspecified; J30.2 Other seasonal allergic rhinitis; G43.909 Migraine, unspecified, not intractable, without status migrainosus; Z85.3 Personal history of malignant neoplasm of breast; Z85.038 Personal history of other malignant neoplasm of large intestine; Z92.21 Personal history of antineoplastic chemotherapy; Z90.49 Acquired absence of other specified parts of digestive tract; Z90.13 Acquired absence of bilateral breasts and nipples; Z92.3 Personal history of irradiation
CPT/HCPCS: 36415; 74022; 80048; 80053; 83735; 84132; 85025; 85027; 96361; 96365; 96375

== ENCOUNTER → 2020-10-04 | Outpatient (CLI) | payer MEDICARE, OTHER ==
[~2020-10-04] MED LIST changes: +POTA20TA8 PO; +SCOP1PAT11 TD
== END ==
LOC: CARD 10:59
PROVIDERS: ATTEND Internal Medicine Hematology & Oncology
DX: C50.219 Malignant neoplasm of upper-inner quadrant of unspecified female breast (principal); I08.1 Rheumatic disorders of both mitral and tricuspid valves; Z79.899 Other long term (current) drug therapy
CPT/HCPCS: 93306

== ENCOUNTER 2020-10-22 08:46 | Outpatient (RCR) | payer MEDICARE, OTHER ==
[2020-09-24 09:23] LABS: BASOPHILS # (AUTO) 0.1 10^3/uL (0.0-0.1); BASOPHILS % (AUTO) 1 % (0-10); EOSINOPHILS # (AUTO) 0.6 10^3/uL (0.0-0.3); EOSINOPHILS % (AUTO) 8 % (0-10); HEMATOCRIT 33 % (35-52); HEMOGLOBIN 10.7 g/dL (11.5-16.0); LYMPHOCYTES # (AUTO) 1.5 10^3/uL (1.0-4.0); LYMPHOCYTES % (AUTO) 21 % (12-44); MEAN CORPUSCULAR HEMOGLOBIN 29 pg (25-34); MEAN CORPUSCULAR HGB CONC 32 g/dL (32-36); MEAN CORPUSCULAR VOLUME 91 fL (80-99); MEAN PLATELET VOLUME 8.7 fL (9.0-12.2); MONOCYTES # (AUTO) 0.5 10^3/uL (0.0-1.0); MONOCYTES % (AUTO) 6 % (0-12); NEUTROPHILS # (AUTO) 4.4 10^3/uL (1.8-7.8); NEUTROPHILS % (AUTO) 63 % (42-75); PLATELET COUNT 372 10^3/uL (130-400)
[2020-09-24 09:43] LABS: CALCIUM 8.7 MG/DL (8.5-10.1); CREATININE SERUM 0.97 MG/DL (0.60-1.30); POTASSIUM 3.7 MMOL/L (3.6-5.0)
[2020-09-24 10:34] LABS: MAGNESIUM 1.5 MG/DL (1.6-2.4)
[2020-10-02 14:16] LABS: BASOPHILS # (AUTO) 0.1 10^3/uL (0.0-0.1); BASOPHILS % (AUTO) 2 % (0-10); EOSINOPHILS # (AUTO) 0.7 10^3/uL (0.0-0.3); EOSINOPHILS % (AUTO) 10 % (0-10); HEMATOCRIT 33 % (35-52); HEMOGLOBIN 10.6 g/dL (11.5-16.0); LYMPHOCYTES # (AUTO) 1.7 10^3/uL (1.0-4.0); LYMPHOCYTES % (AUTO) 23 % (12-44); MEAN CORPUSCULAR HEMOGLOBIN 29 pg (25-34); MEAN CORPUSCULAR HGB CONC 32 g/dL (32-36); MEAN CORPUSCULAR VOLUME 90 fL (80-99); MEAN PLATELET VOLUME 8.8 fL (9.0-12.2); MONOCYTES # (AUTO) 0.5 10^3/uL (0.0-1.0); MONOCYTES % (AUTO) 7 % (0-12); NEUTROPHILS # (AUTO) 4.1 10^3/uL (1.8-7.8); NEUTROPHILS % (AUTO) 58 % (42-75); PLATELET COUNT 325 10^3/uL (130-400); WHITE BLOOD COUNT 7.1 10^3/uL (4.3-11.0)
[2020-10-02 14:32] LABS: ALBUMIN 3.8 GM/DL (3.2-4.5)
[2020-10-02 14:33] LABS: POTASSIUM 3.6 MMOL/L (3.6-5.0)
[2020-10-02 14:34] LABS: CALCIUM 8.2 MG/DL (8.5-10.1)
[2020-10-02 14:37] LABS: BILIRUBIN,TOTAL 0.4 MG/DL (0.1-1.0)
[2020-10-02 14:39] LABS: CREATININE SERUM 1.03 MG/DL (0.60-1.30)
[~2020-10-22 08:46] MED LIST changes: +NS IV 1000 ML (CANCER CTR) IV SCH; +NS IV SCH; +TRASTUZUMAB ANNS IV SCH
[2020-10-29 09:05] LABS: BASOPHILS # (AUTO) 0.1 10^3/uL (0.0-0.1); BASOPHILS % (AUTO) 1 % (0-10); EOSINOPHILS # (AUTO) 0.2 10^3/uL (0.0-0.3); EOSINOPHILS % (AUTO) 3 % (0-10); HEMATOCRIT 35 % (35-52); LYMPHOCYTES # (AUTO) 1.6 10^3/uL (1.0-4.0); LYMPHOCYTES % (AUTO) 24 % (12-44); MEAN CORPUSCULAR HEMOGLOBIN 28 pg (25-34); MEAN CORPUSCULAR HGB CONC 31 g/dL (32-36); MEAN CORPUSCULAR VOLUME 89 fL (80-99); MONOCYTES # (AUTO) 0.5 10^3/uL (0.0-1.0); MONOCYTES % (AUTO) 7 % (0-12); NEUTROPHILS # (AUTO) 4.3 10^3/uL (1.8-7.8); NEUTROPHILS % (AUTO) 64 % (42-75); PLATELET COUNT 334 10^3/uL (130-400); WHITE BLOOD COUNT 6.8 10^3/uL (4.3-11.0)
[2020-10-29 09:17] LABS: ALBUMIN 3.9 GM/DL (3.2-4.5); BILIRUBIN,TOTAL 0.3 MG/DL (0.1-1.0); CALCIUM 8.7 MG/DL (8.5-10.1); CREATININE SERUM 1.01 MG/DL (0.60-1.30); POTASSIUM 4.1 MMOL/L (3.6-5.0); TOTAL PROTEIN 7.2 GM/DL (6.4-8.2)
== END 2020-10-29 08:41 | disposition home or self-care (01) ==
LOC: ONC 08:46
PROVIDERS: ATTEND Internal Medicine Hematology & Oncology
DX: Z51.11 Encounter for antineoplastic chemotherapy (principal); C50.211 Malignant neoplasm of upper-inner quadrant of right female breast; I12.9 Hypertensive chronic kidney disease with stage 1 through stage 4 chronic kidney disease, or unspecified chronic kidney disease; N18.30 Chronic kidney disease, stage 3 unspecified; E78.00 Pure hypercholesterolemia, unspecified; Z86.000 Personal history of in-situ neoplasm of breast; Z79.899 Other long term (current) drug therapy; Z90.12 Acquired absence of left breast and nipple; Z92.3 Personal history of irradiation
CPT/HCPCS: 36591; 80048; 80053; 83735; 85025; 96413

== ENCOUNTER 2020-12-24 09:40 | Outpatient (RCR) | payer MEDICARE, OTHER ==
[2020-11-26 09:15] LABS: BASOPHILS # (AUTO) 0.1 10^3/uL (0.0-0.1); BASOPHILS % (AUTO) 1 % (0-10); EOSINOPHILS # (AUTO) 0.2 10^3/uL (0.0-0.3); EOSINOPHILS % (AUTO) 3 % (0-10); HEMATOCRIT 37 % (35-52); HEMOGLOBIN 11.6 g/dL (11.5-16.0); LYMPHOCYTES # (AUTO) 1.4 10^3/uL (1.0-4.0); LYMPHOCYTES % (AUTO) 22 % (12-44); MEAN CORPUSCULAR HEMOGLOBIN 27 pg (25-34); MEAN CORPUSCULAR HGB CONC 32 g/dL (32-36); MEAN CORPUSCULAR VOLUME 87 fL (80-99); MEAN PLATELET VOLUME 8.8 fL (9.0-12.2); MONOCYTES # (AUTO) 0.4 10^3/uL (0.0-1.0); MONOCYTES % (AUTO) 7 % (0-12); NEUTROPHILS # (AUTO) 4.3 10^3/uL (1.8-7.8); NEUTROPHILS % (AUTO) 67 % (42-75); PLATELET COUNT 331 10^3/uL (130-400); WHITE BLOOD COUNT 6.3 10^3/uL (4.3-11.0)
[2020-11-26 09:32] LABS: ALBUMIN 3.8 GM/DL (3.2-4.5); BILIRUBIN,TOTAL 0.4 MG/DL (0.1-1.0); CALCIUM 8.7 MG/DL (8.5-10.1); CREATININE SERUM 1.09 MG/DL (0.60-1.30); POTASSIUM 3.8 MMOL/L (3.6-5.0)
[2020-12-24 09:55] LABS: BASOPHILS # (AUTO) 0.1 10^3/uL (0.0-0.1); BASOPHILS % (AUTO) 2 % (0-10); EOSINOPHILS # (AUTO) 0.2 10^3/uL (0.0-0.3); EOSINOPHILS % (AUTO) 3 % (0-10); HEMATOCRIT 37 % (35-52); HEMOGLOBIN 11.8 g/dL (11.5-16.0); LYMPHOCYTES # (AUTO) 1.6 10^3/uL (1.0-4.0); LYMPHOCYTES % (AUTO) 26 % (12-44); MEAN CORPUSCULAR HEMOGLOBIN 27 pg (25-34); MEAN CORPUSCULAR HGB CONC 32 g/dL (32-36); MEAN CORPUSCULAR VOLUME 85 fL (80-99); MEAN PLATELET VOLUME 8.9 fL (9.0-12.2); MONOCYTES # (AUTO) 0.4 10^3/uL (0.0-1.0); MONOCYTES % (AUTO) 6 % (0-12); NEUTROPHILS # (AUTO) 3.9 10^3/uL (1.8-7.8); NEUTROPHILS % (AUTO) 63 % (42-75); PLATELET COUNT 307 10^3/uL (130-400); WHITE BLOOD COUNT 6.2 10^3/uL (4.3-11.0)
[2020-12-24 10:14] LABS: ALBUMIN 3.8 GM/DL (3.2-4.5); BILIRUBIN,TOTAL 0.3 MG/DL (0.1-1.0); CALCIUM 8.7 MG/DL (8.5-10.1); POTASSIUM 3.9 MMOL/L (3.6-5.0)
== END 2021-01-27 | disposition home or self-care (01) ==
LOC: ONC 09:40
PROVIDERS: ATTEND Internal Medicine Hematology & Oncology
DX: Z51.11 Encounter for antineoplastic chemotherapy (principal); C50.211 Malignant neoplasm of upper-inner quadrant of right female breast; C18.2 Malignant neoplasm of ascending colon; C18.7 Malignant neoplasm of sigmoid colon; I12.9 Hypertensive chronic kidney disease with stage 1 through stage 4 chronic kidney disease, or unspecified chronic kidney disease; N18.30 Chronic kidney disease, stage 3 unspecified; E78.00 Pure hypercholesterolemia, unspecified; Z86.000 Personal history of in-situ neoplasm of breast; Z79.899 Other long term (current) drug therapy; Z90.12 Acquired absence of left breast and nipple; Z92.3 Personal history of irradiation
CPT/HCPCS: 96413; G0463; 36591; 80053; 85025; 88381

== ENCOUNTER 2021-03-18 08:47 | Outpatient (RCR) | payer MEDICARE, OTHER ==
[~2021-03-18 08:47] MED LIST changes: -NS IV 1000 ML (CANCER CTR) IV SCH; -NS IV SCH; -TRASTUZUMAB ANNS IV SCH
[2021-03-18 09:10] LABS: BASOPHILS # (AUTO) 0.1 10^3/uL (0.0-0.1); BASOPHILS % (AUTO) 2 % (0-10); EOSINOPHILS # (AUTO) 0.3 10^3/uL (0.0-0.3); EOSINOPHILS % (AUTO) 5 % (0-10); HEMATOCRIT 37 % (35-52); LYMPHOCYTES # (AUTO) 1.5 10^3/uL (1.0-4.0); LYMPHOCYTES % (AUTO) 24 % (12-44); MEAN CORPUSCULAR HEMOGLOBIN 28 pg (25-34); MEAN CORPUSCULAR HGB CONC 33 g/dL (32-36); MEAN CORPUSCULAR VOLUME 86 fL (80-99); MEAN PLATELET VOLUME 8.7 fL (9.0-12.2); MONOCYTES # (AUTO) 0.5 10^3/uL (0.0-1.0); MONOCYTES % (AUTO) 8 % (0-12); NEUTROPHILS # (AUTO) 3.7 10^3/uL (1.8-7.8); NEUTROPHILS % (AUTO) 61 % (42-75); PLATELET COUNT 267 10^3/uL (130-400)
[2021-03-18 09:31] LABS: ALBUMIN 3.8 GM/DL (3.2-4.5); BILIRUBIN,TOTAL 0.3 MG/DL (0.1-1.0); CALCIUM 8.6 MG/DL (8.5-10.1); CREATININE SERUM 1.05 MG/DL (0.60-1.30); TOTAL PROTEIN 7.1 GM/DL (6.4-8.2)
[2021-03-18 15:29] LABS: MAGNESIUM 1.9 MG/DL (1.6-2.4)
== END 2021-06-14 14:44 | disposition home or self-care (01) ==
LOC: ONC 08:47
PROVIDERS: ATTEND Internal Medicine Hematology & Oncology
DX: Z51.11 Encounter for antineoplastic chemotherapy (principal); C50.211 Malignant neoplasm of upper-inner quadrant of right female breast; C18.2 Malignant neoplasm of ascending colon; C18.7 Malignant neoplasm of sigmoid colon; I12.9 Hypertensive chronic kidney disease with stage 1 through stage 4 chronic kidney disease, or unspecified chronic kidney disease; N18.30 Chronic kidney disease, stage 3 unspecified; E78.00 Pure hypercholesterolemia, unspecified; Z86.000 Personal history of in-situ neoplasm of breast; Z79.899 Other long term (current) drug therapy; Z90.12 Acquired absence of left breast and nipple; Z92.3 Personal history of irradiation
CPT/HCPCS: 80053; 83735; 85025; G0463; 36591

== ENCOUNTER 2021-08-20 05:42 | Outpatient (CLI) | payer MEDICARE, OTHER ==
[~2021-08-20] VITALS: Ht 172.7 cm; Wt 86.2 kg
[~2021-08-20 05:42] MED LIST changes: +SCOP1PAT10 TD; -SCOP1PAT11 TD
[2021-08-21] MEDS ORDERED: GABA300C PO (08:42)
[2021-08-21] MEDS ORDERED: ASPI-999 PO (08:42)
== END 2021-08-21 10:05 | disposition home or self-care (01) ==
LOC: PREOP 05:42
PROVIDERS: ATTEND Surgery
DX: Z01.818 Encounter for other preprocedural examination (principal)

== ENCOUNTER 2021-08-27 09:32 | Day surgery (SDC) | payer MEDICARE, OTHER ==
[~2021-08-27] VITALS: Ht 172.7 cm; Wt 86.2 kg
[~2021-08-27 09:32] MED LIST changes: +GABA300C PO
[2021-08-27] MEDS ORDERED: LACTATED RINGERS 1,000 ML IV STA (09:33)
--- NOTE | 2021-08-27 09:42 | Progress Note-Pre Operative ---
Pre-Operative Progress Note H&P Reviewed The H&P was reviewed, patient examined and no changes noted. Date Seen by Provider: Aug 27, 2021 Time Seen by Provider: 09:42 Date H&P Reviewed: Aug 27, 2021 Time H&P Reviewed: 09:42 Pre-Operative Diagnosis: hx colon cancer CAROLINA CASAS DO Aug 27, 2021 09:42
[2021-08-27] MEDS ORDERED: LACTATED RINGERS 1,000 ML IV ONE (09:46)
[2021-08-27 09:54] VITALS: BP 135/82
[2021-08-27] MEDS ORDERED: PROPOFOL INJECTION 50 ML IV ONE (10:07)
[2021-08-27] MEDS ORDERED: MIDAZOLAM 2 MG/2 ML (VERSED) VIAL ONE (10:07)
[2021-08-27 10:30] VITALS: BP 127/76
--- NOTE | 2021-08-27 10:33 | Progress Note-Post Operative ---
Post-Operative Progess Note Surgeon (s)/Motion Pictures Cartoonist (s) Surgeon CAROLINA CASAS DO Motion Pictures Cartoonist: Marquez Escudero Pre-Operative Diagnosis hx colon cancer Post-Operative Diagnosis Inflammed anastomosis Procedure & Operative Findings Date of Procedure 08/27/21 Procedure Performed/Findings Flexible sigmoidoscopy with cold bx anastomosis Anesthesia Type Managed by BACK TENDER PAPER MACHINE Estimated Blood Loss Estimated blood loss (mL): none Specimens/Packing Specimens Removed Cold bx anastomosis CAROLINA CASAS DO Aug 27, 2021 10:33
[2021-08-27 10:35] VITALS: BP_SYST 120; BP_SYST 122; BP_DIAS 65; BP_DIAS 67
--- NOTE | 2021-08-27 10:36 | Discharge Inst-Simple/Standard ---
Discharge Inst-Standard Patient Instructions/Follow Up Plan of Care/Instructions/FU: 2 weeks Activity as Tolerated: Yes Discharge Diet: Regular Diet CAROLINA CASAS DO Aug 27, 2021 10:36
[2021-08-27 10:40] VITALS: BP 122/67
--- NOTE | 2021-08-27 22:23 | OPERATIVE REPORT ---
DATE OF SERVICE: 08/27/2021 PREOPERATIVE DIAGNOSIS: History of colon cancer. POSTOPERATIVE DIAGNOSIS: Inflammation at the anastomosis. PROCEDURE: Flexible sigmoidoscopy with cold biopsy of the anastomosis. SURGEON: Carolina Patel DO ANESTHESIA: Per KEYMODULE ASSEMBLY SUPERVISOR. ESTIMATED BLOOD LOSS: None. COMPLICATIONS: None. INDICATIONS: The patient is a 71-year-old female with history of subtotal colectomy for colon cancer. She understands risks and benefits of procedure and wishes to proceed. Consent was signed in the chart. DESCRIPTION OF PROCEDURE: The patient was taken to the endoscopy suite, placed in left lateral recumbent position. Timeout was performed. Digital rectal exam was performed. There were no palpable polyps, masses or ulcerations. Scope was inserted in the rectum, advanced through the rectum into the sigmoid colon where the anastomosis was present. Some inflammation surrounding the anastomosis was present also visualizing some pj as well. Biopsy of the anastomosis was obtained. Scope was then slowly retracted back. No polyps, masses or ulcerations within the sigmoid and rectum. Scope was retroflexed noting no other pathology. Scope was returned to its normal position, slowly withdrawn until completely removed. The patient tolerated procedure well without any complications, taken to recovery room in stable condition. RECOMMENDATIONS: The patient will follow up in the office in 2 weeks to discuss pathology results. Any issues before that be seen at that time. We would recommend repeat colonoscopy in 5 years. Any issues before that be seen at that time. CC: Dr. Mei - requested, unable to deliver. Job ID: [id number] DocumentID: [id number] Dictated Date: 08/27/2021 10:39:41 Burr Machine Operator Date: 08/27/2021 18:44:37 Dictated By: ACROLINA PATEL DO
--- NOTE | 2021-08-28 09:57 | Anesthesia-General Post-Op ---
MAC Patient Condition Mental Status/LOC: Same as Preop Cardiovascular: Satisfactory Nausea/Vomiting: Absent Respiratory: Satisfactory Pain: Controlled Complications: Absent Post Op Complications Complications None Follow Up Care/Instructions Patient Instructions None needed. Anesthesiology Discharge Order Discharge Order Patient is doing well, no complaints, stable vital signs, no apparent adverse anesthesia problems. No complications reported per nursing. CATRACHO KEN CRNA Aug 28, 2021 09:57
== END 2021-08-27 11:10 | disposition home or self-care (01) ==
LOC: ENDO 09:32
PROVIDERS: ATTEND Surgery
DX: K91.89 Other postprocedural complications and disorders of digestive system (principal); K21.9 Gastro-esophageal reflux disease without esophagitis; I10 Essential (primary) hypertension; E78.5 Hyperlipidemia, unspecified; D64.9 Anemia, unspecified; F41.9 Anxiety disorder, unspecified; F32.A Depression, unspecified; Z85.038 Personal history of other malignant neoplasm of large intestine; Z79.899 Other long term (current) drug therapy; Z79.82 Long term (current) use of aspirin; Z90.49 Acquired absence of other specified parts of digestive tract; Z85.3 Personal history of malignant neoplasm of breast; Z79.02 Long term (current) use of antithrombotics/antiplatelets

== ENCOUNTER 2021-09-11 13:58 | Outpatient (RCR) | payer MEDICARE, OTHER ==
[2021-06-19 09:01] LABS: BASOPHILS # (AUTO) 0.1 10^3/uL (0.0-0.1); BASOPHILS % (AUTO) 1 % (0-10); EOSINOPHILS # (AUTO) 0.1 10^3/uL (0.0-0.3); EOSINOPHILS % (AUTO) 2 % (0-10); HEMATOCRIT 38 % (35-52); HEMOGLOBIN 12.4 g/dL (11.5-16.0); LYMPHOCYTES # (AUTO) 1.8 10^3/uL (1.0-4.0); LYMPHOCYTES % (AUTO) 26 % (12-44); MEAN CORPUSCULAR HEMOGLOBIN 29 pg (25-34); MEAN CORPUSCULAR HGB CONC 33 g/dL (32-36); MEAN CORPUSCULAR VOLUME 88 fL (80-99); MEAN PLATELET VOLUME 9.1 fL (9.0-12.2); MONOCYTES # (AUTO) 0.4 10^3/uL (0.0-1.0); MONOCYTES % (AUTO) 6 % (0-12); NEUTROPHILS # (AUTO) 4.4 10^3/uL (1.8-7.8); NEUTROPHILS % (AUTO) 65 % (42-75); PLATELET COUNT 312 10^3/uL (130-400); WHITE BLOOD COUNT 6.8 10^3/uL (4.3-11.0)
[2021-06-19 09:27] LABS: ALBUMIN 3.8 GM/DL (3.2-4.5); BILIRUBIN,TOTAL 0.4 MG/DL (0.1-1.0); CREATININE SERUM 1.05 MG/DL (0.60-1.30); MAGNESIUM 1.8 MG/DL (1.6-2.4); POTASSIUM 3.8 MMOL/L (3.6-5.0); TOTAL PROTEIN 7.3 GM/DL (6.4-8.2)
[~2021-09-11 13:58] MED LIST changes: +POTA-169 PO; -POTA20TA8 PO
[2021-09-11 14:25] LABS: BASOPHILS # (AUTO) 0.2 10^3/uL (0.0-0.1); BASOPHILS % (AUTO) 3 % (0-10); EOSINOPHILS # (AUTO) 0.5 10^3/uL (0.0-0.3); EOSINOPHILS % (AUTO) 7 % (0-10); HEMATOCRIT 39 % (35-52); HEMOGLOBIN 12.7 g/dL (11.5-16.0); LYMPHOCYTES % (AUTO) 28 % (12-44); MEAN CORPUSCULAR HEMOGLOBIN 29 pg (25-34); MEAN CORPUSCULAR HGB CONC 33 g/dL (32-36); MEAN CORPUSCULAR VOLUME 89 fL (80-99); MEAN PLATELET VOLUME 8.7 fL (9.0-12.2); MONOCYTES # (AUTO) 0.8 10^3/uL (0.0-1.0); MONOCYTES % (AUTO) 11 % (0-12); NEUTROPHILS # (AUTO) 3.8 10^3/uL (1.8-7.8); NEUTROPHILS % (AUTO) 52 % (42-75); PLATELET COUNT 300 10^3/uL (130-400); WHITE BLOOD COUNT 7.3 10^3/uL (4.3-11.0)
[2021-09-11 14:43] LABS: ALBUMIN 3.8 GM/DL (3.2-4.5); BILIRUBIN,TOTAL 0.4 MG/DL (0.1-1.0); CALCIUM 8.9 MG/DL (8.5-10.1); POTASSIUM 3.8 MMOL/L (3.6-5.0); TOTAL PROTEIN 7.9 GM/DL (6.4-8.2)
== END 2021-09-17 | disposition home or self-care (01) ==
LOC: ONC 13:58
PROVIDERS: ATTEND Internal Medicine Hematology & Oncology
DX: Z51.11 Encounter for antineoplastic chemotherapy (principal); C50.211 Malignant neoplasm of upper-inner quadrant of right female breast; C18.2 Malignant neoplasm of ascending colon; C18.7 Malignant neoplasm of sigmoid colon; I12.9 Hypertensive chronic kidney disease with stage 1 through stage 4 chronic kidney disease, or unspecified chronic kidney disease; N18.30 Chronic kidney disease, stage 3 unspecified; E78.00 Pure hypercholesterolemia, unspecified; Z86.000 Personal history of in-situ neoplasm of breast; Z79.899 Other long term (current) drug therapy; Z90.12 Acquired absence of left breast and nipple; Z92.3 Personal history of irradiation
CPT/HCPCS: 80053; 83735; 85025; G0463; 36591; 82378

== ENCOUNTER 2021-10-23 08:44 | Outpatient (RCR) | payer MEDICARE, OTHER ==
[~2021-10-23] VITALS: Ht 172.7 cm; Wt 90.9 kg
[2021-10-23 10:18] LABS: BASOPHILS # (AUTO) 0.1 10^3/uL (0.0-0.1); BASOPHILS % (AUTO) 1 % (0-10); EOSINOPHILS # (AUTO) 0.2 10^3/uL (0.0-0.3); EOSINOPHILS % (AUTO) 3 % (0-10); HEMATOCRIT 39 % (35-52); HEMOGLOBIN 12.7 g/dL (11.5-16.0); LYMPHOCYTES # (AUTO) 1.6 10^3/uL (1.0-4.0); LYMPHOCYTES % (AUTO) 25 % (12-44); MEAN CORPUSCULAR HEMOGLOBIN 29 pg (25-34); MEAN CORPUSCULAR HGB CONC 33 g/dL (32-36); MEAN CORPUSCULAR VOLUME 88 fL (80-99); MEAN PLATELET VOLUME 9.8 fL (9.0-12.2); MONOCYTES # (AUTO) 0.6 10^3/uL (0.0-1.0); MONOCYTES % (AUTO) 10 % (0-12); NEUTROPHILS # (AUTO) 3.9 10^3/uL (1.8-7.8); NEUTROPHILS % (AUTO) 61 % (42-75); PLATELET COUNT 284 10^3/uL (130-400); WHITE BLOOD COUNT 6.4 10^3/uL (4.3-11.0)
[2021-10-23] MEDS ORDERED: PANT40TA52 PO (10:20)
[2021-10-23] MEDS ORDERED: SIMV80TA21 PO (10:20)
[2021-10-23 10:25] LABS: BILIRUBIN,URINE NEGATIVE (NEGATIVE); CLARITY,URINE CLEAR; COLOR,URINE YELLOW; GLUCOSE, URINE (UA) NEGATIVE (NEGATIVE); KETONES,URINE NEGATIVE (NEGATIVE); LEUKOCYTE ESTERASE ,URINE TRACE (NEGATIVE); NITRITE,URINE NEGATIVE (NEGATIVE); PH,URINE 5.5 (5-9); PROTEIN,URINE TRACE (NEGATIVE)
[2021-10-23 10:28] LABS: INR 0.9 (0.8-1.4); PROTHROMBIN TIME PATIENT 12.6 SEC (12.2-14.7)
[2021-10-23 10:29] LABS: ERYTHROCYTE SEDIMENTATION RATE 40 MM/HR (0-30)
--- NOTE | 2021-10-23 10:31 | Diagnostic Imaging Report ---
INDICATION: Preop for knee replacement surgery. TIME OF EXAM: 10:02 AM. COMPARISON: Correlation is made with the prior chest from 08/23/2020. FINDINGS: The heart size is normal. The left chest wall port has its tip overlying the SVC/right atrial junction. There are surgical clips overlying the left chest. The lungs are clear. The pulmonary vascularity is normal. There is no effusion or pneumothorax identified. IMPRESSION: No acute cardiopulmonary process is detected. Dictated by: Dictated on workstation # [id number]
[2021-10-23 10:35] LABS: ALBUMIN 3.8 GM/DL (3.2-4.5); BILIRUBIN,TOTAL 0.4 MG/DL (0.1-1.0); CALCIUM 9.1 MG/DL (8.5-10.1); CREATININE SERUM 0.93 MG/DL (0.60-1.30); TOTAL PROTEIN 7.5 GM/DL (6.4-8.2)
[2021-10-23 10:42] LABS: BACTERIA,URINE NEGATIVE /HPF; CALCIUM OXALATE CRYSTALS,UR FEW /LPF
== END 2021-10-25 | disposition home or self-care (01) ==
LOC: PREOP 08:44 → EDSTATUS 09:00
PROVIDERS: ATTEND Orthopaedic Surgery
DX: Z01.812 Encounter for preprocedural laboratory examination (principal); M17.11 Unilateral primary osteoarthritis, right knee
CPT/HCPCS: 36415; 71046; 80053; 81000; 85025; 85610; 85652; 86850; 86900; 86901; 87081

== ENCOUNTER 2021-10-28 05:31 | Outpatient (RCR) | payer MEDICARE, OTHER | END 2021-10-28 09:40 | disposition home or self-care (01) | LOC: PREOP 05:31 | PROVIDERS: ATTEND Orthopaedic Surgery | DX: M17.11 Unilateral primary osteoarthritis, right knee (principal); Z01.812 Encounter for preprocedural laboratory examination; Z20.822 Contact with and (suspected) exposure to COVID-19 | CPT/HCPCS: 87635 ==

== ENCOUNTER 2021-10-30 06:00 | Inpatient (IN) | payer MEDICARE, OTHER ==
--- NOTE | 2021-10-23 16:40 | HISTORY AND PHYSICAL ---
DATE OF SERVICE: This will be for inpatient admission for right total knee arthroplasty on 10/30/2021. The patient will require regular inpatient admission due to comorbidities, need for pain management and physical therapy. HISTORY OF PRESENT ILLNESS: The patient is a 71-year-old female with progressively worsening right medial knee pain. She reports activity limitations because of the knee. Radiographs reveal severe medial compartment arthrosis. She has tried rest, activity modifications without relief. Due to functional impairment and failure to improve with conservative measures, the patient has elected to proceed with surgical intervention. REVIEW OF SYSTEMS: No chest pain, no shortness of breath, no dysuria. PAST MEDICAL HISTORY: Breast and colon cancer, hypertension, hyperlipidemia. PAST SURGICAL HISTORY: Mastectomy, hysterectomy, colon resection, cholecystectomy. FAMILY HISTORY: Noncontributory. PRIMARY CARE PROVIDER: Dr. Mei. MEDICATIONS: Zyrtec, aspirin, letrozole, gabapentin, pantoprazole, paroxetine, propranolol, simvastatin. ALLERGIES: No known drug allergies. SOCIAL HISTORY: The patient drinks one glass of wine per day. Denies tobacco use. PHYSICAL EXAMINATION: GENERAL: The patient is well-developed, well-nourished, in no acute distress. HEENT: Normocephalic, atraumatic. Pupils are equal, round and reactive to light. Oropharynx is clear. NECK: Supple, no lymphadenopathy. LUNGS: Clear to auscultation bilaterally. HEART: Regular rate and rhythm. ABDOMEN: Soft, nontender, nondistended. EXTREMITIES: The right knee demonstrates varus alignment. She is tender along the medial joint line. She has pain medially with Mckinley's. She has a slight effusion. Range of motion is 0/0/120. There is no varus or valgus laxity, negative anterior and posterior drawer. She ambulates with an antalgic gait. She has negative straight leg raise. No hip pain with range of motion. IMPRESSION: Severe right knee osteoarthritis, unresponsive to conservative measures. PLAN: Right total knee arthroplasty. The risks, benefits, options, ramifications and recovery have been discussed at length with the patient. She understands and wishes to proceed. Job ID: [id number] DocumentID: [id number] Dictated Date: 10/14/2021 10:02:37 Supervisor Propellant Charge Loading Date: 10/14/2021 10:35:42 Dictated By: ALBERTO COELHO MD
[2021-10-30] VITALS (13 sets, daily range): BP systolic 118–161; BP diastolic 60–98
[~2021-10-30] VITALS: Ht 172.7 cm; Wt 90.9 kg
[2021-10-30] MEDS: LACTATED RINGERS 1,000 ML IV PRN ×2 (06:21→08:20)
[2021-10-30] MEDS ORDERED: CEFUROXIME INJECTION 1,500 MG in NS (IVPB) 50 ML IV ONE (06:30)
[2021-10-30] MEDS ORDERED: BUPIVACAINE 0.25% 30 ML (SENSORCAINE) VIAL ONE (06:51)
[2021-10-30] MEDS ORDERED: MIDAZOLAM 2 MG/2 ML (VERSED) VIAL ONE (06:52)
[2021-10-30] MEDS ORDERED: LIDOCAINE PF 2% 5 ML (XYLOCAINE) VIAL ONE (07:07)
[2021-10-30] MEDS ORDERED: SEVOFLURANE (ULTANE) 15 ML INHAL SOLN ONE ×2 (07:07→08:46)
[2021-10-30] MEDS ORDERED: fentaNYL INJ 100 MCG/2 ML AMP ONE ×3 (07:07→09:14)
[2021-10-30] MEDS ORDERED: proPOfol 200 MG/20 ML (DIPRIVAN) VIAL IV ONE (07:07)
[2021-10-30] MEDS ORDERED: TRANEXAMIC ACID 100 MG/ML 10 ML INJECTION ONE (07:07)
[2021-10-30] MEDS ORDERED: diphenhydrAMINE 50 MG/ML INJ (BENADRYL) IVP PRN (07:15)
[2021-10-30] MEDS ORDERED: ONDANSETRON 4 MG/2 ML (SDV) Z0FRAN IVP PRN ×2 (07:15→09:15)
[2021-10-30] MEDS ORDERED: NALOXONE 0.4 MG/ML 1 ML (NARCAN) VIAL IV PRN (07:15)
--- NOTE | 2021-10-30 07:15 | Progress Note-Pre Operative ---
Pre-Operative Progress Note H&P Reviewed The H&P was reviewed, patient examined and no changes noted. Date Seen by Provider: Oct 30, 2021 Time Seen by Provider: 07:15 Date H&P Reviewed: Oct 30, 2021 Time H&P Reviewed: 07:11 Pre-Operative Diagnosis: right knee primary osteoarthritis ALBERTO COELHO MD Oct 30, 2021 07:15
--- NOTE | 2021-10-30 07:16 | Progress Note-Post Operative ---
Post-Operative Progess Note Surgeon (s)/Vessel Engineer (s) Surgeon ALBERTO COELHO MD Vessel Engineer: Connor Lozoya Pre-Operative Diagnosis right knee primary osteoarthritis Post-Operative Diagnosis right knee primary osteoarthritis Procedure & Operative Findings Date of Procedure 10/30/21 Procedure Performed/Findings right total knee arthroplasty Anesthesia Type GETA Estimated Blood Loss Estimated blood loss (mL): minimal Specimens/Packing Specimens Removed none Packing: none ALBERTO COELHO MD Oct 30, 2021 07:16
--- NOTE | 2021-10-30 07:19 | D/C HH Face to Face Order ---
D/C Face to Face Orders Reconcile Patient Problems Problems Reviewed?: Yes Instructions for Patient Via [facility] [email or web address], Patient Instructions/FollowUp: three weeks Physician to follow Patient: three weeks Discharge Diet for Home: Regular Diet Patient Data-Allergies,Ht & Wt Patient Allergies: Coded Allergies: morphine (Unverified Allergy, Mild, RASH, has rec Lortab in the past, 10/23/21) codeine (Unverified Adverse Reaction, Mild, NAUSEA, 10/23/21) Height (Feet): 5 Height (Inches): 8.00 Weight (Pounds): 195 Weight (Ounces): 0.0 Home Health Need/Face to Face Date of Face to Face: Oct 30, 2021 Clinical Findings: Muscle weakness, Pain with ambulation, Unsteady gait I have seen Pt nmhy-fp-[id number]: Yes Discharged To: Home Diagnosis/Conditions: right total knee arthroplasty Patient is Homebound due to: Muscle weakness, Pain w/ambulation Homebound Status Due to the above stated illness, injury or surgical procedure (medical condition or diagnosis) and associated clinical findings, the patient is homebound because of his/her inability to leave home except with aid of a supportive device and/or person AND leaving the home requires a considerable and taxing effort or is medically contraindicated. Pt req the following assistanc: [facility] Nursing Orders Home Health Services Order: Physical Therapy-Evaluate & Treat DC knee pj and apply steri strips 11/13/21 Therapy Orders Therapy Orders: Physical Therapy, PT to assess for OT Therapy Specific Orders: Eval assistive deivces, Teach enviro modifications/safety, Gait training, Increase strength/endurance, Provider maintenance therapy, Restore ROM Certify Stmt I certify that this patient is under my care and that I, a nurse practitioner or a physician; a human resource assistant working with me, had a face to face encounter that - meets the physician face to face encounter requirements with this patient as dated. ALBERTO COELHO MD Oct 30, 2021 07:19
[2021-10-30] MEDS ORDERED: INTRA-ARTICULAR IU ONE ×5 (07:45)
--- NOTE | 2021-10-30 09:05 | Anesthesia-General Post-Op ---
General Patient Condition Mental Status/LOC: Same as Preop Cardiovascular: Satisfactory Nausea/Vomiting: Absent Respiratory: Satisfactory Pain: Controlled Complications: Absent Post Op Complications Complications None Follow Up Care/Instructions Patient Instructions None needed. Anesthesia/Patient Condition Patient Condition Patient is doing well, no complaints, stable vital signs, no apparent adverse anesthesia problems. No complications reported per nursing. PAWEL RAMIREZ CRNA Oct 30, 2021 09:05
[2021-10-30] MEDS ORDERED: fentaNYL INJ 100 MCG/2 ML AMP IVP ONE (09:15)
[2021-10-30] MEDS ORDERED: MEPERIDINE (DEMEROL) INJ 50 MG/ML IVP ONE (09:15)
[2021-10-30] MEDS ORDERED: PROMETHAZINE INJ 25 MG/ML (PHENERGAN) AMP IVP ONE (09:15)
[2021-10-30] MEDS ORDERED: HYDROmorphone 2 MG/ML VIAL (DILAUDID) IV ONE (09:15)
--- NOTE | 2021-10-30 09:19 | Progress Note ---
Standard Progress Note Progress Notes/Assess & Plan Date Seen by a Provider: Oct 30, 2021 Time Seen by a Provider: 09:18 Progress/Assessment & Plan post op check no complaints radiographs--HW well positioned without fracture RLE--2 plus DP pulse with brisk cap refill s/p RTKA mobilize as able ALBERTO COELHO MD Oct 30, 2021 09:19
--- NOTE | 2021-10-30 09:44 | Diagnostic Imaging Report ---
INDICATION: Right knee surgery. AP and lateral views of right knee are obtained. There has been total right knee arthroplasty with good alignment of prosthetic components. Gas and fluid is seen in the knee joint. No fracture, malalignment or orthopedic hardware complication is identified. IMPRESSION: No evidence of immediate complication post recent total right knee arthroplasty. Dictated by: Dictated on workstation # [id number]
[2021-10-30] MEDS: NS IV 1000 ML 1,000 ML IV SCH ×2 (11:58→20:40)
[2021-10-30] MEDS: SENNA W/DOCUSATE (SENOKOT S) TABLET PO SCH ×2 (12:45→20:36)
--- NOTE | 2021-10-30 13:19 | OPERATIVE REPORT ---
DATE OF SERVICE: 10/30/2021 PREOPERATIVE DIAGNOSIS: Right knee primary osteoarthritis. POSTOPERATIVE DIAGNOSIS: Right knee primary osteoarthritis. PROCEDURE: Right total knee arthroplasty. SURGEON: Ayan Coelho MD DIRECTOR OF FINANCE: Connor Lozoya, who assisted throughout the procedure and closed the incision. ANESTHESIA: General endotracheal by Hugo Lynne CRNA. TOURNIQUET TIME: Approximately 55 minutes at 300 mmHg. ESTIMATED BLOOD LOSS: Minimal. DRAINS: None. COMPLICATIONS: None. POSTOPERATIVE PLAN: Routine protocol. The patient was transferred to the recovery room awake and stable condition. MATERIALS: Microport cemented size 4 femur, cemented size 4 tibia with 10 mm insert and cemented size 32 patellar button. STATEMENT OF MEDICAL NECESSITY: The patient is a 71-year-old female with long-standing progressive right knee pain. Radiographs revealed severe medial and patellofemoral arthrosis. She has undergone treatment with injections, anti-inflammatories, rest and arthroscopy without relief. Due to functional impairment and failure to improve with conservative measures, the patient elected to proceed with surgical intervention. DESCRIPTION OF PROCEDURE: After risks and benefits of procedure were discussed and questions were answered, an informed consent was signed and placed on chart, the operative site was confirmed in the preoperative holding area initialed by the surgeon. The patient was then transferred to the operating room and after adequate levels of general endotracheal anesthetic were obtained, a timeout was called, confirming the operative site. The right lower extremity was prepped and draped in the usual sterile fashion with the leg elevated and the knee flexed. Tourniquet was inflated to 300 mmHg. Standard anterior approach was utilized. Hemostasis was obtained with cautery. Medial parapatellar arthrotomy was performed leaving 1 cm cuff on the patella for later reattachment. A portion of the fat pad was resected. The ACL was resected. The intramedullary guide was passed into the femoral canal. The distal cutting block was placed. The distal cut was made. The femur was sized to a size 4. The 4 cutting block was placed parallel to the epicondylar axis and cuts were made from posterior to anterior. A subperiosteal release was then carefully performed on the posterior distal femur, being careful to stay on the bony surface. Intramedullary guide was then passed into the tibia. The cutting block was placed. The drop kashmir transected the intermalleolar axis and the cut was made. The four baseplate was positioned and the drop kashmir transected the intermalleolar axis. This was then prepared with the drill and keel punch. The trials were inserted. The trochlear cut was made and a 10 mm insert trial was placed. The patella was then prepared by resecting 10 mm off of the undersurface. The peg guide was placed and peg holes were drilled. The 32 trial was placed. Knee was taken through range of motion. Full extension was easily obtained, 120 degrees of flexion with gravity was easily obtained. The patella tracked well. There was no anterior/posterior or medial/lateral laxity in flexion or extension. The trials were removed. The joint was irrigated with pulse lavage. Bone ends were irrigated with pulse lavage as well. The periarticular block was placed in the posterior capsule, medial and lateral retinaculum extensor mechanism, subcutaneous tissues. The bone ends were irrigated and dried. The tibial baseplate was cemented into position. Excessive cement was removed. The superior surface was irrigated and dried and the polyethylene insert was placed. The distal femur was irrigated and dried and the femoral prosthesis was cemented into position. Excessive cement was removed. The knee was brought out into full extension until cement had cured. The undersurface of the patella was irrigated and dried and the patellar button was cemented into position. Excessive cement was removed. Once the cement had cured, the knee was taken through range of motion. Full extension was easily obtained, 120 degrees of flexion with gravity was easily obtained. There was no anterior/posterior or medial/lateral laxity in flexion or extension and the patella tracked well. The joint was further irrigated with pulse lavage. Arthrotomy was closed with #2 Tevdek in rkdlcv-tv-fhqvl interrupted fashion. Knee was flexed and the repair was stable. Subcutaneous tissues were irrigated using a total of 6 liters throughout the procedure. A 0 Vicryl was used for deep subcutaneous tissue, 2-0 Vicryl for the superficial subcutaneous tissue, pj used on the skin. A soft dressing was applied. The patient was transferred to the recovery room awake and in stable condition. Job ID: [id number] DocumentID: [id number] Dictated Date: 10/30/2021 09:01:52 [employer]p [employer] Content Marketing Date: 10/30/2021 13:19:17 Dictated By: AYAN COELHO MD
--- NOTE | 2021-10-30 13:55 | Physical Therapy Evaluation ---
PT Evaluation-General Medical Diagnosis Admission Date Oct 30, 2021 at 06:00 Medical Diagnosis: right RKA Onset Date: Oct 30, 2021 Therapy Diagnosis Therapy Diagnosis: impaired mobility, strength, endurance Height/Weight Height (Feet): 5 Height (Inches): 8.00 Weight (Pounds): 195 Weight (Ounces): 0.0 Precautions Precautions/Isolations: Fall Prevention, Standard Precautions Weight Bear Status Right Lower Extremity: Right Weight Bearing/Tolerated Referral Physician: Darell Reason for Referral: Evaluation/Treatment Medical History Additional Medical History PAST MEDICAL HISTORY: Breast and colon cancer, hypertension, hyperlipidemia. PAST SURGICAL HISTORY: Mastectomy, hysterectomy, colon resection, cholecystectomy. Reviewed History: Yes Social History Home: Single Level Current Living Status: Spouse Entry Into Home: Stairs Without Railing Patient states she has "a few stairs to enter her home" Prior Prior Level of Function SCALE: Activities may be completed with or without assistive devices. 5-Nrlodpoogt-qidwsax completes the activity by him/herself with no assistance from a helper. 5-Set-up or Clean-up Assistance-helper sets up or cleans up; patient completes activity. [place] assists only prior to or following the activity. 4-Supervision or Touching Assistance-helper provides verbal cues and/or touching/steadying and/or contact guard assistance as patient completes activit y. Assistance may be provided throughout the activity or intermittently. 3-Partial/Moderate Assistance-helper does LESS THAN HALF the effort. [place] lifts, holds or supports trunk or limbs, but provides less than half the effort. 2-Substantial/Maximal Assistance-helper does MORE THAN HALF the effort. [place] lifts or holds trunk or limbs and provides more than half the effort. 7-Hrhttdgtf-xmwhyy does ALL the effort. Patient does none of the effort to complete the activity. Or, the assistance of 2 or more helpers is required for the patient to complete the activity. If activity was not attempted, code reason: 7-Patient Refused. 9-Not Applicable-not attempted and the patient did not perform the activity before the current illness, exacerbation or injury. 10-Not Attempted due to Environmental Limitations-(lack of equipment, weather restraints, etc.). 88-Not Attempted due to Medical Conditions or Safety Concerns. Bed Mobility: 6 Transfers (B,C,W/C): 6 Gait: 6 Stairs: 6 Indoor Mobility (Ambulation): Independent Stairs: Independent PT Evaluation-Current Subjective Patient in bed pre tx, agrees to PT, has 3/10 pain in right knee, very drowsy. Pt/Family Goals to be independent at home Objective Patient Orientation: Person, Place, Situation Attachments: Oxygen, IV ROM/Strength ROM Lower Extremities right knee flexion 80 degrees, extension +5 degrees Sensory Vision: Wears Glasses Hearing: Functional Sensation Right Lower Extremit: Intact Sensation Left Lower Extremity: Intact Sensation Lower Extremities Patient states she still has some numbness in her right leg but seems to have intact light touch sensation. Transfers Roll Left to Right (QC): 6 Sit to Lying (QC): 3 Lying to Sitting/Side of Bed(Q: 3 Sit to Stand (QC): 4 Chair/Onl-qb-Ewhir Xfer(QC): 4 Gait Does the Patient Walk?: Yes Mode of Locomotion: Walk Anticipated Mode of Locomotion: Walk Walk 10 feet (QC): 4 Distance: 25' Gait Assistive Device: FWW Comments/Gait Description Patient ambulates out of her room doorway and back to the bed, gait is slow, antalgic, no buckling Balance Sitting Static: Normal Sitting Dynamic: Normal Standing Static: Good Standing Dynamic: Good Treatment RLE total knee protocol x10 (AP, QS, HS, SAQ, SLR), CPM donned and fit to leg and set to 60/-2 degrees Assessment/Needs Patient in bed post tx with nurse call, phone, isaky, [facility], SCD's, all needs met. Patient has impaired mobility, strength, endurance, ROM. She was lightheaded throughout treatment. Rehab Potential: Fair PT Publicity Writer Goals Publicity Writer Goals PT Publicity Writer Goals Time Frame: Nov 06, 2021 Roll Left & Right (QC): 6 Sit to Lying (QC): 6 Lying-Sitting on Side/Bed(QC): 6 Sit to Stand (QC): 6 Chair/Jfk-er-Azntz Xfer(QC): 6 Walk 10 feet (QC): 6 Walk 50ft with 2 Turns (QC): 6 Walk 150 ft (QC): 6 1 Step (curb) (QC): 4 4 Steps (QC): 4 PT Plan Problem List Problem List: Activity Tolerance, Functional Strength, Safety, Balance, Gait, Transfer, Bed Mobility, ROM Treatment/Plan Treatment Plan: Continue Plan of Care Treatment Plan: Bed Mobility, Education, Functional Activity Dejon, Functional Strength, Gait, Safety, Therapeutic Exercise, Transfers Treatment Duration: Nov 06, 2021 Frequency: 11 times per week Estimated Hrs Per Day: .25 hour per day Patient and/or Family Agrees t: Yes Safety Risks/Education Patient Education: Gait Training, Transfer Techniques, Correct Positioning, Safety Issues Teaching Recipient: Patient Teaching Methods: Demonstration, Discussion Response to Teaching: Reinforcement Needed Discharge Recommendations Plan Patient will perform bed mobility and transfer training, balance and endurance training, functional strengthening, stair training, gait training, and education, to improve functional mobility and independence at home. Therapy Discharge Recommendati: Home & Family, Post Acute PT Time/GCodes Time In: 1310 Time Out: 1330 Total Billed Treatment Time: 20 Total Billed Treatment 1 visit EVOdilon 20' CIRILO POLK PT Oct 30, 2021 13:55
[2021-10-30] MEDS: CEFUROXIME INJECTION 750 MG in NS (IVPB) 50 ML IV SCH ×2 (14:47→23:01)
[2021-10-30] MEDS: oxyCODONE/APAP 5/325MG (PERCOCET 5) TABLET PO PRN ×2 (15:06→20:45)
[2021-10-30] MEDS: PROPRANOLOL 20 MG (INDERAL) TABLET PO SCH ×2 (20:37→20:40)
[2021-10-30] MEDS: SIMvastatin 40 MG (ZOCOR) TAB PO SCH (20:37)
[2021-10-31 04:07] VITALS: BP 114/57
[2021-10-31] MEDS: oxyCODONE/APAP 5/325MG (PERCOCET 5) TABLET PO PRN ×6 (05:23→19:47)
[2021-10-31] MEDS: MULTIVIT W/MINERALS TAB (THERAGRAN M) PO SCH ×2 (05:23→08:16)
[2021-10-31 05:46] LABS: HEMOGLOBIN 11.3 g/dL (11.5-16.0)
[2021-10-31 06:40] LABS: BASOPHILS # (AUTO) 0.1 10^3/uL (0.0-0.1); BASOPHILS % (AUTO) 1 % (0-10); EOSINOPHILS # (AUTO) 0.1 10^3/uL (0.0-0.3); EOSINOPHILS % (AUTO) 1 % (0-10); HEMATOCRIT 35 % (35-52); HEMOGLOBIN 11.2 g/dL (11.5-16.0); LYMPHOCYTES % (AUTO) 9 % (12-44); MEAN CORPUSCULAR HEMOGLOBIN 29 pg (25-34); MEAN CORPUSCULAR HGB CONC 32 g/dL (32-36); MEAN CORPUSCULAR VOLUME 91 fL (80-99); MONOCYTES # (AUTO) 0.9 10^3/uL (0.0-1.0); MONOCYTES % (AUTO) 8 % (0-12); NEUTROPHILS % (AUTO) 81 % (42-75); PLATELET COUNT 271 10^3/uL (130-400); WHITE BLOOD COUNT 11.1 10^3/uL (4.3-11.0)
[2021-10-31 07:04] LABS: ALBUMIN 3.2 GM/DL (3.2-4.5)
[2021-10-31 07:05] LABS: POTASSIUM 3.7 MMOL/L (3.6-5.0)
[2021-10-31 07:06] LABS: CALCIUM 7.9 MG/DL (8.5-10.1)
[2021-10-31 07:07] LABS: TOTAL PROTEIN 6.3 GM/DL (6.4-8.2)
[2021-10-31 07:09] LABS: BILIRUBIN,TOTAL 0.9 MG/DL (0.1-1.0)
[2021-10-31 07:10] LABS: CREATININE SERUM 0.92 MG/DL (0.60-1.30)
--- NOTE | 2021-10-31 07:46 | Progress Note ---
Standard Progress Note Progress Notes/Assess & Plan Date Seen by a Provider: Oct 31, 2021 Time Seen by a Provider: 07:45 Progress/Assessment & Plan post op check no complaints radiographs--HW well positioned without fracture RLE--2 plus DP pulse with brisk cap refill s/p RTKA mobilize as able Final Diagnosis no complaints Vital Signs Date Time Temp Pulse Resp B/P (MAP) Pulse Ox O2 Delivery O2 Flow Rate FiO2 10/31/21 04:07 35.9 89 18 114/57 (76) 90 Room Air 10/30/21 23:51 36.7 85 18 118/60 (79) 95 Room Air 10/30/21 20:03 Room Air 10/30/21 20:01 20 10/30/21 19:58 36.8 71 18 126/82 (97) 93 Room Air 10/30/21 16:07 36.5 71 18 123/79 (94) 95 Nasal Cannula 1.00 10/30/21 15:24 99 Nasal Cannula 2.50 10/30/21 11:30 36.7 71 20 143/72 (95) 99 Nasal Cannula 2.50 10/30/21 10:09 36.1 72 16 159/80 (106) 98 Nasal Cannula 2.50 10/30/21 10:00 36.2 20 141/91 (108) 100 Nasal Cannula 3 10/30/21 10:00 Nasal Cannula 3 10/30/21 09:50 20 140/89 (106) 100 Nasal Cannula 3 10/30/21 09:45 Nasal Cannula 3 10/30/21 09:40 20 151/98 (115) 98 Nasal Cannula 3 10/30/21 09:30 OxyMask 6 10/30/21 09:30 20 153/89 (110) 100 OxyMask 6 10/30/21 09:20 20 151/96 (114) 95 OxyMask 6 10/30/21 09:15 OxyMask 4 10/30/21 09:10 20 137/82 (100) 99 OxyMask 6 10/30/21 09:00 Nasal Cannula 3.00 10/30/21 08:59 OxyMask 4 10/30/21 08:59 36.2 20 161/94 (116) 100 OxyMask 4 I & O 10/31/21 07:00 Intake Total 2932 ml Balance 2932 ml Laboratory Tests Test 10/31/21 05:05 10/31/21 06:46 Range/Units White Blood Count 11.1 H 4.3-11.0 10^3/uL Red Blood Count 3.88 3.80-5.11 10^6/uL Hemoglobin 11.2 L 11.5-16.0 g/dL Hematocrit 35 35-52 % Mean Corpuscular Volume 91 80-99 fL Mean Corpuscular Hemoglobin 29 25-34 pg Mean Corpuscular Hemoglobin Concent 32 32-36 g/dL Red Cell Distribution Width 13.2 10.0-14.5 % Platelet Count 271 130-400 10^3/uL Mean Platelet Volume 10.0 9.0-12.2 fL Immature Granulocyte % (Auto) 0 % Neutrophils (%) (Auto) 81 H 42-75 % Lymphocytes (%) (Auto) 9 L 12-44 % Monocytes (%) (Auto) 8 0-12 % Eosinophils (%) (Auto) 1 0-10 % Basophils (%) (Auto) 1 0-10 % Neutrophils # (Auto) 9.0 H 1.8-7.8 10^3/uL Lymphocytes # (Auto) 1.0 1.0-4.0 10^3/uL Monocytes # (Auto) 0.9 0.0-1.0 10^3/uL Eosinophils # (Auto) 0.1 0.0-0.3 10^3/uL Basophils # (Auto) 0.1 0.0-0.1 10^3/uL Immature Granulocyte # (Auto) 0.0 0.0-0.1 10^3/uL Sodium Level 138 135-145 MMOL/L Potassium Level 3.7 3.6-5.0 MMOL/L Chloride Level 106 98-107 MMOL/L Carbon Dioxide Level 24 21-32 MMOL/L Anion Gap 8 5-14 MMOL/L Blood Urea Nitrogen 11 7-18 MG/DL Creatinine 0.92 0.60-1.30 MG/DL Estimat Glomerular Filtration Rate 60 BUN/Creatinine Ratio 12 Glucose Level 120 H 70-105 MG/DL Calcium Level 7.9 L 8.5-10.1 MG/DL Corrected Calcium 8.5 8.5-10.1 MG/DL Total Bilirubin 0.9 0.1-1.0 MG/DL Aspartate Amino Transf (AST/SGOT) 175 H 5-34 U/L Alanine Aminotransferase (ALT/SGPT) 165 H 0-55 U/L Alkaline Phosphatase 116 40-136 U/L Total Protein 6.3 L 6.4-8.2 GM/DL Albumin 3.2 3.2-4.5 GM/DL RLE--dressing intact. NVI distally. No calf tenderness s/p RTKA doing well PT/OT ALBERTO COELHO MD Oct 31, 2021 07:46
[2021-10-31] MEDS: PROPRANOLOL 20 MG (INDERAL) TABLET PO SCH ×2 (08:15→19:46)
[2021-10-31] MEDS: PARoxetine 20 MG (PAXIL) TAB PO SCH (08:15)
[2021-10-31] MEDS: ASPIRIN E.C. 81 MG (ECOTRIN) TAB PO SCH (08:15)
[2021-10-31] MEDS: PANTOPRAZOLE 40 MG (PROTONIX) TAB PO SCH (08:15)
[2021-10-31] MEDS: SENNA W/DOCUSATE (SENOKOT S) TABLET PO SCH ×2 (08:15→19:38)
[2021-10-31] MEDS: ENOXAPARIN 30 MG/0.3 ML (LOVENOX) SYR SC SCH ×2 (08:17→19:47)
[2021-10-31] MEDS: NS IV 1000 ML 1,000 ML IV SCH ×2 (08:25→19:46)
[2021-10-31] MEDS: LETROZOLE 2.5 MG (FEMARA) TAB PO SCH (08:27)
[2021-10-31 08:59] VITALS: BP 104/67
--- NOTE | 2021-10-31 09:02 | Anesthesia-General Post-Op ---
General Patient Condition Mental Status/LOC: Same as Preop Cardiovascular: Satisfactory Nausea/Vomiting: Absent Respiratory: Satisfactory Pain: Controlled Complications: Absent Post Op Complications Complications None Follow Up Care/Instructions Patient Instructions None needed. Anesthesia/Patient Condition Patient Condition Patient is doing well, no complaints, stable vital signs, no apparent adverse anesthesia problems. No complications reported per nursing. ZOE MORENO CRNA Oct 31, 2021 09:02
--- NOTE | 2021-10-31 10:47 | Physical Therapy Daily Note ---
PT Daily Note-Current Subjective Patient agrees to PT. Rates right knee pain 6/10 with meds issued. Pain Numeric Pain Scale: 6 Location: Right Location Body Site: Knee Pain Description: Acute Mental Status Patient Orientation: Normal For Age Attachments: Oxygen, IV Transfers SCALE: Activities may be completed with or without assistive devices. 3-Puudogoqkv-rwmiibk completes the activity by him/herself with no assistance from a helper. 5-Set-up or Clean-up Assistance-helper sets up or cleans up; patient completes activity. [place] assists only prior to or following the activity. 4-Supervision or Touching Assistance-helper provides verbal cues and/or touching/steadying and/or contact guard assistance as patient completes activity. Assistance may be provided throughout the activity or intermittently. 3-Partial/Moderate Assistance-helper does LESS THAN HALF the effort. [place] lifts, holds or supports trunk or limbs, but provides less than half the effort. 2-Substantial/Maximal Assistance-helper does MORE THAN HALF the effort. [place] lifts or holds trunk or limbs and provides more than half the effort. 0-Xbrytsnvn-tbndek does ALL the effort. Patient does none of the effort to complete the activity. Or, the assistance of 2 or more helpers is required for the patient to complete the activity. If activity was not attempted, code reason: 7-Patient Refused. 9-Not Applicable-not attempted and the patient did not perform the activity before the current illness, exacerbation or injury. 10-Not Attempted due to Environmental Limitations-(lack of equipment, weather restraints, etc.). 88-Not Attempted due to Medical Conditions or Safety Concerns. Lying to Sitting/Side of Bed(Q: 6 Sit to Stand (QC): 4 Chair/Tjk-bw-Fpvrg Xfer(QC): 4 CGA for safety Weight Bearing Right Lower Extremity: Right Weight Bearing/Tolerated Gait Training Does the Patient Walk?: Yes Distance: 250' Walk 10 feet (QC): 4 Walk 50 ft with 2 Turns(QC): 4 Walk 150 ft (QC): 4 Gait Assistive Device: FWW slow, steady, reciprocal pattern/slightly antalgic Exercises Supine Ex: Ankle pumps, Quad Set, Heel Slides, Straight leg raise Supine Reps: 15 Seated Therapy Exercises: Long arc quads Seated Reps: 15 Assessment Patient tolerated treatment well and is up in recliner with needs met. Patient plans to dismiss to home tomorrow. PT Plant Hr Manager Goals Plant Hr Manager Goals PT Plant Hr Manager Goals Time Frame: Nov 06, 2021 Roll Left & Right (QC): 6 Sit to Lying (QC): 6 Lying-Sitting on Side/Bed(QC): 6 Sit to Stand (QC): 6 Chair/Crw-ii-Otbjn Xfer(QC): 6 Walk 10 feet (QC): 6 Walk 50ft with 2 Turns (QC): 6 Walk 150 ft (QC): 6 1 Step (curb) (QC): 4 4 Steps (QC): 4 PT Plan Treatment/Plan Treatment Plan: Continue Plan of Care Treatment Plan: Bed Mobility, Education, Functional Activity Dejon, Functional Strength, Gait, Safety, Therapeutic Exercise, Transfers Treatment Duration: Nov 06, 2021 Frequency: 11 times per week Estimated Hrs Per Day: .25 hour per day Patient and/or Family Agrees t: Yes Time/GCodes Time In: 800 Time Out: 824 Total Billed Treatment Time: 24 Total Billed Treatment 1 visit GT 11 min EX 13 min ADRIANA MORE PT Oct 31, 2021 10:46
--- NOTE | 2021-10-31 11:13 | Occupational Therapy Eval ---
OT Evaluation-General/PLF Medical Diagnosis Admission Date Oct 30, 2021 at 06:00 Medical Diagnosis: right RKA Onset Date: Oct 30, 2021 Therapy Diagnosis Therapy Diagnosis: impaired balance, iadls Height/Weight Height (Feet): 5 Height (Inches): 8.00 Weight (Pounds): 195 Weight (Ounces): 0.0 Precautions Precautions/Isolations: Fall Prevention, Standard Precautions Referral Physician: Darell Referral Reason: Evaluation/Treatment Medical History Current History Post op day 1, s/p R TKA Reviewed History: Yes Social History Home: Multilevel Current Living Status: Spouse Entry Into Home: Stairs Without Railing Pt lives in multilevel home, all needs on main level except hobbies are located in basement. She was indep with all adls/iadls prior to admission and was not using any AD. ADL-Prior Level of Function SCALE: Activities may be completed with or without assistive devices. 5-Gfslambulm-ytqvoyf completes the activity by him/herself with no assistance from a helper. 5-Set-up or Clean-up Assistance-helper sets up or cleans up; patient completes activity. [place] assists only prior to or following the activity. 4-Supervision or Touching Assistance-helper provides verbal cues and/or touching/steadying and/or contact guard assistance as patient completes activity. Assistance may be provided throughout the activity or intermittently. 3-Partial/Moderate Assistance-helper does LESS THAN HALF the effort. [place] lifts, holds or supports trunk or limbs, but provides less than half the effort. 2-Substantial/Maximal Assistance-helper does MORE THAN HALF the effort. [place] lifts or holds trunk or limbs and provides more than half the effort. 5-Uqxvkhiqi-zojxrj does ALL the effort. Patient does none of the effort to complete the activity. Or, the assistance of 2 or more helpers is required for the patient to complete the activity. If activity was not attempted, code reason: 7-Patient Refused. 9-Not Applicable-not attempted and the patient did not perform the activity before the current illness, exacerbation or injury. 10-Not Attempted due to Environmental Limitations-(lack of equipment, weather restraints, etc.). 88-Not Attempted due to Medical Conditions or Safety Concerns. Self Care: Independent Functional Cognition: Independent DME/Equipment: Grab Bars, Shower Drive Self: Yes OT Current Status Subjective Reports pain as 6/10, unsure of time of last pain pill. Appearance Left sitting in recliner, all needs within reach. Mental Status/Objective Patient Orientation: Person, Place, Situation Attachments: IV Current Upper Extremity ROM WNL Upper Extremity Strength WFL ADL-Treatment Oral Hygiene (QC): 4 On/Off Footwear (QC): 4 Toileting Hygiene (QC): 4 Supine>sit: CGA, extra time. Able to don/doff bilateral socks with extra effort but no assist required. Reports spouse can assist if needed. Sit<>stand: Min A for initial boost. Cues for correct hand placement has pt has tendency to pull up with both hands on walker. Pt able to ambulate short distance within room with CGA and use of walker. Toilet transfer: CGA with use of grab bar. Steadying assist needed when removing BUE support during clothing management. Education OT Patient Education: Correct positioning, Modified ADL techniques, Progress toward Goal/Update tx plan, Purpose of tx/functional activities, Reviewed precautions, Safety issues, Transfer techniques Teaching Recipient: Patient Teaching Methods: Demonstration, Discussion Response to Teaching: Verbalize Understanding, Return Demonstration, Reinforcement Needed OT Assisted Goals Steel Melter Goals Time Frame: Nov 05, 2021 Oral Hygiene (QC): 6 Toileting Hygiene (QC): 6 Upper Body Dressing (QC): 5 Lower Body Dressing (QC): 5 On/Off Footwear (QC): 5 1=Demonstrate adherence to instructed precautions during ADL tasks. 2=Patient will verbalize/demonstrate understanding of assistive devices/modifications for ADL. 3=Patient will improve strength/tolerance for activity to enable patient to perform ADL's. OT Education/Plan Problem List/Assessment Assessment: Decreased Activ Tolerance, Impaired Funct Balance, Impaired I ADL's, Impaired Self-Care Skills Discharge Recommendations Plan/Recommendations: Continue POC Therapy Discharge Recommendati: Homemaker Support, Home & Family Treatment Plan/Plan of Care Treatment,Training & Education: Yes Patient would benefit from OT for education, treatment and training to promote independence in ADL's, mobility, safety and/or upper extremity function for ADL's. Plan of Care: ADL Retraining, Functional Mobility, UE Funct Exercise/Act Treatment Duration: Nov 05, 2021 Frequency: 3 times per week Estimated Hrs Per Day: .25 hour per day Agreement: Yes Rehab Potential: Fair Time/GCodes Start Time: :28 Stop Time: 10:41 Total Time Billed (hr/min): 13 Billed Treatment Time 1 visit Indu Rushing OT Oct 31, 2021 11:13
[2021-10-31 12:31] VITALS: BP 118/72
--- NOTE | 2021-10-31 14:16 | Consultation ---
SHARLENE CRUZ 10/31/21 1416: HPI History of Present Illness: HPI/Chief Complaint CC: Patient presents s/p right total knee arthroplasty on 10/30/2020. HPI: She began experiencing right medial knee pain in July. She states that it felt like she had a bruise but did not note any skin changes over the area. She went to a [facility] in [place], [place] for the pain; patient reports an xray displayed "bone on bone" of her right knee. Patient states that since having surgery yesterday she is experiencing posterior right knee pain that feels achy and rates 5/10. She was expecting to have increased pain today. Denies pain elsewhere. She has been ambulating, sitting up, and doing exercises with PT. She states that this is going well. Eating and drinking have been going well although she does report a decreased appetite. Her last bowel movement was a couple hours ago; she states she has chronic diarrhea since her colon resection. She is using her incentive spirometer periodically. Medications, labs, and imaging have been reviewed. Source: patient Exam Limitations: no limitations Date Seen 10/31/21 Attending Physician Ayan Latif MD PCP Cher Mei MD Referring Physician Dr. Salomon SAN Date of Admission Oct 30, 2021 at 06:00 Home Medications & Allergies Home Medications Reviewed patient Home Medication Reconciliation performed by pharmacy medication reconciliations certified medication technician and/or nursing. Patients Allergies have been reviewed. Allergies Allergies Coded Allergies morphine (Unverified Allergy, Mild, RASH, has rec Lortab in the past, 10/30/21) codeine (Unverified Adverse Reaction, Mild, NAUSEA, 10/30/21) Past Svhmypc-Tgauww-Tjvlyh Hx Patient Social History Marrital Status: ( to for 35 years) Number of Children: 2 (2 adopted daughters) Employed/Student: retired (Retired order fulfillment specialist) Tobacco Use?: No Smoking Status: Never a Smoker Substance use?: No Alcohol Use?: Yes Alcohol type: Wine (one glass each day) Alcohol Frequency: Daily Additional Alcohol Comments: WINE WITH DINNER Immunizations Up To Date Date of Influenza Vaccine: Jul 30, 2021 First/Initial COVID19 Vaccinat: DECEMBER 2020 Second COVID19 Vaccination Ryan: JANUARY 2021 Date of Pneumonia Vaccine: Aug 01, 2019 Current Status status: No (71 year old female with history of hysterectomy) Communicates: Verbally Primary Language: Greenlandic Preferred Spoken Language: Greenlandic Is interpretation needed?: No Past Medical History Surgeries: Abdominal (colon resection), Breast, Gallbladder, Hysterectomy, Orthopedic (Right total knee arthroplasty) Currently Using CPAP: No Currently Using BIPAP: No High Cholesterol, Hypertension Headaches /Migraines MIDLEVEL PROVIDER History: Hysterectomy Sexually Transmitted Disease: No HIV/AIDS: No Chronic Diarrhea (due to colon resection) Arthritis Loss of Vision: Denies Hearing Impairment: Denies Breast, Colon Did You Recieve Any Treatments: Yes What Type of Treatment Did You: Chemotherapy, Radiation, Surgical Intervention Anxiety, Depression Recent Skin Changes Blood Disorders: Yes (FE DEF ANEMIA) Adverse Reaction/Blood Tranf: No (N/A) Family Medical History Completed stroke 19 MOTHER, FH: pancreatic cancer 19 FATHER, Hypertension 19 FATHER, 19 MOTHER, G8 BROTHER, G8 SISTER Respiratory disorder G8 BROTHER, No Pertinent Family Hx Review of Systems Constitutional: no symptoms reported Respiratory: short of breath Cardiovascular: No chest pain, No edema Gastrointestinal: No abdominal pain; diarrhea (chronic diarrhea due to colon resection); No nausea, No vomiting; other (reports decreased appetite) Genitourinary: no symptoms reported Musculoskeletal: joint pain (right posterior knee pain) Psychiatric/Neurological: Denies Headache; Other (denies dizziness) Physical Exam Physical Exam Vital Signs Vital Signs - First Documented 10/30/21 06:25 Temp 36.6 Pulse 78 Resp 18 B/P (MAP) 134/82 (99) Pulse Ox 97 O2 Delivery Room Air Capillary Refill : Less Than 3 Seconds Height, Weight, BMI Height: 5'8.00" Weight: 195lbs. 0.0oz. [id number]; 30.47 BMI Method: General Appearance: No Apparent Distress Neck: Non Tender, Supple; No Lymphadenopathy (L), No Lymphadenopathy (R) Respiratory: Lungs Clear, Normal Breath Sounds, No Accessory Muscle Use, No Respiratory Distress Cardiovascular: Regular Rate, Rhythm, No Edema, No Murmur, Normal Peripheral Pulses (radial pulse +2 bilaterally) Gastrointestinal: Normal Bowel Sounds, Non Tender, Soft Extremity: No Pedal Edema, Other (Dressing present on right knee) Neurologic/Psychiatric: Alert, Normal Mood/Affect Skin: Normal Color, Warm/Dry Lymphatic: No Adenopathy (no cervical or supraclavicular adenopathy) Results Results/Procedures Labs Laboratory Tests 10/31/21 05:05 10/31/21 06:46 Patient resulted labs reviewed. Assessment/Plan Assessment and Plan Assess & Plan/Chief Complaint Assessment: S/p right total knee arthroplasty Anemia, likely due to surgery Hyperlipidemia HTN A+ blood type Depression Anxiety S/p breast cancer with mastectomy, currently taking letrozole S/p colon cancer with colon resection Chronic diarrhea due to colon resection Osteoarthritis Suppressed appetite Plan: Pain management Monitor hemoglobin Labs in AM: CBC, BMP Monitor vitals Cardiac diet as tolerated, monitor appetite PT/OT Lovenox for DVT prophylaxis ZIATAISHA DO 11/01/21 0556: HPI History of Present Illness: HPI/Chief Complaint Chief Complaint: Right Knee Replacement [facility] [id number] Patient of Dr. Mei is status post-uncomplicated right knee replacement by Dr. Latif. Currently she is reporting pain is worse than yesterday but she is able to navigate and work with PT. She is taking pain medication. Post-Op anemia noted at 11.2. Overall, she is using her incentive spirometer and has no concerns. Source: patient Exam Limitations: no limitations Past Renwhbb-Zbkxan-Vzmgcb Hx Patient Social History Marrital Status: ( to for 35 years) Employed/Student: retired (Retired order fulfillment specialist) Tobacco Use?: No Past Medical History Hypertension Chronic Diarrhea (due to colon resection) Breast Family Medical History Completed stroke 19 MOTHER, FH: pancreatic cancer 19 FATHER, Hypertension 19 FATHER, 19 MOTHER, G8 BROTHER, G8 SISTER Respiratory disorder G8 BROTHER, Review of Systems Constitutional: see HPI EENTM: no symptoms reported Respiratory: no symptoms reported Cardiovascular: no symptoms reported Gastrointestinal: no symptoms reported Genitourinary: no symptoms reported Musculoskeletal: back pain, joint pain (right posterior knee pain) Skin: no symptoms reported Psychiatric/Neurological: No Symptoms Reported All Other Systems Reviewed Negative Unless Noted: Yes Physical Exam Physical Exam General Appearance: No Apparent Distress, WD/WN, Chronically ill Eyes: Bilateral Eye Normal Inspection, Bilateral Eye PERRL HEENT: PERRL/EOMI, Normal ENT Inspection, Pharynx Normal Neck: Full Range of Motion, Normal Inspection, Non Tender, Supple, Carotid Bruit Respiratory: Chest Non Tender, Lungs Clear, Normal Breath Sounds, No Accessory Muscle Use, No Respiratory Distress Cardiovascular: Regular Rate, Rhythm, No Edema, No Gallop, No JVD, No Murmur, Normal Peripheral Pulses Gastrointestinal: Normal Bowel Sounds, No Organomegaly, No Pulsatile Mass, Non Tender, Soft Back: Normal Inspection, No CVA Tenderness, No Vertebral Tenderness Extremity: Normal Capillary Refill, Normal Inspection, Normal Range of Motion (decreased post op), Non Tender, No Calf Tenderness, No Pedal Edema Neurologic/Psychiatric: Alert, Oriented x3, No Motor/Sensory Deficits, Normal Mood/Affect Skin: Normal Color, Warm/Dry Lymphatic: No Adenopathy Assessment/Plan Assessment and Plan Assess & Plan/Chief Complaint Assessment: Pain control Monitor hgb BM regimen PT OT Diagnosis/Problems Diagnosis/Problems (1) Osteoarthritis of right knee (2) HTN (hypertension) Status: Chronic (3) Colon cancer Status: Acute (4) Breast cancer Status: Chronic Supervisory-Addendum Brief Verification & Attestation Participated in pt care: history, MDM, physical Personally performed: exam, history, MDM, supervision of care Care discussed with: Medical Student Procedures: n/a Results interpretation: Verified all documentation Verification and Attestation of Medical Student E/M Service A medical student performed and documented this service in my presence. I reviewed and verified all information documented by the medical student and made modifications to such information, when appropriate. I personally performed the physical exam and medical decision making. Taisha Lizarraga, Nov 01, 2021,05:53 SHARLENE CRUZ Oct 31, 2021 14:16 TAISHA LIZARRAGA DO Nov 01, 2021 05:56
--- NOTE | 2021-10-31 14:28 | Physical Therapy Daily Note ---
PT Daily Note-Current Subjective Patient is in bed and very groggy. Not safe for OOB activity. Agrees to exercises. RN notified. Mental Status Patient Orientation: Listless Attachments: Oxygen, IV Transfers SCALE: Activities may be completed with or without assistive devices. 8-Fxxrobceuo-vszyoey completes the activity by him/herself with no assistance from a helper. 5-Set-up or Clean-up Assistance-helper sets up or cleans up; patient completes activity. [place] assists only prior to or following the activity. 4-Supervision or Touching Assistance-helper provides verbal cues and/or touching/steadying and/or contact guard assistance as patient completes activity. Assistance may be provided throughout the activity or intermittently. 3-Partial/Moderate Assistance-helper does LESS THAN HALF the effort. [place] lifts, holds or supports trunk or limbs, but provides less than half the effort. 2-Substantial/Maximal Assistance-helper does MORE THAN HALF the effort. [place] lifts or holds trunk or limbs and provides more than half the effort. 0-Eanzdmqdn-gaznwa does ALL the effort. Patient does none of the effort to complete the activity. Or, the assistance of 2 or more helpers is required for the patient to complete the activity. If activity was not attempted, code reason: 7-Patient Refused. 9-Not Applicable-not attempted and the patient did not perform the activity before the current illness, exacerbation or injury. 10-Not Attempted due to Environmental Limitations-(lack of equipment, weather restraints, etc.). 88-Not Attempted due to Medical Conditions or Safety Concerns. Weight Bearing Right Lower Extremity: Right Weight Bearing/Tolerated Exercises Supine Ex: Ankle pumps, Quad Set, Heel Slides, Straight leg raise Supine Reps: 12 (AAROM right LE) Treatments CPM 0-[address] with polar pack on right knee Assessment Patient tolerated exercises this p.m. Continues to be lethargic and confused. RN notified with PT concerns. PT Group Home Goals Care Administrative Tech Goals PT Care Administrative Tech Goals Time Frame: Nov 06, 2021 Roll Left & Right (QC): 6 Sit to Lying (QC): 6 Lying-Sitting on Side/Bed(QC): 6 Sit to Stand (QC): 6 Chair/Ytv-he-Pmrmv Xfer(QC): 6 Walk 10 feet (QC): 6 Walk 50ft with 2 Turns (QC): 6 Walk 150 ft (QC): 6 1 Step (curb) (QC): 4 4 Steps (QC): 4 PT Plan Treatment/Plan Treatment Plan: Continue Plan of Care Treatment Plan: Bed Mobility, Education, Functional Activity Dejon, Functional Strength, Gait, Safety, Therapeutic Exercise, Transfers Treatment Duration: Nov 06, 2021 Frequency: 11 times per week Estimated Hrs Per Day: .25 hour per day Patient and/or Family Agrees t: Yes Time/GCodes Time In: 1400 Time Out: 1412 Total Billed Treatment Time: 12 Total Billed Treatment 1 visit EX 12 min ADRIANA MORE PT Oct 31, 2021 14:27
[2021-10-31 15:00] VITALS: BP 144/83
[2021-10-31] MEDS: SIMvastatin 40 MG (ZOCOR) TAB PO SCH (19:46)
[2021-10-31 19:49] VITALS: BP 130/74
[2021-11-01 00:09] VITALS: BP 121/73
--- NOTE | 2021-11-01 00:49 | DISCHARGE SUMMARY ---
DATE OF SERVICE: DIAGNOSES: 1. Right knee primary osteoarthritis. 2. Breast cancer. 3. Colon cancer. 4. Hypertension. 5. Hyperlipidemia. PROCEDURE: Right total knee arthroplasty. SUMMARY: The patient is a 71-year-old female who underwent a right total knee arthroplasty on the day of admission. Postoperatively, she progressed well. At time of discharge, her wound was clean and dry. She had no calf tenderness. Negative Homans sign. She was tolerating a diet well and tolerating pain with oral pain medications. CONDITION AT DISCHARGE: Good. DISCHARGE DIET: Regular. FOLLOWUP: Followup is in three weeks. Home physical therapy will be arranged. ACTIVITIES: Weightbearing as tolerated with a walker as needed. DISCHARGE MEDICATIONS: Home medications. One aspirin per day for 30 days and Percocet as needed for pain. Job ID: [id number] DocumentID: [id number] Dictated Date: 10/31/2021 18:13:00 Straw Hat Brim Cutter Operator Date: 11/01/2021 00:48:48 Dictated By: ALBERTO COELHO MD
[2021-11-01] MEDS: oxyCODONE/APAP 5/325MG (PERCOCET 5) TABLET PO PRN ×5 (00:52→10:34)
[2021-11-01 03:53] VITALS: BP 131/76
[2021-11-01 05:55] LABS: BASOPHILS # (AUTO) 0.1 10^3/uL (0.0-0.1); BASOPHILS % (AUTO) 1 % (0-10); EOSINOPHILS # (AUTO) 0.1 10^3/uL (0.0-0.3); EOSINOPHILS % (AUTO) 1 % (0-10); HEMATOCRIT 30 % (35-52); LYMPHOCYTES # (AUTO) 1.6 10^3/uL (1.0-4.0); LYMPHOCYTES % (AUTO) 16 % (12-44); MEAN CORPUSCULAR HEMOGLOBIN 30 pg (25-34); MEAN CORPUSCULAR HGB CONC 33 g/dL (32-36); MEAN CORPUSCULAR VOLUME 90 fL (80-99); MEAN PLATELET VOLUME 8.9 fL (9.0-12.2); MONOCYTES # (AUTO) 1.2 10^3/uL (0.0-1.0); MONOCYTES % (AUTO) 12 % (0-12); NEUTROPHILS # (AUTO) 6.9 10^3/uL (1.8-7.8); NEUTROPHILS % (AUTO) 70 % (42-75); PLATELET COUNT 215 10^3/uL (130-400); WHITE BLOOD COUNT 9.9 10^3/uL (4.3-11.0)
[2021-11-01 06:07] LABS: POTASSIUM 3.4 MMOL/L (3.6-5.0)
[2021-11-01 06:08] LABS: CALCIUM 8.4 MG/DL (8.5-10.1)
[2021-11-01 06:13] LABS: CREATININE SERUM 0.79 MG/DL (0.60-1.30)
--- NOTE | 2021-11-01 07:01 | Progress Note ---
Standard Progress Note Progress Notes/Assess & Plan Date Seen by a Provider: Nov 01, 2021 Time Seen by a Provider: 07:00 Progress/Assessment & Plan post op check no complaints radiographs--HW well positioned without fracture RLE--2 plus DP pulse with brisk cap refill s/p RTKA mobilize as able Final Diagnosis no complaints Vital Signs Date Time Temp Pulse Resp B/P (MAP) Pulse Ox O2 Delivery O2 Flow Rate FiO2 11/01/21 03:53 36.6 71 18 131/76 (94) 96 Nasal Cannula 2.00 11/01/21 00:09 37.2 83 20 121/73 (89) 90 Room Air 10/31/21 21:37 Room Air 10/31/21 21:35 20 10/31/21 19:49 36.3 83 20 130/74 (92) 91 Room Air 10/31/21 15:00 37.4 88 20 144/83 (103) 93 Nasal Cannula 2.00 10/31/21 12:31 37.0 87 18 118/72 (87) 96 Room Air 10/31/21 09:00 Room Air 10/31/21 08:59 37.0 84 20 104/67 (79) 96 Room Air 10/31/21 07:30 20 I & O 11/01/21 06:59 Intake Total 3032 ml Output Total 1200 ml Balance 1832 ml Laboratory Tests Test 11/01/21 05:39 Range/Units White Blood Count 9.9 4.3-11.0 10^3/uL Red Blood Count 3.39 L 3.80-5.11 10^6/uL Hemoglobin 10.0 L 11.5-16.0 g/dL Hematocrit 30 L 35-52 % Mean Corpuscular Volume 90 80-99 fL Mean Corpuscular Hemoglobin 30 25-34 pg Mean Corpuscular Hemoglobin Concent 33 32-36 g/dL Red Cell Distribution Width 13.2 10.0-14.5 % Platelet Count 215 130-400 10^3/uL Mean Platelet Volume 8.9 L 9.0-12.2 fL Immature Granulocyte % (Auto) 0 % Neutrophils (%) (Auto) 70 42-75 % Lymphocytes (%) (Auto) 16 12-44 % Monocytes (%) (Auto) 12 0-12 % Eosinophils (%) (Auto) 1 0-10 % Basophils (%) (Auto) 1 0-10 % Neutrophils # (Auto) 6.9 1.8-7.8 10^3/uL Lymphocytes # (Auto) 1.6 1.0-4.0 10^3/uL Monocytes # (Auto) 1.2 H 0.0-1.0 10^3/uL Eosinophils # (Auto) 0.1 0.0-0.3 10^3/uL Basophils # (Auto) 0.1 0.0-0.1 10^3/uL Immature Granulocyte # (Auto) 0.0 0.0-0.1 10^3/uL Sodium Level 138 135-145 MMOL/L Potassium Level 3.4 L 3.6-5.0 MMOL/L Chloride Level 106 98-107 MMOL/L Carbon Dioxide Level 25 21-32 MMOL/L Anion Gap 7 5-14 MMOL/L Blood Urea Nitrogen 8 7-18 MG/DL Creatinine 0.79 0.60-1.30 MG/DL Estimat Glomerular Filtration Rate 72 BUN/Creatinine Ratio 10 Glucose Level 114 H 70-105 MG/DL Calcium Level 8.4 L 8.5-10.1 MG/DL Corrected Calcium 9.2 8.5-10.1 MG/DL Total Bilirubin 1.0 0.1-1.0 MG/DL Aspartate Amino Transf (AST/SGOT) 96 H 5-34 U/L Alanine Aminotransferase (ALT/SGPT) 135 H 0-55 U/L Alkaline Phosphatase 109 40-136 U/L Total Protein 6.0 L 6.4-8.2 GM/DL Albumin 3.0 L 3.2-4.5 GM/DL R knee incision clean and dry. No calf tenderness. Neg Alejandra's s/p RTKA doing well DC after PT today ALBERTO COELHO MD Nov 01, 2021 07:01
[2021-11-01 08:00] VITALS: BP 121/57
[2021-11-01] MEDS: SENNA W/DOCUSATE (SENOKOT S) TABLET PO SCH (08:32)
[2021-11-01] MEDS: PARoxetine 20 MG (PAXIL) TAB PO SCH (08:32)
[2021-11-01] MEDS: ASPIRIN E.C. 81 MG (ECOTRIN) TAB PO SCH (08:32)
[2021-11-01] MEDS: MULTIVIT W/MINERALS TAB (THERAGRAN M) PO SCH (08:32)
[2021-11-01] MEDS: PANTOPRAZOLE 40 MG (PROTONIX) TAB PO SCH (08:32)
[2021-11-01] MEDS: PROPRANOLOL 20 MG (INDERAL) TABLET PO SCH (08:32)
[2021-11-01] MEDS: ENOXAPARIN 30 MG/0.3 ML (LOVENOX) SYR SC SCH (08:33)
[2021-11-01] MEDS: LETROZOLE 2.5 MG (FEMARA) TAB PO SCH (08:40)
--- NOTE | 2021-11-01 09:33 | Physical Therapy Daily Note ---
PT Daily Note-Current Subjective Patient agrees to PT. Pain Numeric Pain Scale: 7 Location: Right Location Body Site: Knee Pain Description: Acute Mental Status Patient Orientation: Person, Time, Situation Transfers SCALE: Activities may be completed with or without assistive devices. 8-Suffzxpuni-zywuerr completes the activity by him/herself with no assistance from a helper. 5-Set-up or Clean-up Assistance-helper sets up or cleans up; patient completes activity. [place] assists only prior to or following the activity. 4-Supervision or Touching Assistance-helper provides verbal cues and/or touching/steadying and/or contact guard assistance as patient completes activity. Assistance may be provided throughout the activity or intermittently. 3-Partial/Moderate Assistance-helper does LESS THAN HALF the effort. [place] lifts, holds or supports trunk or limbs, but provides less than half the effort. 2-Substantial/Maximal Assistance-helper does MORE THAN HALF the effort. [place] lifts or holds trunk or limbs and provides more than half the effort. 8-Heujfdebn-yraevj does ALL the effort. Patient does none of the effort to complete the activity. Or, the assistance of 2 or more helpers is required for the patient to complete the activity. If activity was not attempted, code reason: 7-Patient Refused. 9-Not Applicable-not attempted and the patient did not perform the activity before the current illness, exacerbation or injury. 10-Not Attempted due to Environmental Limitations-(lack of equipment, weather restraints, etc.). 88-Not Attempted due to Medical Conditions or Safety Concerns. Lying to Sitting/Side of Bed(Q: 6 Sit to Stand (QC): 6 Chair/Omv-vw-Dauyh Xfer(QC): 6 Weight Bearing Right Lower Extremity: Right Weight Bearing/Tolerated Gait Training Does the Patient Walk?: Yes Distance: 250' x 2 Walk 10 feet (QC): 5 Walk 50 ft with 2 Turns(QC): 5 Walk 150 ft (QC): 5 Gait Assistive Device: FWW slow, shuffle gait sequence with VC's for foot clearance and body placement in FWW Stair Training Stair Training: Handrails/: 2 handrails #of Steps: 4 1 Step (curb) (QC): 4 4 Steps (QC): 4 Stairs: Pattern: Step to Exercises Supine Ex: Ankle pumps, Quad Set, Heel Slides, Straight leg raise Supine Reps: 12 Seated Therapy Exercises: Long arc quads Seated Reps: 12 Assessment Patient to dismiss to home with spouse and home health on this date. Patient progressing with treatment plan and has been instructed to perform HEP issued by physician. PT [facility] Goals Advisory Services Associate Goals PT Advisory Services Associate Goals Time Frame: Nov 06, 2021 Roll Left & Right (QC): 6 Sit to Lying (QC): 6 Lying-Sitting on Side/Bed(QC): 6 Sit to Stand (QC): 6 Chair/Ouo-ck-Ocerw Xfer(QC): 6 Walk 10 feet (QC): 6 Walk 50ft with 2 Turns (QC): 6 Walk 150 ft (QC): 6 1 Step (curb) (QC): 4 4 Steps (QC): 4 PT Plan Treatment/Plan Treatment Plan: Discontinue PT Treatment Plan: Bed Mobility, Education, Functional Activity Dejon, Functional Strength, Gait, Safety, Therapeutic Exercise, Transfers Treatment Duration: Nov 06, 2021 Frequency: 11 times per week Estimated Hrs Per Day: .25 hour per day Patient and/or Family Agrees t: Yes Time/GCodes Time In: 735 Time Out: 758 Total Billed Treatment Time: 23 Total Billed Treatment 1 visit EX 12 min FA 11 min ADRIANA MORE PT Nov 01, 2021 09:33
[2021-11-01] MEDS ORDERED: KCL 20 MEQ TAB (K-DUR) PO ONE (10:30)
--- NOTE | 2021-11-01 10:55 | Occupational Ther Daily Note ---
OT Current Status-Daily Note Subjective Pt alert, lying in bed. Pt agrees to therapy. Pt to d/c to home today. Mental Status/Objective Patient Orientation: Person, Place, Time, Situation ADL-Treatment Pt stated that she is able to don/doff socks by self and does not need any lower body drsg equipment. Pt has walk-in shower and high toilet to assist with mobility. Therapy Code Descriptions/Definitions Functional [place] Measure: 0=Not Assessed/NA 4=Minimal Assistance 1=Total Assistance 5=Supervision or Setup 2=Maximal Assistance 6=Modified [place] 3=Moderate Assistance 7=Complete IndependenceSCALE: Activities may be completed with or without assistive devices. 6-Laftsewbfn-ikdyuye completes the activity by him/herself with no assistance from a helper. 5-Set-up or Clean-up Assistance-helper sets up or cleans up; patient completes activity. Union assists only prior to or following the activity. 4-Supervision or Touching Assistance-helper provides verbal cues and/or touching/steadying and/or contact guard assistance as patient completes activity. Assistance may be provided throughout the activity or intermittently. 3-Partial/Moderate Assistance-helper does LESS THAN HALF the effort. Union lifts, holds or supports trunk or limbs, but provides less than half the effort. 2-Substantial/Maximal Assistance-helper does MORE THAN HALF the effort. Union lifts or holds trunk or limbs and provides more than half the effort. 2-Gvtsrhlwr-nifsxt does ALL the effort. Patient does none of the effort to complete the activity. Or, the assistance of 2 or more helpers is required for the patient to complete the activity. If activity was not attempted, code reason: 7-Patient Refused. 9-Not Applicable-not attempted and the patient did not perform the activity before the current illness, exacerbation or injury. 10-Not Attempted due to Environmental Limitations-(lack of equipment, weather restraints, etc.). 88-Not Attempted due to Medical Conditions or Safety Concerns. Other Treatment Pt completed 3 B UE exercises to increase strength for functional daily tasks. 15 reps 1 set of shldr abd/add, tricep ext,shldr flex/ext. After therapy, pt lying in bed with call light/phone in reach. All needs met in room. OT Prison Goals Prison Goals Time Frame: Nov 05, 2021 Oral Hygiene (QC): 6 Toileting Hygiene (QC): 6 Upper Body Dressing (QC): 5 Lower Body Dressing (QC): 5 On/Off Footwear (QC): 5 1=Demonstrate adherence to instructed precautions during ADL tasks. 2=Patient will verbalize/demonstrate understanding of assistive fatemeh cesar/modifications for ADL. 3=Patient will improve strength/tolerance for activity to enable patient to perform ADL's. OT Education/Plan Problem List/Assessment Assessment: Decreased UE Strength, Impaired Self-Care Skills Discharge Recommendations Plan/Recommendations: Discharge/Goals Met (discharging to home today) Treatment Plan/Plan of Care Patient would benefit from OT for education, treatment and training to promote independence in ADL's, mobility, safety and/or upper extremity function for ADL's. Plan of Care: ADL Retraining, Functional Mobility, UE Funct Exercise/Act Treatment Duration: Nov 05, 2021 Frequency: 3 times per week Estimated Hrs Per Day: .25 hour per day Agreement: Yes Rehab Potential: Fair Time/GCodes Start Time: 10:00 Stop Time: 10:12 Total Time Billed (hr/min): 12 Billed Treatment Time 1 visit-FA 1 (12 min) MEET CASTILLO Nov 01, 2021 10:55
--- NOTE | 2021-11-01 12:44 | Progress Note ---
SHARLENE CRUZ 11/01/21 1244: Subjective Date Seen by a Provider: Nov 01, 2021 Time Seen by a Provider: 10:30 Subjective/Events-last exam Patient is sitting up in chair, alert, and calm. She states that her right knee pain is better today, rating as a 3-4/10 with movement. She has very little to no pain at rest. Her pain is located on the anterior and posterior aspects of her right knee. Reports that she is going home today and will be picked up by her . She states she feels ready. States that PT has been going well. She performed exercises this morning and went up and down the stairs. She periodically uses her incentive spirometer. Counseled patient to use it more often and moved it closer to her. States she still has a poor appetite but has not had trouble with solids or liquids. She has had a BM. Her potassium is 3.4, plan to administer potassium chloride 20 meq PO prior to discharge. Review of Systems General: No Appetite (reports poor appetite) HEENT: No Head Aches, No Visual Changes, No Other (denies hearing changes) Pulmonary: No Dyspnea, No Cough Cardiovascular: No: Chest Pain, Palpitations Gastrointestinal: No: Nausea, Vomiting, Abdominal Pain Musculoskeletal: other (right knee pain) Objective Exam Last Set of Vital Signs Vital Signs Date Time Temp Pulse Resp B/P (MAP) Pulse Ox O2 Delivery O2 Flow Rate FiO2 11/01/21 10:58 11/01/21 09:28 Room Air 11/01/21 08:00 36.9 83 18 91 2.00 Capillary Refill : Less Than 3 Seconds I&O Intake and Output 11/01/21 00:00 Intake Total 2882 ml Output Total 300 ml Balance 2582 ml Intake Oral 1832 ml IV Total 1050 ml Output Urine Total 300 ml # Voids 5 # Bowel Movements 1 General: Alert, Cooperative, No Acute Distress HEENT: Atraumatic Lungs: Normal Air Movement, Other (crackles auscultated on the left posteriorly) Heart: Regular Rate Abdomen: Normal Bowel Sounds Extremities: Other (dressing present on right knee) Neuro: Normal Speech Results Lab Laboratory Tests 11/01/21 05:39: White Blood Count 9.9, Red Blood Count 3.39L, Hemoglobin 10.0L, Hematocrit 30L, Mean Corpuscular Volume 90, Mean Corpuscular Hemoglobin 30, Mean Corpuscular Hemoglobin Concent 33, Red Cell Distribution Width 13.2, Platelet Count 215, Mean Platelet Volume 8.9L, Immature Granulocyte % (Auto) 0, Neutrophils (%) (Auto) 70, Lymphocytes (%) (Auto) 16, Monocytes (%) (Auto) 12, Eosinophils (%) (Auto) 1, Basophils (%) (Auto) 1, Neutrophils # (Auto) 6.9, Lymphocytes # (Auto) 1.6, Monocytes # (Auto) 1.2H, Eosinophils # (Auto) 0.1, Basophils # (Auto) 0.1, Immature Granulocyte # (Auto) 0.0, Sodium Level 138, Potassium Level 3.4L, Chloride Level 106, Carbon Dioxide Level 25, Anion Gap 7, Blood Urea Nitrogen 8, Creatinine 0.79, Estimat Glomerular Filtration Rate 72, BUN/Creatinine Ratio 10, Glucose Level 114H, Calcium Level 8.4L, Corrected Calcium 9.2, Total Bilirubin 1.0, Aspartate Amino Transf (AST/SGOT) 96H, Alanine Aminotransferase (ALT/SGPT) 135H, Alkaline Phosphatase 109, Total Protein 6.0L, Albumin 3.0L Assessment/Plan Assessment/Plan Assess & Plan/Chief Complaint Assessment: S/p right total knee arthroplasty Anemia, likely due to surgery Hyperlipidemia HTN A+ blood type Depression Anxiety S/p breast cancer with mastectomy, currently taking letrozole S/p colon cancer with colon resection Chronic diarrhea due to colon resection Osteoarthritis Suppressed appetite BMI of 30.5 Hypokalemia Plan: Pain management Administer 20 meq PO potassium chloride Discharge home Follow up with orthopedics in outpatient setting Use incentive spirometer at home TAISHA LIZARRAGA DO 11/02/21 0801: Subjective Subjective/Events-last exam Pt ready for discharge Dr. Latif is pleased with her progress Potassium supplement will be given x1 due to Potassium of 3.4 Pain is well controlled Review of Systems Musculoskeletal: leg pain Objective Exam General: Alert, Oriented X3, Cooperative, No Acute Distress Lungs: Clear to Auscultation, Normal Air Movement Heart: Regular Rate, Normal S1, Normal S2, No Murmurs Assessment/Plan Assessment/Plan Assess & Plan/Chief Complaint DC as planned Replace potassium Supervisory-Addendum Brief Verification & Attestation Participated in pt care: history, MDM, physical Personally performed: exam, history, MDM, supervision of care Care discussed with: Medical Student Procedures: n/a Results interpretation: Verified all documentation Verification and Attestation of Medical Student E/M Service A medical student performed and documented this service in my presence. I reviewed and verified all information documented by the medical student and made modifications to such information, when appropriate. I personally performed the physical exam and medical decision making. Taisha Lizarraga, Nov 02, 2021,08:01 SHARLENE CRUZ Nov 01, 2021 12:44 TAISHA LIZARRAGA DO Nov 02, 2021 08:01
== END 2021-11-01 11:01 | disposition home health service (06) | DRG 470 ==
LOC: 4TH 06:00 → SURG 06:01 → 4TH 10:00
PROVIDERS: ADMIT Orthopaedic Surgery; ATTEND Orthopaedic Surgery
PROC: 0SRC0J9 Replacement of Right Knee Joint with Synthetic Substitute, Cemented, Open Approach (ICD-10-PCS; principal; 2021-10-30 07:30)
DX: M17.11 Unilateral primary osteoarthritis, right knee (principal); D62 Acute posthemorrhagic anemia; I10 Essential (primary) hypertension; E78.5 Hyperlipidemia, unspecified; E87.6 Hypokalemia; E78.00 Pure hypercholesterolemia, unspecified; G43.909 Migraine, unspecified, not intractable, without status migrainosus; F41.9 Anxiety disorder, unspecified; F32.A Depression, unspecified; K52.9 Noninfective gastroenteritis and colitis, unspecified; Z85.038 Personal history of other malignant neoplasm of large intestine; Z85.3 Personal history of malignant neoplasm of breast; Z90.10 Acquired absence of unspecified breast and nipple; Z90.49 Acquired absence of other specified parts of digestive tract; Z92.21 Personal history of antineoplastic chemotherapy; Z92.3 Personal history of irradiation
CPT/HCPCS: 36415; 73560; 80053; 85014; 85018; 85025; 86850; 86900; 86901; 94664; 94760

== ENCOUNTER → 2021-11-22 | Outpatient (CLI) | payer MEDICARE, OTHER ==
[~2021-11-22] VITALS: Ht 172.7 cm; Wt 90.9 kg
== END | disposition home or self-care (01) ==
LOC: PREOP 05:44
PROVIDERS: ATTEND Specialist
DX: Z01.818 Encounter for other preprocedural examination (principal)

== ENCOUNTER → 2021-11-25 | Outpatient (RCR) | payer MEDICARE, OTHER | END | disposition home or self-care (01) | PROVIDERS: ATTEND Orthopaedic Surgery | DX: Z47.1 Aftercare following joint replacement surgery (principal); I10 Essential (primary) hypertension; Z96.651 Presence of right artificial knee joint ==

== ENCOUNTER 2021-11-29 06:42 | Day surgery (SDC) | payer MEDICARE, OTHER ==
[~2021-11-29] VITALS: Ht 167 cm; Wt 94.0 kg
[2021-11-29] MEDS ORDERED: POVIDONE (BETADINE) OPHTH SOLN 5% 30 ML OP ONE (07:00)
[2021-11-29] MEDS ORDERED: LIDOCAINE PF 1% 2 ML VIAL IR PRN (07:00)
[2021-11-29] MEDS ORDERED: TIMOLOL MALEATE 0.5% 5 ML (TIMOPTIC) BTL OU PRN (07:00)
[2021-11-29] MEDS: TETRACAINE 0.5% OPHTH SOLN 4 ML BTL (SINGLE DOSE ONLY) OU PRN ×4 (07:00→07:19)
[2021-11-29] MEDS ORDERED: MOXIFLOXACIN OPHTH SOLN 5 MG/ML 0.3 ML SYRINGE OP ONE (07:00)
[2021-11-29] MEDS: TROPICAMIDE 1% OPH SOLN (MYDRIACYL) 15 ML BTL OP SCH ×3 (07:08→07:19)
[2021-11-29] MEDS: PHENYLEPHRINE 10% OPHTH (NEO-SYN) 5 ML BTL OU SCH ×3 (07:08→07:19)
[2021-11-29 07:10] VITALS: BP 139/84
[2021-11-29] MEDS ORDERED: MIDAZOLAM 2 MG/2 ML (VERSED) VIAL ONE (07:10)
--- NOTE | 2021-11-29 07:30 | Ophthalmologist Pre-Op Note ---
Pre-Operative Progress Note H&P Reviewed The H&P was reviewed, patient examined and no changes noted. Date H&P Reviewed: Nov 29, 2021 Time H&P Reviewed: 07:25 Pre-Op Dx Cataract, Right Eye DARIUS WALLIS MD Nov 29, 2021 07:30
--- NOTE | 2021-11-29 07:48 | Ophthalmology Operative Report ---
Cataract removal/placement IOL PREOPERATIVE DIAGNOSIS: Cataract Right Eye POSTOPERATIVE DIAGNOSIS: Cataract Right Eye PROCEDURE: Cataract removal and placement of posterior chamber implant, right eye SURGEON: Radhames Wallis ANESTHESIA: Topical with sedation COMPLICATIONS: None ESTIMATED BLOOD LOSS: Minimal DESCRIPTION OF PROCEDURE: After proper informed consent was obtained, the patient, a 71 female, was taken to the Operating Room and the right eye was anesthetized with tetracaine. The right eye was then prepped and draped in the usual manner. A wire lid speculum was placed. A paracentesis was made at the left hand position. Preservative free lidocaine was injected into the anterior chamber followed by viscoelastic. A clear corneal incision was made in the temporal position. A capsulorrhexis was preformed and the central nuclear and cortical material were removed. The posterior capsule was polished and Og 20.0 AU00T0 IOL was placed into the capsular bag. The residual viscoelastic was aspirated and balanced saline solution was injected into the anterior chamber. Moxifloxacin was injected into the anterior chamber. The wound was checked and found to be water tight. The patient tolerated the procedure well without complications. RADHAMES WALLIS MD Nov 29, 2021 07:48
[2021-11-29] MEDS ORDERED: acetaZOLAMIDE ER 500 MG CAP (DIAMOX SEQUELS) PO ONE (08:00)
--- NOTE | 2021-11-29 12:21 | Anesthesia-General Post-Op ---
MAC Patient Condition Mental Status/LOC: Same as Preop Cardiovascular: Satisfactory Nausea/Vomiting: Absent Respiratory: Satisfactory Pain: Controlled Complications: Absent Post Op Complications Complications None Follow Up Care/Instructions Patient Instructions None needed. Anesthesiology Discharge Order Discharge Order Patient is doing well, no complaints, stable vital signs, no apparent adverse anesthesia problems. No complications reported per nursing. CATRACHO KEN CRNA Nov 29, 2021 12:21
== END 2021-11-29 07:55 | disposition home or self-care (01) ==
LOC: SDC 06:42
PROVIDERS: ATTEND Specialist
DX: H25.11 Age-related nuclear cataract, right eye (principal); E78.00 Pure hypercholesterolemia, unspecified; Z79.899 Other long term (current) drug therapy
CPT/HCPCS: 66984; V2632

== ENCOUNTER 2021-12-13 07:00 | Day surgery (SDC) | payer MEDICARE, OTHER ==
[~2021-12-13] VITALS: Ht 167 cm; Wt 94.0 kg
[2021-12-13 07:10] VITALS: BP 142/83
[2021-12-13] MEDS ORDERED: MIDAZOLAM 2 MG/2 ML (VERSED) VIAL ONE (07:12)
[2021-12-13] MEDS ORDERED: LIDOCAINE PF 1% 2 ML VIAL IR PRN (07:15)
[2021-12-13] MEDS ORDERED: MOXIFLOXACIN OPHTH SOLN 5 MG/ML 0.3 ML SYRINGE OP ONE ×2 (07:15)
[2021-12-13] MEDS ORDERED: acetaZOLAMIDE ER 500 MG CAP (DIAMOX SEQUELS) PO ONE ×2 (07:15)
[2021-12-13] MEDS ORDERED: POVIDONE (BETADINE) OPHTH SOLN 5% 30 ML OP ONE ×2 (07:15)
[2021-12-13] MEDS ORDERED: PHENYLEPHRINE 10% OPHTH (NEO-SYN) 5 ML BTL OU SCH (07:15)
[2021-12-13] MEDS ORDERED: TIMOLOL MALEATE 0.5% 5 ML (TIMOPTIC) BTL OU PRN ×2 (07:15)
[2021-12-13] MEDS ORDERED: TROPICAMIDE 1% OPH SOLN (MYDRIACYL) 15 ML BTL OP SCH (07:15)
[2021-12-13] MEDS ORDERED: TETRACAINE 0.5% OPHTH SOLN 4 ML BTL (SINGLE DOSE ONLY) OU PRN (07:15)
[2021-12-13] MEDS: TETRACAINE 0.5% OPHTH SOLN 4 ML BTL (SINGLE DOSE ONLY) OU PRN ×4 (07:22→07:38)
[2021-12-13] MEDS: LIDOCAINE PF 1% 2 ML VIAL IR PRN ×2 (07:27→08:18)
[2021-12-13] MEDS: PHENYLEPHRINE 10% OPHTH (NEO-SYN) 5 ML BTL OU SCH ×3 (07:28→07:39)
[2021-12-13] MEDS: TROPICAMIDE 1% OPH SOLN (MYDRIACYL) 15 ML BTL OP SCH ×3 (07:28→07:39)
--- NOTE | 2021-12-13 08:05 | Ophthalmologist Pre-Op Note ---
Pre-Operative Progress Note H&P Reviewed The H&P was reviewed, patient examined and no changes noted. Date H&P Reviewed: Dec 13, 2021 Time H&P Reviewed: 08:05 Pre-Op Dx Cataract, Left Eye DARIUS WALLIS MD Dec 13, 2021 08:05
--- NOTE | 2021-12-13 08:26 | Ophthalmology Operative Report ---
Cataract removal/placement IOL PREOPERATIVE DIAGNOSIS: Cataract Left Eye POSTOPERATIVE DIAGNOSIS: Cataract Left Eye PROCEDURE: Cataract removal and placement of posterior chamber implant, left eye SURGEON: Radhames Wallis ANESTHESIA: Topical with sedation COMPLICATIONS: None ESTIMATED BLOOD LOSS: Minimal DESCRIPTION OF PROCEDURE: After proper informed consent was obtained, the patient, a 71 female, was taken to the Operating Room and the left eye was anesthetized with tetracaine. The left eye was then prepped and draped in the usual manner. A wire lid speculum was placed. A paracentesis was made at the left hand position. Preservative free lidocaine was injected into the anterior chamber followed by viscoelastic. A clear corneal incision was made in the temporal position. A capsulorrhexis was preformed and the central nuclear and cortical material were removed. The posterior capsule was polished and an Og 20.5 AU00T0 was placed into the capsular bag. The residual viscoelastic was aspirated and balanced saline solution was injected into the anterior chamber. Moxifloxacin was injected into the anterior chamber. The wound was checked and found to be water tight. The patient tolerated the procedure well without complications. RADHAMES WALLIS MD Dec 13, 2021 08:26
[2021-12-13 08:33] VITALS: BP 134/84
--- NOTE | 2021-12-13 10:44 | Anesthesia-General Post-Op ---
MAC Patient Condition Mental Status/LOC: Same as Preop Cardiovascular: Satisfactory Nausea/Vomiting: Absent Respiratory: Satisfactory Pain: Controlled Complications: Absent Post Op Complications Complications None Follow Up Care/Instructions Patient Instructions None needed. Anesthesiology Discharge Order Discharge Order Patient is doing well, no complaints, stable vital signs, no apparent adverse anesthesia problems. No complications reported per nursing. ALLY BRODERICK CRNA Dec 13, 2021 10:44
== END 2021-12-13 08:36 | disposition home or self-care (01) ==
LOC: SDC 07:00
PROVIDERS: ATTEND Specialist
DX: H25.9 Unspecified age-related cataract (principal); I10 Essential (primary) hypertension; K21.9 Gastro-esophageal reflux disease without esophagitis; F32.A Depression, unspecified; Z79.82 Long term (current) use of aspirin; Z79.899 Other long term (current) drug therapy; Z85.3 Personal history of malignant neoplasm of breast; Z85.038 Personal history of other malignant neoplasm of large intestine
CPT/HCPCS: 66984; V2632

== ENCOUNTER → 2021-12-23 | Outpatient (RCR) | payer MEDICARE, OTHER | END | disposition home or self-care (01) | PROVIDERS: ATTEND Orthopaedic Surgery | DX: Z47.1 Aftercare following joint replacement surgery (principal); I10 Essential (primary) hypertension; Z96.651 Presence of right artificial knee joint ==

== ENCOUNTER 2022-01-01 10:29 | Outpatient (RCR) | payer MEDICARE, OTHER | END 2022-01-01 11:00 | disposition home or self-care (01) | PROVIDERS: ATTEND Orthopaedic Surgery | DX: Z47.1 Aftercare following joint replacement surgery (principal); I10 Essential (primary) hypertension; Z96.651 Presence of right artificial knee joint ==

== ENCOUNTER → 2022-02-25 | Outpatient (CLI) | payer MEDICARE, OTHER ==
--- NOTE | 2022-02-25 09:07 | Diagnostic Imaging Report ---
INDICATION: Postmenopausal state. COMPARISON: None available. FINDINGS: AP Spine L1-L4: [BMD (g/cm2): 1.284] [T-Score: 0.7] [Z-Score: 1.6] [BMD Previous: na] [BMD % Change: na] LT Hip Neck: [BMD (g/cm2): 0.960] [T-Score: -0.6] [Z-Score: 0.7] LT Hip Total: [BMD (g/cm2):1.072] [T-Score:0.5] [Z-Score: 1.5] [BMD Previous: na] [BMD % Change: na] RT Hip Neck: [BMD (g/cm2):1.028] [T-Score:-0.1] [Z-Score:1.2] RT Hip Total: [BMD (g/cm2):1.107] [T-score:0.8] [Z-Score:1.8] [BMD Previous:na] [BMD % Change:na] *Indicates significant change from prior examination based on 95% confidence level. World Health Organization criteria for BMD interpretation classify patients as Normal (T-score at or above -1.0), Osteopenic (T-score between -1.0 and -2.5) or Osteoporotic (T-score at or below -2.5). LIMITATIONS AND MODIFICATION: None. IMPRESSION: 1. Normal bone mineral density. 2. Baseline examination. 3. See below National Osteoporosis Foundation guidelines on when to potentially initiate pharmacologic therapy. Based on the National Osteoporosis Foundation Guidelines, pharmacologic treatment should be initiated in any of the following, unless clinical conditions suggest otherwise: * Any patient with prior fragility fracture of the hip or vertebrae. A spine fracture indicates 5X risk for subsequent spine fracture and 2X risk for subsequent hip fracture. * Osteoporosis (T-score <-2.5). * Postmenopausal women and men age 50 and older with low bone mass/osteopenia (T-score between -1.0 and -2.5) by DXA and 10-year major osteoporotic fracture greater than 20% or a 10-year probability of hip fracture greater than 3%. These fracture risks are supplied above in the FRAX score, if applicable. * Clinician judgement and/or patient preferences may indicate treatment for people with 10-year fracture probabilities above or below these levels. Dictated by: Dictated on workstation # [id number]
== END ==
LOC: RAD 08:01
PROVIDERS: ATTEND Nurse Practitioner Adult Health
DX: D05.12 Intraductal carcinoma in situ of left breast (principal); Z78.0 Asymptomatic menopausal state; Z79.811 Long term (current) use of aromatase inhibitors
CPT/HCPCS: 77080

== ENCOUNTER 2022-07-22 05:30 | Outpatient (CLI) | payer MEDICARE, OTHER ==
[~2022-07-22] VITALS: Ht 172.7 cm; Wt 90.9 kg
== END 2022-07-22 10:57 ==
LOC: PREOP 05:30
PROVIDERS: ATTEND Surgery
DX: Z01.818 Encounter for other preprocedural examination (principal); Z85.3 Personal history of malignant neoplasm of breast

== ENCOUNTER 2022-07-24 08:23 | Day surgery (SDC) | payer MEDICARE, OTHER ==
[2022-07-24] VITALS (8 sets, daily range): BP systolic 130–149; BP diastolic 74–102
[~2022-07-24] VITALS: Ht 172.7 cm; Wt 90.9 kg
--- NOTE | 2022-07-24 08:29 | Progress Note-Pre Operative ---
Pre-Operative Progress Note Date of Available H&P: Jul 07, 2022 Date H&P Reviewed: Jul 24, 2022 Time H&P Reviewed: 08:28 History & Physical: H&P Reviewed, Patient Examed, No changes noted Pre-Operative Diagnosis: hx breast cancer CAROLINA CASAS DO Jul 24, 2022 08:29
[2022-07-24] MEDS ORDERED: LACTATED RINGERS 1,000 ML IV PRN (08:45)
[2022-07-24] MEDS ORDERED: ceFAZolin INJECTION 2,000 MG in NS (IVPB) 50 ML IV ONE (08:45)
[2022-07-24] MEDS ORDERED: LIDOCAINE/EPI 2% 1:200,00 (XYLOCAINE) 10 ML VIAL ONE (09:03)
[2022-07-24] MEDS ORDERED: PROPOFOL INJECTION 50 ML IV ONE (09:44)
[2022-07-24] MEDS ORDERED: LIDOCAINE/EPI 2% 1:200,00 (XYLOCAINE) 10 ML VIAL INJ ONE (09:45)
--- NOTE | 2022-07-24 09:51 | Discharge Inst-Simple/Standard ---
Discharge Inst-Standard Patient Instructions/Follow Up Plan of Care/Instructions/FU: 2 weeks delphine Activity as Tolerated: No Discharge Diet: Regular Diet Other Inst to Patient Follow up Appt: Make appointment for 2 week. Instructions: No lifting greater than 10 pounds. No strenuous activity. May shower in 24 hours, no tub bath or soaking. Use incentive spirometer at home as directed. No Smoking Skin/Wound Care: You have special glue over your incision that will fall off on it's own. Symptoms to Report: Appetite Changes, Extremity Discoloration, Numbness/Tingling, Swelling Increased, Bleeding Excessive, Eyesight Changes, Pain Increased, Urine Color Change, Constipation(Persistent), Fever over 101 degree F, Pain/Pressure in chest, Urinating Difficulty, Cough Up/Vomit Blood, Heart Beat Irreg/Pounding, Pain/Pressure in jaw, Vaginal Bleeding Increase, Cramps in feet or legs, Lightheadedness, Pain/Pressure in shoulder, Diarrhea(Persistent), Memory Changes Suddenly, Questions/Concerns, Weight gain consecutive days, Dizziness/Fainting, Nausea/Vomiting, Shortness of Breath, Weight gain over 2 pounds If questions or concerns contact your physician Or seek help at emergency department. CAROLINA CASAS DO Jul 24, 2022 09:51
--- NOTE | 2022-07-24 09:53 | Progress Note-Post Operative ---
Post-Operative Progess Note Surgeon (s)/Multimedia Specialist (s) Surgeon CAROLINA CASAS DO Multimedia Specialist: na Pre-Operative Diagnosis hx breast cancer Post-Operative Diagnosis same Procedure & Operative Findings Date of Procedure 07/24/22 Procedure Performed/Findings PROCEDURE: Removal of port, COMPLICATIONS: None. INDICATIONS: The patient is a 72 year-old female who had a port previously placed. Patient is ok to have port removed. The patient was explained risk and benefits of the procedure and wished to proceed with procedure. Consent was signed on the chart. PROCEDURE: The patient was taken to the operating suite and was prepped and draped in sterile fashion. A surgical pause was performed. Local anesthetic was infiltrated to the area around the port. A number 15 blade scalpel was used to make an incision. Cautery was used to dissect down to the port which was then grasped and then dissected around. The catheter was removed in its entirety. The port was then able to be dissected out of the pocket and elevated. The wound was then irrigated with copious amounts of irrigation. Hemostasis had been achieved. The subcutaneous tissues were then reapproximated using 3-0 Vicryl. Skin was then closed using Skin Affix placed over the incision. The patient tolerated the procedure well without complication and was taken to recovery room in stable condition. Anesthesia Type mac c local Estimated Blood Loss Estimated blood loss (mL): minimal Specimens/Packing Specimens Removed CAROLINA Ramsay DO Jul 24, 2022 09:53
--- NOTE | 2022-07-24 09:55 | Anesthesia-General Post-Op ---
MAC Patient Condition Mental Status/LOC: Same as Preop Cardiovascular: Satisfactory Nausea/Vomiting: Absent Respiratory: Satisfactory Pain: Controlled Complications: Absent Post Op Complications Complications None Follow Up Care/Instructions Patient Instructions None needed. Anesthesiology Discharge Order Discharge Order Patient is doing well, no complaints, stable vital signs, no apparent adverse anesthesia problems. No complications reported per nursing. CATRACHO KEN CRNA Jul 24, 2022 09:55
[2022-07-24] MEDS ORDERED: fentaNYL INJ 100 MCG/2 ML AMP IVP ONE (10:00)
[2022-07-24] MEDS ORDERED: ONDANSETRON 4 MG/2 ML (SDV) Z0FRAN IVP PRN (10:00)
== END 2022-07-24 11:00 | disposition home or self-care (01) ==
LOC: SDC 08:23
PROVIDERS: ATTEND Surgery
DX: Z85.3 Personal history of malignant neoplasm of breast (principal); Z79.82 Long term (current) use of aspirin; E66.9 Obesity, unspecified; Z68.30 Body mass index [BMI] 30.0-30.9, adult
CPT/HCPCS: 87081

== ENCOUNTER → 2023-07-01 | Outpatient (CLI) | payer MEDICARE, OTHER ==
[~2023-07-01] VITALS: Ht 172.7 cm; Wt 92.3 kg
[~2023-07-01] MED LIST changes: +LIDOCAINE 1% INJ 10 ML VIAL INJ ONE; +LIDOCAINE 1% INJ 10 ML VIAL ONE; +MIDAZOLAM INJ 2 MG/2 ML VIAL IVP ONE; +NS IV 1000 ML 1,000 ML IV STA; +fentaNYL INJECTION 100 MCG/2 ML VIAL IVP ONE
--- NOTE | 2023-07-01 12:18 | Diagnostic Imaging Report ---
INDICATION: History of breast carcinoma, status post bilateral mastectomies. Patient has a new palpable nodule in the right chest wall. Patient presents for biopsy using ultrasound guidance. Patient brought to the sonographic suite placed on table in supine position. Ultrasound imaging of the right anterior chest was performed to evaluate appropriate entry site. Right chest was prepped and draped in usual sterile fashion. Small amount of 1% lidocaine was utilized for local anesthesia. 4 core biopsies were obtained of the hyperechoic mass in the right chest wall utilizing 14-gauge Achieve needle. A marker clip was then deployed. Hemostasis was obtained using manual compression. Patient tolerated the procedure well and left the department in stable condition. IMPRESSION: Successful ultrasound guided biopsy of the hypoechoic solid mass in the right chest wall. Pathology results are currently pending. Dictated by: Dictated on workstation # [id number]
== END ==
LOC: RAD 08:05
PROVIDERS: ATTEND Internal Medicine Hematology & Oncology
DX: R22.2 Localized swelling, mass and lump, trunk (principal); Z85.3 Personal history of malignant neoplasm of breast
CPT/HCPCS: 19083